=== PATIENT | female | born 1935 | race Caucasian/White ===

== ENCOUNTER 2017-08-06 15:55 | Emergency (ER) | payer MEDICARE, BC ==
[2017-08-06 16:31] VITALS: BP 167/78; PULSE 96; RESP 18; TEMP 98.3
--- NOTE | 2017-08-06 17:59 | ED ---
General Adult HPI - General Chief complaint: Extremity Problem,Nontraumatic Stated complaint: left leg pain Time Seen by Provider: 08/06/17 17:13 Source: patient, RN notes reviewed, old records reviewed Mode of arrival: wheelchair Limitations: no limitations - History of Present Illness Initial comments: 81-year-old female presents emergency Department with chief complaint of left lower extremity pain. Patient states that today she felt a pop in her knee and complains of pain within the posterior stress of her leg. She does have a history of varicose veins. She states that she has had no history of blood clots. Patient relates that she reports no significant swelling to the leg. Denies any peripheral paresthesias. She states that the pain is worse with range of motion and flexion. - Related Data Previous Rx's Medication Instructions Recorded Ibuprofen 600 mg PO TID #20 tablet 08/06/17 Allergies Allergy/AdvReac Type Severity Reaction Status Date / Time codeine Allergy Nausea Verified 08/06/17 16:31 hydrocodone [From Vicodin] Allergy Nausea Verified 08/06/17 16:31 Review of Systems ROS Statement: Those systems with pertinent positive or pertinent negative responses have been documented in the HPI. ROS Other: All systems not noted in ROS Statement are negative. Past Medical History Past Medical History: No Reported History History of Any Multi-Drug Resistant Organisms: None Reported Past Surgical History: Hysterectomy, Joint Replacement Additional Past Surgical History / Comment(s): right and left hip replacement, bunionectomy Past Psychological History: No Psychological Hx Reported Smoking Status: Never smoker Past Alcohol Use History: None Reported Past Drug Use History: None Reported General Exam - General Exam Comments Initial Comments: 81-year-old female. Alert and oriented. No distress. Limitations: no limitations Head exam: Present: atraumatic, normocephalic, normal inspection Eye exam: Present: normal appearance, PERRL, EOMI. Absent: scleral icterus, conjunctival injection, periorbital swelling ENT exam: Present: normal exam, mucous membranes moist Neck exam: Present: normal inspection. Absent: tenderness, meningismus, lymphadenopathy Respiratory exam: Present: normal lung sounds bilaterally. Absent: respiratory distress, wheezes, rales, rhonchi, stridor Cardiovascular Exam: Present: regular rate, normal rhythm, normal heart sounds. Absent: systolic murmur, diastolic murmur, rubs, gallop, clicks GI/Abdominal exam: Present: soft, normal bowel sounds. Absent: distended, tenderness, guarding, rebound, rigid Extremities exam: Present: normal inspection, full ROM, normal capillary refill. Absent: tenderness, pedal edema, joint swelling, calf tenderness Left Upper Leg exam: Present: normal inspection, full ROM Knee exam: Present: normal inspection. Absent: full ROM (Patient reports pain with flexion greater than 90.) Lower Leg exam: Present: full ROM (Evidence of varicose veins over the left lower extremity. She reports these have been chronic.). Absent: normal inspection Ankle exam: Present: normal inspection, full ROM Foot/Toe exam: Present: normal inspection, full ROM Neurovascular tendon exam: Present: no vascular compromise Gait: observed and limited by pain Course Vital Signs 08/06/17 16:27 Temperature 98.3 F Pulse Rate 96 Respiratory 18 Rate Blood Pressure 167/78 O2 Sat by Pulse 98 Oximetry Procedures - Orthopedic Splinting/Casting Injury #1 Side: left Lower Extremity Injury Location: knee Lower Extremity Immobilizer: knee immobilizer Medical Decision Making - Medical Decision Making Patient is an 81-year-old female chief complaint of left knee pain for the past 2 days. She reports that today she felt a popping sensation within her knee. She is also concern for possibility of a blood clot. She has had varicose veins. Temperature ultrasound was performed and negative for DVT. X-ray showed a normal knee and. Patient does have some pain with range of motion of her knee. Due to question the possibility of ligamentous or meniscal injury. I informed Patient of these results. Discussed following up with Dr. wojciech Mccarty the orthopedics physician. We'll put the Patient on anti-inflammatory medicine and keep the knee up and elevated. Discharge her with any immobilizer. All questions answered and return parameters were discussed. - Radiology Data Radiology results: report reviewed Negative left knee exam. Ultrasound is negative for DVT. Disposition Clinical Impression: Left knee sprain Disposition: HOME SELF-CARE Condition: Good Instructions: Knee Sprain (ED) Additional Instructions: Patient has a follow-up with primary care provider. Take anti-inflammatory medicine as prescribed. Use Shukri wrap. Return to the emergency department if any alarming signs or symptoms occur. Follow-up with manipulative therapy specialist. Prescriptions: Ibuprofen 600 mg PO TID #20 tablet Is patient prescribed a controlled substance at d/c from ED?: No When asked, does pt state using other controlled substances?: No If prescribed controlled substance>3 days was MAPS reviewed?: No If opioid is for acute pain is fill amount 7 days or less?: No If Rx opioid, was Start Talking consent form obtained?: No Referrals: Esau Wiley MD [Primary Care Provider] - 1-2 days Gage Fontana DO [Doctor of Osteopathic Medicine] - 1-2 days Time of Disposition: 18:35
--- NOTE | 2017-08-06 18:14 | XR ---
EXAMINATION TYPE: XR knee complete LT DATE OF EXAM: 08/06/2017 COMPARISON: NONE HISTORY: Knee pain TECHNIQUE: 3 views FINDINGS: I see no fracture nor dislocation. Joint spaces are normal. There is spurring on the superi or patella. There is no sign of a joint effusion. IMPRESSION: Negative left knee exam.
--- NOTE | 2017-08-06 18:26 | US ---
EXAMINATION TYPE: US venous doppler duplex LE LT DATE OF EXAM: 08/06/2017 6:09 PM COMPARISON: NONE CLINICAL HISTORY: Pain. Left leg pain SIDE PERFORMED: left TECHNIQUE: The lower extremity deep venous system is examined utilizing real time linear array sonog ermelinda with graded compression, doppler sonography and color-flow sonography. VESSELS IMAGED: External Iliac Vein (EIV) Common Femoral Vein Deep Femoral Vein Greater Saphenous Vein * Femoral Vein Popliteal Vein Small Saphenous Vein * Proximal Calf Veins (* superficial vessels) Left Leg: No evidence of DVT as visualized. Patient unable to tolerate compression at lower femoral vein IMPRESSION: Negative exam. No evidence of deep venous thrombosis in the left leg.
== END 2017-08-06 19:10 | disposition home or self-care (01) ==
LOC: EC 15:55
DX: S83.92XA Sprain of unspecified site of left knee, initial encounter (principal); Z88.5 Allergy status to narcotic agent; M79.605 Pain in left leg
CPT/HCPCS: 99284

== ENCOUNTER → 2017-08-13 | Outpatient (CLI) | payer MEDICARE, BC ==
--- NOTE | 2017-08-13 10:21 | MR ---
EXAMINATION TYPE: MR knee LT wo con DATE OF EXAM: 08/13/2017 COMPARISON: Outside left knee x-ray from yesterday HISTORY: Left knee pain per order. Possible turning injury with pain since August 06 per patient. TECHNIQUE: Multiplanar, multisequence images of the knee is performed without IV contrast. FINDINGS: MEDIAL MENISCUS: Anterior horn is intact without tear. There is subtle globular increased signal post erior horn of medial meniscus appears to extend to inferior articular surface. LATERAL MENISCUS: Anterior and posterior horns are intact without tear. CRUCIATE LIGAMENTS: The anterior and posterior cruciate ligaments are intact and unremarkable. COLLATERAL LIGAMENTS: The medial collateral ligament and lateral collateral ligament complex are inta ct . Mild to moderate increased fluid signal surrounds the medial collateral ligament. EXTENSOR MECHANISM: Visualized quadriceps and patellar tendons are intact. Some mild spurring from leigh perior anterior patella is noted. EFFUSION: There is fairly moderate to large suprapatellar joint effusion. POPLITEAL CYST: No popliteal/giordano cyst. TRICOMPARTMENT SPACES: There is fairly moderate joint space loss patellofemoral and medial tibiofemor al compartments. There is relative sparing of lateral tibiofemoral compartment. CARTILAGE: There is chondromalacia patella with thinning of articular cartilage along posterior cartagena lar pole. There is fissuring and cartilaginous loss of articular cartilage medial tibiofemoral compar tment. BONE MARROW SIGNAL: Slight heterogeneity without suspicious edema. OTHER: Moderate to severe subcutaneous edema anterior inferior prepatellar subcutaneous tissue. IMPRESSION: 1. Mild to moderate MCL sprain injury. 2. Background moderate osteoarthritic changes patellofemoral and medial tibiofemoral compartments. 3. At least intrasubstance but probable full-thickness tear posterior horn of medial meniscus. 4. Moderate to large suprapatellar joint effusion.
== END | disposition home or self-care (01) ==
LOC: RADMRIMAIN 09:26
PROVIDERS: ATTEND Orthopaedic Surgery
DX: S83.412A Sprain of medial collateral ligament of left knee, initial encounter (principal); M17.12 Unilateral primary osteoarthritis, left knee

== ENCOUNTER 2017-10-02 07:12 | Day surgery (SDC) | payer MEDICARE, BC ==
--- NOTE | 2017-10-01 14:52 | HP ---
HISTORY AND PHYSICAL SURGERY: 10/02/2017 Jennifer Weir an 81-year-old patient seen with progressive left knee pain. Treatment options were discussed. She elected to proceed left knee arthroscopy. Consent was obtained. Medical clearance from Dr. Wiley. PAST MEDICAL HISTORY: Noncontributory. PAST SURGICAL HISTORY: Cholecystectomy, hysterectomy, hip surgery. DAILY MEDICATIONS: None reported. ALLERGIES: CODEINE, VICODIN, SULFA. SOCIAL HISTORY: Patient denies tobacco use. PHYSICAL EXAMINATION: Evaluation left knee: Range of motion is -2/3 to 115 degrees. Mild effusion. Medial and lateral joint line tenderness. Positive medial Jerome's. Ligaments stable. Hip rotation without pain. Distal neurovascular exam intact. RADIOGRAPHS: Left knee revealed mild osteoarthritis. MRI left knee revealed medial meniscal tear. IMPRESSION: Internal derangement, left knee with medial meniscal tear. PLAN: Left knee arthroscopy with partial meniscectomy and debridement. MMODL / IJN: [id number] /
[~2017-10-02 07:12] MED LIST: DEXAMETHASONE SOD PHOSPHATE 10 MG/ML 1 ML VIAL IV ONE; LACTATED RINGERS 1,000 ML IV SCH; LIDOCAINE 1% 20 ML VIAL (10MG/ML) FOR IV START INTRADERMA PRN; MIDAZOLAM 2 MG/2 ML VIAL IV PRN; ONDANSETRON 4 MG/2 ML VIAL IVP ONE; SCOPOLAMINE 1.5MG/72HR PATCH TRANSDERM ONE; ceFAZolin IN SWFI 2 GM/20 ML SYRINGE IVP ONE
[2017-10-02] MEDS ORDERED: BUPIVACAIN-EPI 0.5%-1:200,000 30 ML VIAL SQ ONE ×2 (08:36→08:56)
[2017-10-02] MEDS ORDERED: PROPOFOL 10 MG/ML 20 ML VIAL IV ONE (08:38)
[2017-10-02] MEDS ORDERED: fentaNYL (PF) 50 MCG/ML 2 ML AMP ONE (08:38)
[2017-10-02] MEDS ORDERED: MIDAZOLAM 2 MG/2 ML VIAL ONE (08:38)
[2017-10-02] MEDS ORDERED: LIDOCAINE 1% INJ 10MG/ML (20 ML MDV) ONE (08:38)
[2017-10-02 09:26] VITALS: TEMP 96.8
--- NOTE | 2017-10-02 09:34 | P.OP ---
Date of Procedure: 10/02/17 Preoperative Diagnosis: Internal derangement left knee Postoperative Diagnosis: 1. Tear medial and lateral meniscus left knee 2. Grade 4 chondromalacia medial femoral condyle left knee 3. 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 Reactive synovitis medial, lateral and suprapatellar compartments left knee Procedure(s) Performed: 1. Arthroscopic partial medial and lateral meniscectomy left knee 2. Arthroscopic microfracture medial femoral condyle left knee 3. Arthroscopic chondroplasty medial femoral condyle left knee 4. Arthroscopic chondroplasty patellofemoral joint left knee 5. Arthroscopic partial synovectomy medial, lateral and suprapatellar compartments left knee Anesthesia: TARUNA, local Surgeon: Gage Fontana Estimated Blood Loss (ml): 10 Pathology: none sent Condition: stable Disposition: PACU Indications for Procedure: 81-year-old patient was seen with progressive left knee pain. After having treatment options discussed, she elected to proceed with arthroscopy. Operative Findings: see description of procedure Description of Procedure: Patient was taken to the operative suite. Patient underwent a general anesthetic by the department of anesthesia. Patient was given preoperative antibiotics. The left lower extremity was placed in a well-padded arthroscopic leg zayas. The left leg was prepped and draped in the normal sterile orthopedic fashion. A lateral parapatellar and suprapatellar incision was made. Trochars were inserted. Arthroscopy was initiated. Suprapatellar pouch revealed diffuse thick reactive synovitis. The patellofemoral joint appeared to articulate congruently. There was grade 3 chondromalacia the patella and grade 4 chondromalacia of the femoral sulcus both sides had osteochondral tears present. The scope was guided into the medial gutter. No loose bodies or plica were identified. The scope was then guided into the medial compartment. A medial parapatellar incision was made. Trocar inserted followed by probe. Was a radial tear posterior horn medial meniscus. There were grade 4 chondromalacia changes of the medial femoral condyle with osteochondral tears present. There was diffuse thick reactive synovitis anteriorly. I performed a partial medial meniscectomy getting down to stable meniscal tissue. I performed a chondroplasty of the medial femoral condyle down to stable tissue. I performed a partial synovectomy decompressing the thick reactive synovitis. I did note an area measuring approximately 1 cm of nearly exposed bone weightbearing surface medial femoral condyle. I performed a microfracture to that area penetrating the bone. There was good bleeding at the microfracture site noted once it was completed. The residual osteochondral surface was noted to be stable. There was good decompression of the reactive synovitis anteriorly. Scope and probe were then guided into the intercondylar notch. Cruciates were identified, probed and found to be stable. The scope and probe were then guided into lateral compartment. Was a small radial tear mid body lateral meniscus. Diffuse thick reactive synovitis along the anterior aspect of the lateral compartment was present. There were grade 1 chondral malacia changes lateral compartment with no osteochondral tears present. I performed a partial lateral meniscectomy down to stable tissue. I performed a partial synovectomy decompressing the thick reactive synovitis lateral compartment. The residual meniscus was found to be stable. The scope was in guided back into the suprapatellar compartment. The motorize shaver was introduced into the super patellar compartment. I performed a chondroplasty of the patella and femoral sulcus getting down to stable osteochondral tissue. I performed a partial synovectomy decompressing the thick reactive synovitis in the suprapatellar compartment. The residual osteochondral surface of the patella and femoral sulcus was stable with again grade 3 and 4 chondromalacia changes. Instruments were now removed from the joint. The joint was infiltrated with .25 % Marcaine. Steri-Strips were applied to the portal sites. Sterile dressings were applied. The patient was placed into a YVONEN hose. No tourniquet was utilized. The patient was awakened, transferred to a bed and taken to recovery stable satisfactory condition.
[2017-10-02] MEDS: HYDROmorphone 0.5 MG/0.5 ML SYRINGE IVP PRN ×2 (09:48→09:52)
[2017-10-02 11:39] VITALS: BP 166/80; RESP 16
[2017-10-02] MEDS ORDERED: LACTATED RINGERS 1,000 ML IV ONE (11:39)
[2017-10-02 12:02] VITALS: PULSE 94
== END 2017-10-02 12:42 | disposition home or self-care (01) ==
LOC: OR 07:12
PROVIDERS: ATTEND Orthopaedic Surgery
DX: M23.322 Other meniscus derangements, posterior horn of medial meniscus, left knee (principal); M23.362 Other meniscus derangements, other lateral meniscus, left knee; M94.262 Chondromalacia, left knee; M65.88 Other synovitis and tenosynovitis, other site; Z88.5 Allergy status to narcotic agent; Z88.2 Allergy status to sulfonamides; Z90.710 Acquired absence of both cervix and uterus; Z96.643 Presence of artificial hip joint, bilateral
CPT/HCPCS: 29880; 29879; J2250; J1100; J2405; J2001; J3010; J2704; J1170; J0690

== ENCOUNTER 2023-06-05 17:33 | Inpatient (IN) | payer MEDICARE, BC ==
--- NOTE | 2023-06-05 18:14 | ED ---
General Adult HPI - General Chief complaint: Shortness of Breath Stated complaint: Chest pain/SOB Time Seen by Provider: 06/05/23 17:59 Source: patient, RN notes reviewed, old records reviewed Mode of arrival: ambulatory Limitations: no limitations - History of Present Illness Initial comments: Patient is an 87-year-old female who presents emergency department after being sent in by Dr. Wiley for new onset A-fib with RVR and CHF. Patient endorses shortness of breath, orthopnea, lower extremity edema. Denies PND. States symptoms have been ongoing for few weeks. Shortness of breath started late February after episode of upper respiratory infection. Was found to be in A-fib with RVR today and was sent here for further evaluation. She has no significant past medical history is not on any medications. Denies any chest pain. Has no other acute complaints. Presents for further evaluation at this time. No significant cardiac history. - Related Data Home Medications Medication Instructions Recorded Confirmed Aspirin EC [Ecotrin Low Dose] 81 mg PO DAILY 06/05/23 06/05/23 Cetirizine HCl [Zyrtec] 10 mg PO DAILY 06/05/23 06/05/23 Dextromethorphan Polistirex 30 mg PO Q12H PRN 06/05/23 06/05/23 [Delsym] Ergocalciferol [Vitamin D2 (1250 1,250 mcg PO Q14D 06/05/23 06/05/23 Mcg = 35497 Iu)] Multivitamins, Thera [Multivitamin 1 tab PO DAILY 06/05/23 06/05/23 (formulary)] Turmeric(Unknown Dose) 1 tab PO DAILY 06/05/23 06/05/23 Allergies Allergy/AdvReac Type Severity Reaction Status Date / Time Sulfa (Sulfonamide Allergy Rash/Hives Verified 06/05/23 19:23 Antibiotics) codeine AdvReac Nausea Verified 06/05/23 19:23 hydrocodone [From Vicodin] AdvReac Nausea Verified 06/05/23 19:23 Review of Systems ROS Statement: Those systems with pertinent positive or pertinent negative responses have been documented in the HPI. Review of Systems: CONST: Denies fever EYES: Denies blurry vision ENT: Denies nasal congestion C/V: Denies Chest pain RESP: Endorses shortness of breath GI: Denies abdominal pain : Denies dysuria SKIN: Denies rash. MSK: Denies joint pain. NEURO: Denies headache ROS Other: All systems not noted in ROS Statement are negative. Past Medical History Past Medical History: No Reported History Additional Past Medical History / Comment(s): torn meniscus left knee,varicose veins History of Any Multi-Drug Resistant Organisms: None Reported Past Surgical History: Cholecystectomy, Hysterectomy, Joint Replacement Additional Past Surgical History / Comment(s): right and left hip replacement, bunionectomy Past Anesthesia/Blood Transfusion Reactions: No Reported Reaction Past Psychological History: No Psychological Hx Reported Smoking Status: Never smoker Past Alcohol Use History: None Reported Past Drug Use History: None Reported - Past Family History Mother Family Medical History: No Reported History Sister(s) Family Medical History: Cancer Additional Family Medical History / Comment(s): breast,liver,stomach,MS General Exam - General Exam Comments Initial Comments: General: Appears in no acute distress. HEAD: Normal with no signs of head trauma. EYES: PERRLA, EOMI, conjunctiva normal, no discharge. ENT: Hearing grossly intact, normal oropharynx. RESPIRATORY: Clear breath sounds bilaterally. No wheezes, rales, or rhonchi. C/V: Irregular rate and rhythm. S1 and S2 auscultated, significant pitting edema bilateral lower extremities. Symmetrical., peripheral pulses 2+ and intact throughout ABD: Abd is soft, nontender, nondistended EXT: Normal range of motion, no obvious deformity SKIN: No rashes or lesions observed on exposed skin. NEURO: Alert and oriented x 4. Limitations: no limitations Course Vital Signs 06/05/23 06/05/23 06/05/23 17:39 19:00 20:00 Temperature 97.8 F Pulse Rate 152 H 101 H 105 H Respiratory 18 16 18 Rate Blood Pressure 149/95 140/89 141/62 O2 Sat by Pulse 97 95 96 Oximetry 06/05/23 22:19 Temperature Pulse Rate 110 H Respiratory 18 Rate Blood Pressure 106/75 O2 Sat by Pulse 95 Oximetry Medical Decision Making - Medical Decision Making Was pt. sent in by a medical professional or institution (, PA, MANAGER COMBINATION, urgent care, hospital, or penitentiary...) When possible be specific @ -Sent from Dr. Wiley Did you speak to anyone other than the patient for history (EMS, parent, family, police, friend...)? What history was obtained from this source @ -No Did you review nursing and triage notes (agree or disagree)? Why? @ -I reviewed and agree with nursing and triage notes Were old charts reviewed (outside hosp., previous admission, EMS record, old EKG, old radiological studies, urgent care reports/EKG's, penitentiary records)? Report findings @ -Old charts reviewed Differential Diagnosis (chest pain, altered mental status, abdominal pain women, abdominal pain men, vaginal bleeding, weakness, fever, dyspnea, syncope, headache, dizziness, GI bleed, back pain, seizure, CVA, palpatations, mental hea lth, musculoskeletal)? @ -Differential Dyspnea: Coronary syndrome, arrhythmia, tamponade, asthma, COPD, pulmonary embolism, pneumonia, pneumothorax, pulmonary effusion, anaphylaxis, diabetic ketoacidosis, flailed chest, pulmonary contusion, diaphragmatic rupture, anemia, neuromuscular, this is not meant to be an all-inclusive list. EKG interpreted by me (3pts min.). @ -As above X-rays interpreted by me (1pt min.). @ -Chest x-ray shows pulmonary vascular congestion with pleural effusions. CT interpreted by me (1pt min.). @ -None done U/S interpreted by me (1pt. min.). @ -None done What testing was considered but not performed or refused? (CT, X-rays, U/S, labs)? Why? @ -Considered CT chest to evaluate for PE however patient's D-dimer age- adjusted is within acceptable limits. What meds were considered but not given or refused? Why? @ -None Did you discuss the management of the patient with other professionals (professionals i.e. , PA, MANAGER COMBINATION, lab, RT, psych nurse, social sciences department chair, program management specialist, teacher, navy airspace officer, case planner)? Give summary @ -Discussed with Dr. Wiley who is in agreement the plan. Was smoking cessation discussed for >3mins.? @ -No Was critical care preformed (if so, how long)? @ -Yes, 37 minutes. Were there social determinants of health that impacted care today? How? (Homelessness, low income, unemployed, alcoholism, drug addiction, transportation, low edu. Level, literacy, decrease access to med. care, nursing home, rehab)? @ -No Was there de-escalation of care discussed even if they declined (Discuss DNR or withdrawal of care, Hospice)? DNR status @ -No What co-morbidities impacted this encounter? (DM, HTN, Smoking, COPD, CAD, Cancer, CVA, ARF, Chemo, Hep., AIDS, mental health diagnosis, sleep apnea, morbid obesity)? @ -None Was patient admitted / discharged? Hospital course, mention meds given and route, prescriptions, significant lab abnormalities, going to OR and other pertinent info. @ -Patient sent from PCPs office for admission for new onset A-fib and CHF. We will obtain cardiopulmonary workup. Patient is in A-fib with RVR on EKG with no signs of acute ischemia. Vital signs otherwise within acceptable limits. Patient was in agreement this plan. He has obvious clinical symptoms of CHF. Patient started on Cardizem drip and given a bolus for her A-fib with RVR. EKG shows A-fib with RVR. Chest x-ray shows pulmonary vascular congestion and pleural effusions. Laboratory studies remarkable for undetectable troponin. D- dimer 0.68 however age-adjusted this is within acceptable limits. BNP is 1200. Viral swabs negative. On reevaluation, patient's heart rate is improved near 100 bpm. Remains hemodynamically stable otherwise. Currently resting comfortably not requiring oxygen. We discussed her workup. She will be given IV Lasix and started on a heparin drip. Cardiology consulted and echo ordered. Patient was in agreement this plan. I spoke with Dr. Wiley who was in agreement this plan. Undiagnosed new problem with uncertain prognosis? @ -No Drug Therapy requiring intensive monitoring for toxicity (Heparin, Nitro, Insulin, Cardizem)? @ -Heparin, Cardizem Were any procedures done? @ -No Diagnosis/symptom? @ -New onset atrial fibrillation with RVR, CHF Acute, or Chronic, or Acute on Chronic? @ -Acute Uncomplicated (without systemic symptoms) or Complicated (systemic symptoms)? @ -Complicated Side effects of treatment? @ -No Exacerbation, Progression, or Severe Exacerbation? @ -No Poses a threat to life or bodily function? How? (Chest pain, [place], [place], pneumonia, PE, COPD, DKA, ARF, appy, cholecystitis, CVA, Diverticulitis, Homicidal, Suicidal, threat to staff... and all critical care pts) @ -Yes - Lab Data Result diagrams: 06/05/23 18:17 06/05/23 18:17 Lab Results 06/05/23 06/05/23 06/05/23 Range/Units 18:17 18:17 18:17 WBC 7.7 (3.8-10.6) k/uL RBC 3.67 L (3.80-5.40) m/uL Hgb 11.7 (11.4-16.0) gm/dL Hct 36.4 (34.0-46.0) % MCV 99.1 (80.0-100.0) fL MCH 31.9 (25.0-35.0) pg MCHC 32.2 (31.0-37.0) g/dL RDW 20.4 H (11.5-15.5) % Plt Count 190 (150-450) k/uL MPV 11.2 Neutrophils % 63 % Lymphocytes % 26 % Monocytes % 7 % Eosinophils % 1 % Basophils % 1 % Neutrophils # 4.8 (1.3-7.7) k/uL Lymphocytes # 2.0 (1.0-4.8) k/uL Monocytes # 0.6 (0-1.0) k/uL Eosinophils # 0.1 (0-0.7) k/uL Basophils # 0.1 (0-0.2) k/uL Hypochromasia Slight Anisocytosis Moderate Macrocytosis Moderate PT 13.3 H (10.0-12.5) sec INR 1.3 H (<1.2) APTT 19.5 L (22.0-30.0) sec D-Dimer 0.68 H (<0.60) mg/L FEU Sodium 140 (137-145) mmol/L Potassium 4.3 (3.5-5.1) mmol/L Chloride 108 H (98-107) mmol/L Carbon Dioxide 25 (22-30) mmol/L Anion Gap 7 mmol/L BUN 15 (7-17) mg/dL Creatinine 0.71 (0.52-1.04) mg/dL Est GFR (CKD-EPI)AfAm 89 (>60 ml/min/1.73 sqM) Est GFR (CKD-EPI)NonAf 77 (>60 ml/min/1.73 sqM) Glucose 107 H (74-99) mg/dL Calcium 9.0 (8.4-10.2) mg/dL Magnesium 2.0 (1.6-2.3) mg/dL Total Bilirubin 3.4 H (0.2-1.3) mg/dL AST 40 H (14-36) U/L ALT 41 H (4-34) U/L Alkaline Phosphatase 77 (38-126) U/L Troponin I (0.000-0.034) ng/mL NT-Pro-B Natriuret Pep 1280 pg/mL Total Protein 6.3 (6.3-8.2) g/dL Albumin 4.0 (3.5-5.0) g/dL Influenza Type A (PCR) (Not Detectd) Influenza Type B (PCR) (Not Detectd) RSV (PCR) (Not Detectd) SARS-CoV-2 (PCR) (Not Detectd) 06/05/23 06/05/23 Range/Units 18:17 18:17 WBC (3.8-10.6) k/uL RBC (3.80-5.40) m/uL Hgb (11.4-16.0) gm/dL Hct (34.0-46.0) % MCV (80.0-100.0) fL MCH (25.0-35.0) pg MCHC (31.0-37.0) g/dL RDW (11.5-15.5) % Plt Count (150-450) k/uL MPV Neutrophils % % Lymphocytes % % Monocytes % % Eosinophils % % Basophils % % Neutrophils # (1.3-7.7) k/uL Lymphocytes # (1.0-4.8) k/uL Monocytes # (0-1.0) k/uL Eosinophils # (0-0.7) k/uL Basophils # (0-0.2) k/uL Hypochromasia Anisocytosis Macrocytosis PT (10.0-12.5) sec INR (<1.2) APTT (22.0-30.0) sec D-Dimer (<0.60) mg/L FEU Sodium (137-145) mmol/L Potassium (3.5-5.1) mmol/L Chloride (98-107) mmol/L Carbon Dioxide (22-30) mmol/L Anion Gap mmol/L BUN (7-17) mg/dL Creatinine (0.52-1.04) mg/dL Est GFR (CKD-EPI)AfAm (>60 ml/min/1.73 sqM) Est GFR (CKD-EPI)NonAf (>60 ml/min/1.73 sqM) Glucose (74-99) mg/dL Calcium (8.4-10.2) mg/dL Magnesium (1.6-2.3) mg/dL Total Bilirubin (0.2-1.3) mg/dL AST (14-36) U/L ALT (4-34) U/L Alkaline Phosphatase (38-126) U/L Troponin I <0.012 (0.000-0.034) ng/mL NT-Pro-B Natriuret Pep pg/mL Total Protein (6.3-8.2) g/dL Albumin (3.5-5.0) g/dL Influenza Type A (PCR) Not Detected (Not Detectd) Influenza Type B (PCR) Not Detected (Not Detectd) RSV (PCR) Not Detected (Not Detectd) SARS-CoV-2 (PCR) Not Detected (Not Detectd) - EKG Data -: EKG Interpreted by Me EKG Comments: 12-lead Electrocardiogram Interpretation Note EKG was reviewed and interpreted by myself. 12-lead ECG performed at 1746 is interpreted by me as revealing atrial fibrillation with RVR at a rate of 141 beats per minute. [place] is normal. QRS duration is 84 ms, QTc is 371 ms. There were no ST or T wave abnormalities to suggest myocardial ischemia or injury. R wave progression across the precordium was satisfactory. By my interpretation this EKG is non-diagnostic for acute ischemia. Critical Care Time Critical Care Time: Yes Total Critical Care Time: 37 Disposition Clinical Impression: New onset a-fib, CHF (congestive heart failure) Disposition: ADMITTED IP TO THIS HOSP Condition: Stable Time of Disposition: 20:00
[2023-06-05] MEDS: DILTIAZEM DRIP BOLUS FROM BAG 1 MG SOLN IV ONE (18:29)
[2023-06-05] MEDS: DILTIAZEM 125 MG in SODIUM CHLORIDE 0.9% 100 ML IV SCH (18:29)
[2023-06-05] MEDS: ASPIRIN 81 MG PO STA (18:29)
[2023-06-05 18:55] LABS: ALT 41 U/L (4-34); AST 40 U/L (14-36); African American GFR (CKD) 89 (>60 ml/min/1.73 sqM); Alkaline Phosphatase 77 U/L (38-126); Anion Gap 7 mmol/L; Blood Urea Nitrogen 15 mg/dL (7-17); Carbon Dioxide 25 mmol/L (22-30); Chloride 108 mmol/L (98-107); Glucose 107 mg/dL (74-99); INR 1.3 (<1.2); Non-African American GFR(CKD) 77 (>60 ml/min/1.73 sqM); Potassium 4.3 mmol/L (3.5-5.1); Prothrombin Time 13.3 sec (10.0-12.5); Sodium 140 mmol/L (137-145); Total Bilirubin 3.4 mg/dL (0.2-1.3); Total Protein 6.3 g/dL (6.3-8.2)
[2023-06-05 18:56] LABS: Anisocytosis Moderate; Basophils # (A) 0.1 k/uL (0-0.2); Basophils % (A) 1 %; Eosinophils # (A) 0.1 k/uL (0-0.7); Eosinophils % (A) 1 %; HCT 36.4 % (34.0-46.0); HGB 11.7 gm/dL (11.4-16.0); Hypochromasia Slight; Lymphocytes % (A) 26 %; MCH 31.9 pg (25.0-35.0); MCHC 32.2 g/dL (31.0-37.0); MCV 99.1 fL (80.0-100.0); Macrocytosis Moderate; Mean Platelet Volume 11.2; Monocytes # (A) 0.6 k/uL (0-1.0); Monocytes % (A) 7 %; Neutrophils # (A) 4.8 k/uL (1.3-7.7); Neutrophils % (A) 63 %; Platelet Count 190 k/uL (150-450); RBC 3.67 m/uL (3.80-5.40); RDW 20.4 % (11.5-15.5); WBC 7.7 k/uL (3.8-10.6)
[2023-06-05 18:57] LABS: Partial Thromboplastin Time 19.5 sec (22.0-30.0)
[2023-06-05] MEDS ORDERED: HEPARIN SODIUM 1,000 UN/ML (10ML VL) IV PRN (19:00)
[2023-06-05 19:03] LABS: NT-Pro-B-Type Natriuretic Pept 1280 pg/mL
--- NOTE | 2023-06-05 19:42 | XR ---
EXAMINATION TYPE: XR chest 2V DATE OF EXAM: 06/05/2023 6:27 PM CLINICAL INDICATION:Female, 87 years old with history of difficulty breathing; [facility] COMPARISON: None TECHNIQUE: XR chest 2V. Frontal and lateral views of the chest.. FINDINGS: Heart is enlarged. Mild pulmonary vascular congestion. Mild left basilar pleural/parenchymal opacity. Diffuse interstitial coarsening likely chronic changes with mild superimposed edema not excluded. Rig ht costophrenic angle is sharp. Moderate degenerative changes of the spine and shoulders. No acute bony pathology evident. EKG leads overlie the chest. No indwelling lines are seen. IMPRESSION: Cardiomegaly with mild congestive changes. Left basilar pleural/parenchymal opacity, likely small ple ural effusion with adjacent edema and atelectasis, correlate clinically to exclude superimposed infec tion.
[2023-06-05] MEDS ORDERED: NALOXONE 0.4 MG/ML 1 ML VIAL IV PRN (19:59)
[2023-06-05] MEDS: HEPARIN SOD,PORK IN 0.45% NACL 25,000 UNIT in 0.45% NACL 1 250ML.BAG IV SCH (20:08)
[2023-06-05] MEDS: FUROSEMIDE 10 MG/ML 4 ML VIAL IV STA (20:08)
[2023-06-05] MEDS: HEPARIN SODIUM 1,000 UN/ML (10ML VL) IV ONE (20:13)
--- NOTE | 2023-06-05 21:00 | P.HPIM ---
History of Present Illness H&P Date: 06/05/23 HISTORY OF PRESENT ILLNESS: 87-year-old one of my office patient for over 10 years with history of osteoporosis, osteoarthritis, hyperlipidemia, elevated blood pressure who has been living independently for long time with no major complaint able to take care of her own affairs driving, cooking, baking, cleaning. About 2 weeks ago developed to have slight worsening shortness of breath with minimal exertion become quite debilitated. Respiratory diet over a month ago developed to have very bad sinusitis and since then did not improve. She was in the office on June 05, 2023 for the above complaint but examination she gained over 7 pounds and retain more fluid peripherally also developed to have very rapid pulse very irregular EKG showed A-fib with RVR with pulse at 130 bpm. With examination show slightly with fluid overload specially in the bases worse on the right side than the left side with possible slight pleural effusion. Patient was not running any fever or chills and according to her over 10 days ago was on trial for more viral bronchitis with no improvement. Chest x-ray was requested last week showed slight bit of fluid overload at the time. Patient was seen and evaluated in office EKG showed A-fib with RVR with recurrent symptoms specially with dyspnea and shortness of breath decided to send patient to the emergency department where was seen and evaluated Laboratory value shows normal hemoglobin elevated D-dimer was slightly bit abnormal PT/INR with abnormal liver function test with bilirubin of 3.4 glucose 107 normal kidney function, normal troponin and BNP of 1280 normal influenza A and influenza B with RSV and COVID. EKG in the emergency department again shows A- fib with RVR with pulse running at 140 beats per minutes more a flutter and tachycardia at this time. Patient was started on Cardizem drip and heparin drip with abnormal liver function test patient requested to go for an ultrasound also the D-dimer being elevated will have CTA to exclude possibility of pulmonary embolism and patient be hospitalized to be seen by cardiology echocardiogram was ordered the patient might require low dose of diuretics to keep the fluid overload down. REVIEW OF SYSTEMS: CONSTITUTIONAL: Elderly does not look in any respiratory distress. EYES: No icterus sclerae, no conjunctivitis. EARS, NOSE, MOUTH, THROAT, and FACE: No sore throat, lymphadenopathy, carotid bruits or deformity. RESPIRATORY: Positive shortness of breath cough wheezes. CARDIOVASCULAR: Positive PND orthopnea palpitation no angina. GASTROINTESTINAL: No Abd pain, Nausea or vomiting, no Diarrhea or constipation, No GI Bleed, no distention or masses. GENITOURINARY: Negative for Hematuria or UTI, no kidney stones. INTEGUMENT/BREAST: Negative for any muscular injury with mild osteoarthritis.. HEMATOLOGIC/LYMPHATIC: Negative for bleed or purpura. MUSCULOSKELTAL: Generalized muscle and joint pain. NEURLOGICAL: No LOC, Sz or syncope, blurred vision dizziness or abnormality.. BEHAVIORAL/PSYCH: Negative. ENDOCRINE: Negative. PHYSICAL EXAMINATION: General Appearance: Alert, cooperative, no distress, appears stated age. Neck HEENT: Supple, no lymphadenopathy, no thyroid enlargement, no carotid bruits. Lungs: Decreased breath sound bilaterally with fine rhonchi positive mild crackles in the bases spasmodics breath or wheezes. Chest Wall: Decreased expansion with deep inspiration especially in the right base, no tenderness and no deformity was found on exam, no costochondral pain or discomfort. There is a slight jaundice color on the surface part of the chest wall area. Heart: Irregular rate and rhythm, S1, S2 positive S3, positive jugular vein distention, positive systolic murmur with tachycardia of 140 bpm. Back: Symmetric, no curvature, ROM normal, no CVA tenderness. Abdomen: Soft, non-tender, bowel sounds active all four quadrants, no masses, significant hepatomegaly. Extremities: Extremities normal, atraumatic, no cyanosis or edema. Pulses: 2+ and symmetric. Skin: Jaundice with normal texture otherwise. Neurologic: Alert oriented x3 cranial nerves II through XII intact, no motor deficit, no abnormal balance or gait. ASSESSMENT AND PLAN: _Severe dyspnea and shortness of breath: Most likely diastolic congestive heart failure with possible systolic component I will depend on the finding of cardiac testing patient might have the A-fib started the shortness of breath or A-fib could be a sign of something proceed with arrhythmia including not limited to myocardial infarction our inflammation happened after infection. Will continue oxygen, updraft, continue to control the pulse rate further cardiac testing will be done. _A-fib with RVR: Newly onset, patient was started on Cardizem drip and heparin drip she will start beta-tiffany by tomorrow along with Eliquis but might require further testing, echocardiogram will be done if shows any decrease in ejection fraction patient might benefit from going for heart cath at the time. _Elevated D-dimer: CTA will be done to exclude possibility of PE. _Significant fluid overload which most likely diastolic congestive heart failure from mild cardiomyopathy related to A-fib specially with the symptoms had happened last 2 weeks this can be more acute than chronic in origin and treating the underlying disease might help but start using low-grade diuretics will help as well. _Jaundice with elevated liver function test not explain etiology, patient be going for an ultrasound of the liver also hepatitis panel will be done prior to exclude the possibility of clinical jaundice versus infectious process. With elevated PT/INR along with the elevated bilirubin and liver function test this could be more subacute hepatitis of certain type can be infectious or chemical. _Elevated blood pressure: Patient be on beta-tiffany eventually. _Chronic osteoporosis: Has been on calcium and vitamin D only no medication at this point. _Hyperlipidemia: With cholesterol was between 190 and 210 will initiate at least smaller dose of statin or can be higher intensity statin based on the finding in the next 24 hours. _Pleural effusion: Most likely from fluid overload related to heart failure from the A-fib. _GI prophylaxis: Patient be on Pepcid 20 mg daily. _DVT prophylaxis: Patient is on anticoagulation at this point. CODE STATUS: Full code. Admit patient to the inpatient service for more than 2 night stay. Past Medical History Past Medical History: No Reported History Additional Past Medical History / Comment(s): torn meniscus left knee,varicose veins History of Any Multi-Drug Resistant Organisms: None Reported Past Surgical History: Cholecystectomy, Hysterectomy, Joint Replacement Additional Past Surgical History / Comment(s): right and left hip replacement, bunionectomy Past Anesthesia/Blood Transfusion Reactions: No Reported Reaction Past Psychological History: No Psychological Hx Reported Smoking Status: Never smoker Past Alcohol Use History: None Reported Past Drug Use History: None Reported - Past Family History Mother Family Medical History: No Reported History Sister(s) Family Medical History: Cancer Additional Family Medical History / Comment(s): breast,liver,stomach,MS Medications and Allergies Home Medications Medication Instructions Recorded Confirmed Type Aspirin EC [Ecotrin Low Dose] 81 mg PO DAILY 06/05/23 06/05/23 History Cetirizine HCl [Zyrtec] 10 mg PO DAILY 06/05/23 06/05/23 History Dextromethorphan Polistirex 30 mg PO Q12H PRN 06/05/23 06/05/23 History [Delsym] Ergocalciferol [Vitamin D2 (1250 1,250 mcg PO Q14D 06/05/23 06/05/23 History Mcg = 81574 Iu)] Multivitamins, Thera [Multivitamin 1 tab PO DAILY 06/05/23 06/05/23 History (formulary)] Turmeric(Unknown Dose) 1 tab PO DAILY 06/05/23 06/05/23 History Allergies Allergy/AdvReac Type Severity Reaction Status Date / Time Sulfa (Sulfonamide Allergy Rash/Hives Verified 06/05/23 19:23 Antibiotics) codeine AdvReac Nausea Verified 06/05/23 19:23 hydrocodone [From Vicodin] AdvReac Nausea Verified 06/05/23 19:23 Physical Exam Vitals: Vital Signs Temp Pulse Resp BP Pulse Ox 06/05/23 20:00 105 H 18 141/62 96 06/05/23 19:00 101 H 16 140/89 95 06/05/23 17:39 97.8 F 152 H 18 149/95 97 Intake and Output 06/05/23 06/05/23 06/05/23 06:59 14:59 22:59 Other: Weight 77.564 kg Results CBC & Chem 7: 06/05/23 18:17 06/05/23 18:17 Labs: Abnormal Lab Results - Last 24 Hours (Table) 06/05/23 06/05/23 06/05/23 Range/Units 18:17 18:17 18:17 RBC 3.67 L (3.80-5.40) m/uL RDW 20.4 H (11.5-15.5) % PT 13.3 H (10.0-12.5) sec INR 1.3 H (<1.2) APTT 19.5 L (22.0-30.0) sec D-Dimer 0.68 H (<0.60) mg/L FEU Chloride 108 H (98-107) mmol/L Glucose 107 H (74-99) mg/dL Total Bilirubin 3.4 H (0.2-1.3) mg/dL AST 40 H (14-36) U/L ALT 41 H (4-34) U/L
[2023-06-05 22:09] LABS: Appearance,Urine Clear (Clear); Bilirubin,Urine Negative (Negative); Blood,Urine Negative (Negative); Color,Urine Colorless; Glucose,Urine (UA) Negative (Negative); Ketones,Urine Negative (Negative); Leukocyte Esterase,Urine Negative (Negative); Nitrite,Urine Negative (Negative); Protein,Urine Negative (Negative); Specific Gravity,Urine 1.005 (1.001-1.035); Urobilinogen,Urine <2.0 mg/dL (<2.0)
--- NOTE | 2023-06-06 00:01 | CT ---
EXAMINATION TYPE: CT chest angio for PE CT DLP: 473.7 mGycm, Automated exposure control for dose reduction was used. DATE OF EXAM: 06/05/2023 9:31 PM COMPARISON: Earlier same day chest x-ray CLINICAL INDICATION:Female, 87 years old with history of elevated DDimer and SOB; TAMMY/ AFIB/ COUGH TECHNIQUE/CONTRAST: CTA scan of the thorax is performed with IV Contrast, patient injected with 100 mL of Isovue 370, MIP images are created and reviewed these are created on a separate workstation.. FINDINGS: There is adequate contrast bolus and timing. PULMONARY ARTERIES: Evaluation of the peripheral smaller arteries are limited by the lung opacities. There is no evidence for a filling defect within the pulmonary vasculature to suggest acute pulmonary embolism. Pulmonary trunk is upper normal in size. Trunk measures 2.8 CM. AORTA: Mild atherosclerotic calcifications of the aorta and branches. Ascending aorta is fusiform di lated up to 3.7 CM, descending is 2.3 CM. Aorta shows no dissection flap. HEART: Heart is moderately enlarged. Some mitral valve and to a lesser degree aortic valve calcificat ions. No significant coronary arterial calcifications are seen. Trace pericardial effusion. LOWER NECK: Indistinct structures and artifacts. Hypodense nodule in the left thyroid lobe cannot be excluded. MEDIASTINUM: No enlarged nodes by CT size criteria. SOFT TISSUES/AXILLA: Unremarkable soft tissues. No axillary adenopathy. LUNGS/ PLEURA: Evaluation somewhat limited by motion. There are small to moderate-sized bilateral ple ural effusions, with adjacent opacities likely atelectasis. In the aerated lungs no acute infiltrate is seen. There are some scattered vague groundglass opacities throughout the lungs, probably on the b asis of edema. Mild stellate density near the right lung apex, presumably scarring. No evidence of pn eumothorax. AIRWAY: Central airways are patent. MUSCULOSKELETAL: Generalized osteopenia. Moderate degenerative changes throughout the spine with mild apex right curvature. Moderate degenerative changes of the shoulders. No clearly acute osseous abnor mality. UPPER ABDOMEN: Mild reflux of contrast to the level of the hepatic IVC and hepatic veins, can be seen with right heart insufficiency. Incidentally, the common hepatic artery arises separately from the r est of the celiac trunk. SMA is patent. Visualized renal artery origins are patent. No aneurysm seen. No mass of the visualized adrenals. The adrenals are mildly thickened which can be seen with hyperpl hayden. IMPRESSION: 1. No evidence of pulmonary embolism. 2. Fusiform ectasia of the ascending aorta, up to 3.7 cm. No evidence of dissection. 3. Cardiomegaly with findings suggesting moderate CHF, including pulmonary edema, small to moderate bilateral pleural effusions and reflux of contrast of the liver.
[2023-06-06 03:22] LABS: Hepatitis A Antibody IgM Nonreactive (Nonreactive); Hepatitis B Core IgM Nonreactive (Nonreactive); Hepatitis B Surface Antigen Nonreactive (Nonreactive); Hepatitis C IgG Antibody Nonreactive (Nonreactive)
--- NOTE | 2023-06-06 07:45 | US ---
EXAMINATION TYPE: US abdomen complete DATE OF EXAM: 06/06/2023 COMPARISON: NONE CLINICAL INDICATION: Female, 87 years old with history of abnormal LFT; Hx Cholecystectomy, afib, and constipation TECHNIQUE: Multiple sonographic images of the abdomen are obtained. FINDINGS: EXAM MEASUREMENTS: Liver Length: 12.3 cm Gallbladder Wall: Surgically absent cm CBD: 0.4 cm Spleen: 10.9 cm Right Kidney: 9.8 x 4.6 x 4.1 cm Left Kidney: 10.1 x 4.9 x 5.1 cm [employer] JOURNEYMAN NOTES: Bilateral pleural effusions noted Pancreas: Tail obscured by overlying bowel gas Liver: wnl Gallbladder: Surgically absent Evidence for sonographic Langford's sign: No CBD: wnl Spleen: wnl Right Kidney: wnl Left Kidney: wnl Upper IVC: wnl Abd Aorta: wnl The liver is homogenous. The intrahepatic portion of the IVC and proximal abdominal aorta are within normal limits. Common bile duct is unremarkable. The visualized portions of the pancreas are homo genous. The spleen is unremarkable. Kidneys are symmetric and free of hydronephrosis. No renal les ions are seen. IMPRESSION: No significant abnormality seen
[2023-06-06 08:01] LABS: Anisocytosis Moderate; Basophils # (A) 0.1 k/uL (0-0.2); Basophils % (A) 1 %; Eosinophils # (A) 0.2 k/uL (0-0.7); Eosinophils % (A) 3 %; HCT 37.2 % (34.0-46.0); HGB 11.6 gm/dL (11.4-16.0); Hypochromasia Moderate; Lymphocytes # (A) 1.8 k/uL (1.0-4.8); Lymphocytes % (A) 25 %; MCH 31.5 pg (25.0-35.0); MCHC 31.1 g/dL (31.0-37.0); MCV 101.1 fL (80.0-100.0); Macrocytosis Moderate; Mean Platelet Volume 11.1; Monocytes # (A) 0.4 k/uL (0-1.0); Monocytes % (A) 6 %; Neutrophils # (A) 4.5 k/uL (1.3-7.7); Neutrophils % (A) 63 %; Platelet Count 186 k/uL (150-450); RBC 3.67 m/uL (3.80-5.40); RDW 20.5 % (11.5-15.5); WBC 7.2 k/uL (3.8-10.6)
[2023-06-06 08:04] LABS: INR 1.4 (<1.2); Prothrombin Time 14.2 sec (10.0-12.5)
[2023-06-06] MEDS: FUROSEMIDE 10 MG/ML 4 ML VIAL IV SCH (08:10)
[2023-06-06] MEDS: MULTIVITAMINS, THERA 1 EACH TAB PO SCH (08:10)
[2023-06-06] MEDS: FAMOTIDINE 20 MG TAB PO SCH (08:10)
[2023-06-06] MEDS: ASPIRIN 81 MG PO SCH (08:10)
[2023-06-06] MEDS: LORATADINE 10 MG TAB PO SCH (08:10)
[2023-06-06 08:44] LABS: ALT 42 U/L (4-34); AST 40 U/L (14-36); African American GFR (CKD) >90 (>60 ml/min/1.73 sqM); Albumin 3.9 g/dL (3.5-5.0); Alkaline Phosphatase 73 U/L (38-126); Anion Gap 8 mmol/L; Blood Urea Nitrogen 16 mg/dL (7-17); Calcium 8.8 mg/dL (8.4-10.2); Carbon Dioxide 25 mmol/L (22-30); Chloride 105 mmol/L (98-107); Glucose 91 mg/dL (74-99); Lipase 128 U/L (23-300); Non-African American GFR(CKD) 78 (>60 ml/min/1.73 sqM); Potassium 3.7 mmol/L (3.5-5.1); Sodium 138 mmol/L (137-145); Total Bilirubin 3.9 mg/dL (0.2-1.3); Total Protein 6.4 g/dL (6.3-8.2)
[2023-06-06] MEDS ORDERED: TURMERIC PO SCH (09:00)
[2023-06-06] MEDS: APIXABAN 5 MG TAB PO SCH (09:32)
[2023-06-06] MEDS: METOPROLOL TARTRATE 50 MG TAB PO SCH (09:33)
--- NOTE | 2023-06-06 10:03 | CA ---
Transthoracic Echo Report Name: Rossy Weir Age: 87 Gender: F : 1935 Exam Date: 06/06/2023 08:16 Exam Location: [facility] Ht (in): 64 Wt (lb): 171 Ordering Physician: Jeremiah Barboza MD Attending/Referring Phys: Head Bone Grinder Janine Robert RCS Procedure CPT: Indications: chf Cardiac Hx: Technical Quality: Fair Contrast 1: Total Dose (mL): Contrast 2: Total Dose (mL): MEASUREMENTS (Male / Female) Normal Values 2D ECHO LV Diastolic Diameter PLAX 3.9 cm 4.2 - 5.9 / 3.9 - 5.3 cm LV Systolic Diameter PLAX 2.7 cm IVS Diastolic Thickness 0.9 cm 0.6 - 1.0 / 0.6 - 0.9 cm LVPW Diastolic Thickness 1.0 cm 0.6 - 1.0 / 0.6 - 0.9 cm LV Relative Wall Thickness 0.5 RV Internal Dim ED PLAX 3.0 cm LVOT Diameter 2.0 cm LV Diastolic Volume MOD BP 80.7 cm??? 67 - 155 / 56 - 104 cm??? LV Systolic Volume MOD BP 40.9 cm??? 22 - 58 / 19 - 49 cm??? LV Ejection Fraction MOD BP 49.3 % >= 55 % LV Cardiac Index MOD BP 2056.2 cm???/min???m??? LV Diastolic Volume MOD 4C 85.4 cm??? LV Systolic Volume MOD 4C 42.3 cm??? LV Ejection Fraction MOD 4C 50.5 % LV Cardiac Index MOD 4C 2226.9 cm???/min???m??? LV Diastolic Length 4C 8.3 cm LV Systolic Length 4C 7.2 cm LV Diastolic Volume MOD 2C 75.8 cm??? LV Systolic Volume MOD 2C 37.6 cm??? LV Ejection Fraction MOD 2C 50.3 % LV Cardiac Index MOD 2C 1971.9 cm???/min???m??? LV Diastolic Length 2C 8.4 cm LV Systolic Length 2C 7.7 cm LA Volume 70.7 cm??? 18 - 58 / 22 - 52 cm??? LA Volume Index 37.3 cm???/m??? 16 - 28 cm???/m??? Ascending Aorta Diameter 3.6 cm DOPPLER AV Peak Velocity 166.8 cm/s AV Peak Gradient 11.1 mmHg AV Mean Velocity 118.9 cm/s AV Mean Gradient 6.4 mmHg AV Velocity Time Integral 28.7 cm LVOT Peak Velocity 126.0 cm/s LVOT Peak Gradient 6.4 mmHg LVOT Velocity Time Integral 22.2 cm LVOT Stroke Volume 70.1 cm??? LVOT Stroke Volume Index 38.3 ml/m??? LVOT Cardiac Index 3623.1 cm???/min???m??? AV Area Cont Eq vti 2.4 cm??? AV Area Cont Eq pk 2.4 cm??? TR Peak Velocity 301.5 cm/s TR Peak Gradient 36.4 mmHg Right Ventricular Systolic Press 40.8 mmHg PV Peak Velocity 88.4 cm/s PV Peak Gradient 3.1 mmHg FINDINGS Left Ventricle Left ventricular ejection fraction is estimated at 50 % with beat to beat variability. Mildly increased posterior wall thickness. Mildly decreased left ventricular ejection fraction. No obvious regional wall motion abnormalities. Right Ventricle Normal right ventricular size with mildly reduced function. Mildly elevated right ventricular systolic pressure. Right Atrium Moderate right atrial dilatation by visual. Left Atrium Moderately increased left atrial volume. Mildly increased left atrial area. Mitral Valve Mitral valve thickened. No evidence for mitral valve prolapse. No mitral stenosis. Moderate mitral regurgitation. Aortic Valve Aortic valve not well visualized. No aortic stenosis. Mild aortic regurgitation. Tricuspid Valve Structurally normal tricuspid valve. No tricuspid stenosis. Moderate tricuspid regurgitation. Pulmonic Valve Pulmonic valve not well visualized. No pulmonic stenosis. No pulmonic regurgitation. Pericardium No pericardial effusion. Left pleural effusion. Aorta Normal size aortic root and proximal ascending aorta. CONCLUSIONS Physical technically somewhat difficult study. LV size is normal ejection fraction is at the 50-55% range. There is some irregularity and rhythm. No wall motion abnormalities. Both atria are enlarged. There is aortic valve sclerosis and mitral annular calcification. There is eccentric moderate mitral regurgitation. Mild aortic regurgitation moderate tricuspid regurgitation. Mild pulmonary hypertension. No pericardial effusion Previewed by: Dr. Trini Reddy MD (Electronically Signed) Final Date: 06 June 2023 10:02
--- NOTE | 2023-06-06 10:38 | CDI ---
Documentation Clarification Form Date: 06/06/2023 10:19:30 AM From: Brigette Dominique RN CCDS Phone: [phone] Admit Date: 06/05/2023 07:59:00 PM Patient Name: Rossy Weir Visit Number: [id number] Discharge Date: ATTENTION: The Clinical Documentation Specialists (CDI) and [facility] Coding Staff appreciate your assistance in clarifying documentation. Please respond to the clarification below the line at the bottom and electronically sign. The CDI & [facility] Coding staff will review the response and follow-up if needed. Please note: Queries are made part of the Legal Health Record. If you have any questions, please contact the author of this message via ITS. Dr. Esau Wiley Your patient has the documented diagnosis of unspecified diastolic CHF 06/04, H&P. Additional information regarding the type, acuity of CHF is requested. History/Risk Factors: 87-year-old Female presents to the ED with shortness of breath that developed about two weeks ago and a weight gain of seven pounds and retaining fluid peripherally. Medical history: Chronic osteoporosis and HLD. H&P, 06/04 Clinical Indicators: VS/Pulse OX: B/P 149/95; HR 152; Temp 97.8F Oral; RR 18; SpO2 97% ra BMI 29.4kg BNP, 06/04: 1280 EKG, 06/04: Afib with RVR puls 130bpm Echocardiogram Results 06/05: LV EF 50-55% Both atria are enlarged. There is aortic valve sclerosis and mitral annular calcification. There is eccentric moderate mitral regurgitation. Mild aortic regurgitation moderate tricuspid regurgitation. Mild pulmonary hypertension. Chest X Ray, 06/04: Cardiomegaly with mild congestive changes. Left basilar pleural / parenchymal opacity, likely small pleural effusion with adjacent edema and atelectasis, correlate clinically. Treatment: 06/04 Lasix 40mg IV x 1; 06/05 Lasix 40mg IV Q12H, 06/05 Lopressor 100mg po BID, In your professional opinion, can you please clarify the acuity of CHF if known? [XX ] Acute Diastolic Heart Failure (preserved EF) [ ] Other, please specify [ ] Unable to determine (Template Last Revised: March 2020) MTDD
--- NOTE | 2023-06-06 11:04 | P.CRDCN ---
History of Present Illness Consult date: 06/06/23 Consult reason: atrial fibrillation (With RVR), congestive heart failure History of present illness: History of present illness: This is an 87-year-old female with past medical history of hyperlipidemia, hypertension. We have been asked to see the patient for CHF and new onset of A- fib with RVR. Patient was at Dr. Piña's office found to have weight gain of 7 pounds, edema and atrial fibrillation on EKG. patient complains of cough and shortness of breath starting in February when she had a cold. The symptoms seem to have progressed over the past month. She denies any chest pain. She has dyspnea on exertion as well as at rest. She has a little lightheadedness and dizziness. Patient has been started on heparin drip, Cardizem drip following a Cardizem bolus of 10 mg, IV Lasix x 1 and ordered for Lasix 40 mg IV every 12. Cardizem drip is currently at 5 mg/h. Patient is seen today in the emergency center waiting for bed on the cardiac stepdown unit. Echocardiogram has been done and report is pending. EKG atrial fibrillation at 141 bpm Chest x-ray: Cardiomegaly with mild congestive changes. Left basilar pleural parenchymal opacity likely small pleural effusion with adjacent edema and atelectasis. CTA of the chest shows no evidence of pulmonary embolism. Fusiform ectasia of the ascending aorta up to 3.7 cm. No evidence of dissection. Cardiomegaly with findings suggestive moderate CHF including pulmonary edema, small to moderate bilateral pleural effusions, and reflux of contrast of the liver. WBC 7.7, hemoglobin 11.7. INR 1.3. D-dimer 0.68. Sodium 140, potassium 4.2, BUN 15 creatinine 0.71. Troponin negative x 3. proBNP 1280. Magnesium 2.0. Glucose 107. Total bilirubin 3.4, AST 40, ALT 41. Influenza A, influenza B, RSV, COVID-19 not detected. Acute hepatitis panel was negative. Urinalysis negative. Home cardiac medications: Aspirin 81 mg daily. Review Of Systems: At the time of my exam: CONSTITUTIONAL: Denies fever or chills. HEENT: Denies blurred vision, vision changes, or eye pain. Denies hemoptysis CARDIOVASCULAR: Denies chest pain. Denies orthopnea. Denies PND. Denies palpitations RESPIRATORY: + shortness of breath. + silverman. GASTROINTESTINAL: Denies abdominal pain. Denies nausea or vomiting. HEMATOLOGIC: Denies bleeding disorders. GENITOURINARY: Denies any blood in urine. SKIN: Denies pruitis. Denies rash. Physical examination: Gen: This is an 87-year-old female in no acute distress VS: reviewed, blood pressure 118/66, heart rate 76, pulse ox 94% on room air. HEENT: Head is atraumatic, normocephalic. Pupils equal, round. Sclerae is anicteric. NECK: Supple. No JVD. LUNGS: Clear to auscultation. No wheezes or rhonchi. No intercostal retractions. HEART: Irregular rate and rhythm. Systolic murmur. ABDOMEN: Soft No tenderness. EXTREMITIES: No pedal edema. No calf tenderness. NEUROLOGICAL: Patient is awake, alert and oriented x3. Assessment: Acute diastolic heart failure New onset paroxysmal atrial fibrillation with RVR--new diagnosis but patient may have been in A-fib for the past month Elevated liver function test Hyperlipidemia Hypertension Plan: Discontinue aspirin, discontinue heparin drip in 5 hours after Eliquis Start patient on Eliquis 5 mg twice daily Start patient on Lopressor 100 mg twice daily and discontinue Cardizem drip in 5 hours Continue IV Lasix 40 mg every 12 Monitor GRICELDA, daily weights, electrolytes and renal function Lipid panel, TSH Obtain 2-D echocardiogram and Doppler study to assess cardiac structure and function Further recommendations to follow based upon clinical course Thank you kindly for this consultation. Nurse practitioner note has been reviewed, I agree with documented findings and plan of care. Patient was seen and examined. Past Medical History Past Medical History: No Reported History Additional Past Medical History / Comment(s): torn meniscus left knee,varicose veins History of Any Multi-Drug Resistant Organisms: None Reported Past Surgical History: Cholecystectomy, Hysterectomy, Joint Replacement Additional Past Surgical History / Comment(s): right and left hip replacement, bunionectomy Past Anesthesia/Blood Transfusion Reactions: No Reported Reaction Past Psychological History: No Psychological Hx Reported Smoking Status: Never smoker Past Alcohol Use History: None Reported Past Drug Use History: None Reported - Past Family History Mother Family Medical History: No Reported History Sister(s) Family Medical History: Cancer Additional Family Medical History / Comment(s): breast,liver,stomach,MS Medications and Allergies Home Medications Medication Instructions Recorded Confirmed Type Aspirin EC [Ecotrin Low Dose] 81 mg PO DAILY 06/05/23 06/05/23 History Cetirizine HCl [Zyrtec] 10 mg PO DAILY 06/05/23 06/05/23 History Dextromethorphan Polistirex 30 mg PO Q12H PRN 06/05/23 06/05/23 History [Delsym] Ergocalciferol [Vitamin D2 (1250 1,250 mcg PO Q14D 06/05/23 06/05/23 History Mcg = [id number] Iu)] Multivitamins, Thera [Multivitamin 1 tab PO DAILY 06/05/23 06/05/23 History (formulary)] Turmeric(Unknown Dose) 1 tab PO DAILY 06/05/23 06/05/23 History Allergies Allergy/AdvReac Type Severity Reaction Status Date / Time Sulfa (Sulfonamide Allergy Rash/Hives Verified 06/05/23 19:23 Antibiotics) codeine AdvReac Nausea Verified 06/05/23 19:23 hydrocodone [From Vicodin] AdvReac Nausea Verified 06/05/23 19:23 Physical Exam Vitals: Vital Signs Temp Pulse Resp BP Pulse Ox 06/06/23 06:41 76 18 118/66 94 L 06/06/23 04:27 98 18 126/81 97 06/06/23 02:33 74 18 120/90 93 L 06/05/23 22:19 110 H 18 106/75 95 06/05/23 20:00 105 H 18 141/62 96 06/05/23 19:00 101 H 16 140/89 95 06/05/23 17:39 97.8 F 152 H 18 149/95 97 Intake and Output 06/05/23 06/06/23 06/06/23 22:59 06:59 14:59 Other: Weight 77.564 kg Results 06/06/23 07:45 06/06/23 07:45 Cardiac Enzymes 06/05/23 06/05/23 06/05/23 Range/Units 18:17 18:17 21:54 AST 40 H (14-36) U/L Troponin I <0.012 0.015 (0.000-0.034) ng/mL 06/06/23 Range/Units 01:21 AST (14-36) U/L Troponin I 0.014 (0.000-0.034) ng/mL Coagulation 06/05/23 06/06/23 Range/Units 18:17 01:16 PT 13.3 H (10.0-12.5) sec APTT 19.5 L 47.3 H (22.0-30.0) sec CBC 06/05/23 Range/Units 18:17 WBC 7.7 (3.8-10.6) k/uL RBC 3.67 L (3.80-5.40) m/uL Hgb 11.7 (11.4-16.0) gm/dL Hct 36.4 (34.0-46.0) % Plt Count 190 (150-450) k/uL Comprehensive Metabolic Panel 06/05/23 Range/Units 18:17 Sodium 140 (137-145) mmol/L Potassium 4.3 (3.5-5.1) mmol/L Chloride 108 H (98-107) mmol/L Carbon Dioxide 25 (22-30) mmol/L BUN 15 (7-17) mg/dL Creatinine 0.71 (0.52-1.04) mg/dL Glucose 107 H (74-99) mg/dL Calcium 9.0 (8.4-10.2) mg/dL AST 40 H (14-36) U/L ALT 41 H (4-34) U/L Alkaline Phosphatase 77 (38-126) U/L Total Protein 6.3 (6.3-8.2) g/dL Albumin 4.0 (3.5-5.0) g/dL Current Medications Generic Name Dose Route Start Last Admin Trade Name Freq PRN Reason Stop Dose Admin Aspirin 81 mg 06/06/23 09:00 Aspirin 81 Mg PO DAILY VIDHYA Ergocalciferol 1,250 mcg 06/12/23 09:00 Ergocalciferol 1,250 Mcg (50,000 Iu) Capsule PO Q14D VIDHYA Famotidine 20 mg 06/06/23 09:00 Famotidine 20 Mg Tab PO DAILY VIDHYA Furosemide 40 mg 06/06/23 09:00 Furosemide 10 Mg/Ml 4 Ml Vial IV Q12HR VIDHYA Heparin Sodium (Porcine) 0 unit 06/05/23 19:00 Heparin Sodium 1,000 Un/Ml (10ml Vl) IV PER PROTOCOL PRN Low PTT Protocol Diltiazem HCl 125 mg/ Sodium 125 mls @ 5 mls/hr 06/05/23 18:15 06/05/23 18:29 Chloride IV 5 mg/hr .Q24H VIDHYA 5 mls/hr Administration 5 MG/HR Heparin Sodium/Sodium Chloride 250 mls @ 9.308 mls/hr 06/05/23 19:00 06/05/23 20:08 25,000 unit/ Sodium Chloride IV 12 units/kg/hr .Q24H VIDHYA 9.308 mls/hr Administration Protocol 12 UNITS/KG/HR Loratadine 10 mg 06/06/23 09:00 Loratadine 10 Mg Tab PO DAILY [facility] Multivitamins 1 each 06/06/23 09:00 Multivitamins, Thera 1 Each Tab PO DAILY VIDHYA Naloxone HCl 0.2 mg 06/05/23 19:59 Naloxone 0.4 Mg/Ml 1 Ml Vial IV Q2M PRN Opioid Reversal Intake and Output 06/05/23 06/06/23 06/06/23 22:59 06:59 14:59 Other: Weight 77.564 kg 06/05/23 18:17 06/05/23 18:17
[2023-06-06 17:36] VITALS: RESP 16
[2023-06-06] MEDS ORDERED: guaiFENesin SYRUP 100MG/5ML 200 MG/10 ML CUP PO PRN (18:19)
--- NOTE | 2023-06-07 08:17 | P.PN ---
Subjective Progress Note Date: 06/06/23 HISTORY OF PRESENT ILLNESS: 87-year-old one of my office patient for over 10 years with history of osteoporosis, osteoarthritis, hyperlipidemia, elevated blood pressure who has been living independently for long time with no major complaint able to take care of her own affairs driving, cooking, baking, cleaning. About 2 weeks ago developed to have slight worsening shortness of breath with minimal exertion become quite debilitated. Respiratory diet over a month ago developed to have very bad sinusitis and since then did not improve. She was in the office on June 05, 2023 for the above complaint but examination she gained over 7 pounds and retain more fluid peripherally also developed to have very rapid pulse very irregular EKG showed A-fib with RVR with pulse at 130 bpm. With examination show slightly with fluid overload specially in the bases worse on the right side than the left side with possible slight pleural effusion. Patient was not running any fever or chills and according to her over 10 days ago was on trial for more viral bronchitis with no improvement. Chest x-ray was requested last week showed slight bit of fluid overload at the time. Patient was seen and evaluated in office EKG showed A-fib with RVR with recurrent symptoms specially with dyspnea and shortness of breath decided to send patient to the emergency department where was seen and evaluated Laboratory value shows normal hemoglobin elevated D-dimer was slightly bit abnormal PT/INR with abnormal liver function test with bilirubin of 3.4 glucose 107 normal kidney function, normal troponin and BNP of 1280 normal influenza A and influenza B with RSV and COVID. EKG in the emergency department again shows A- fib with RVR with pulse running at 140 beats per minutes more a flutter and tachycardia at this time. Patient was started on Cardizem drip and heparin drip with abnormal liver function test patient requested to go for an ultrasound also the D-dimer being elevated will have CTA to exclude possibility of pulmonary embolism and patient be hospitalized to be seen by cardiology echocardiogram was ordered the patient might require low dose of diuretics to keep the fluid overload down. 03/07/2023: Her pulse rate had responded significantly to Cardizem drip initially and her pulse is running in the 70s and 80s still irregular look like she is having A-fib/a flutter causing new onset. Patient be started on Eliquis 5 mg twice a day and titrate Lopressor up to 100 mg twice a day discontinue Cardizem drip she is remain on furosemide 40 mg IV every 12 hours try to reduce her fluid overload which patient clinically feeling much better on the current medication medical management. Review her echocardiogram shows well-preserved ejection fraction at this point I think patient will require further workup cardiac cornejo at least to have stress test. REVIEW OF SYSTEMS: CONSTITUTIONAL: Elderly does not look in any respiratory distress. EYES: No icterus sclerae, no conjunctivitis. EARS, NOSE, MOUTH, THROAT, and FACE: No sore throat, lymphadenopathy, carotid bruits or deformity. RESPIRATORY: Positive shortness of breath cough wheezes. CARDIOVASCULAR: Positive PND orthopnea palpitation no angina. GASTROINTESTINAL: No Abd pain, Nausea or vomiting, no Diarrhea or constipation, No GI Bleed, no distention or masses. GENITOURINARY: Negative for Hematuria or UTI, no kidney stones. INTEGUMENT/BREAST: Negative for any muscular injury with mild osteoarthritis.. HEMATOLOGIC/LYMPHATIC: Negative for bleed or purpura. MUSCULOSKELTAL: Generalized muscle and joint pain. NEURLOGICAL: No LOC, Sz or syncope, blurred vision dizziness or abnormality.. BEHAVIORAL/PSYCH: Negative. ENDOCRINE: Negative. PHYSICAL EXAMINATION: General Appearance: Alert, cooperative, no distress, appears stated age. Neck HEENT: Supple, no lymphadenopathy, no thyroid enlargement, no carotid bruits. Lungs: Decreased breath sound bilaterally with fine rhonchi positive mild crackles in the bases spasmodics breath or wheezes. Chest Wall: Decreased expansion with deep inspiration especially in the right ba se, no tenderness and no deformity was found on exam, no costochondral pain or discomfort. There is a slight jaundice color on the surface part of the chest wall area. Heart: Irregular rate and rhythm, S1, S2 positive S3, positive jugular vein distention, positive systolic murmur with tachycardia of 140 bpm. Back: Symmetric, no curvature, ROM normal, no CVA tenderness. Abdomen: Soft, non-tender, bowel sounds active all four quadrants, no masses, significant hepatomegaly. Extremities: Extremities normal, atraumatic, no cyanosis or edema. Pulses: 2+ and symmetric. Skin: Jaundice with normal texture otherwise. Neurologic: Alert oriented x3 cranial nerves II through XII intact, no motor deficit, no abnormal balance or gait. ASSESSMENT AND PLAN: _Severe dyspnea and shortness of breath: Combination of new onset of A-fib, diastolic heart failure, fluid overload. Treat all of the above and hopefully that will improve his symptoms. _A-fib with RVR: Newly onset, switch Cardizem drip to metoprolol 100 mg twice a day, also switch heparin drip to Eliquis 5 mg twice a day. _Elevated D-dimer: CTA will be done to exclude possibility of PE. _Significant fluid overload which most likely diastolic congestive heart failure from mild cardiomyopathy related to A-fib still on IV furosemide for the next 24 hours. _Jaundice with elevated liver function test not explain etiology, patient be going for an ultrasound of the liver also hepatitis panel will be done prior to exclude the possibility of clinical jaundice versus infectious process. With elevated PT/INR along with the elevated bilirubin and liver function test this could be more subacute hepatitis of certain type can be infectious or chemical. Liver ultrasound is negative so far and hepatitis panel is negative. _Elevated blood pressure: She is on metoprolol 100 mg twice a day. _Chronic osteoporosis: Has been on calcium and vitamin D only no medication at this point. _Hyperlipidemia: With cholesterol was between 190 and 210 will initiate at least smaller dose of statin or can be higher intensity statin based on the finding in the next 24 hours. _Pleural effusion: Most likely from fluid overload related to heart failure and new onset of A-fib with RVR, hopefully with the diuretics and the management for fluid overload should take care of the pleural effusion as well. Prognosis: Fair. Management, patient still seeing cardiology might require stress test and further cardiac testing in the meanwhile switch her to oral medication patient will be in the hospital in the next 48 hours. Objective - Vital Signs Vital signs: Vital Signs Temp 97.8 F 06/05/23 17:39 Pulse 76 06/06/23 06:41 Resp 18 06/06/23 06:41 BP 118/66 06/06/23 06:41 Pulse Ox 94 L 06/06/23 06:41 FiO2 Intake & Output 06/05/23 06/05/23 06/06/23 06:59 18:59 06:59 Weight 77.564 kg - Labs CBC & Chem 7: 06/06/23 07:45 06/06/23 07:45 Labs: Abnormal Lab Results - Last 24 Hours (Table) 06/05/23 06/05/23 06/05/23 Range/Units 18:17 18:17 18:17 RBC 3.67 L (3.80-5.40) m/uL RDW 20.4 H (11.5-15.5) % PT 13.3 H (10.0-12.5) sec INR 1.3 H (<1.2) APTT 19.5 L (22.0-30.0) sec D-Dimer 0.68 H (<0.60) mg/L FEU Chloride 108 H (98-107) mmol/L Glucose 107 H (74-99) mg/dL Total Bilirubin 3.4 H (0.2-1.3) mg/dL AST 40 H (14-36) U/L ALT 41 H (4-34) U/L 06/06/23 Range/Units 01:16 RBC (3.80-5.40) m/uL RDW (11.5-15.5) % PT (10.0-12.5) sec INR (<1.2) APTT 47.3 H (22.0-30.0) sec D-Dimer (<0.60) mg/L FEU Chloride (98-107) mmol/L Glucose (74-99) mg/dL Total Bilirubin (0.2-1.3) mg/dL AST (14-36) U/L ALT (4-34) U/L
--- NOTE | 2023-06-07 09:35 | P.PN ---
Subjective Clean bed. She remains in atrial fibrillation with resting heart rates of between 100-110 beats a minute. She is currently on metoprolol 100 mg twice daily. Diltiazem has been discontinued She is on anticoagulation she is also on IV Lasix which I will discontinue today On examination she looks comfortable but her heart rates are definitely at rest 100-110 beats a minute Lungs are clear No JVD Her 2D echo shows preserved LV systolic function Impression Persistent atrial fibrillation with RVR, symptomatic Plan Increase metoprolol to 150 mg twice daily Stop IV Lasix Stop IV diltiazem Continue anticoagulation Observe for another 24 hours adequate rate control Objective - Vital Signs Vital signs: Vital Signs Temp 98.1 F 06/06/23 20:00 Pulse 98 06/07/23 05:22 Resp 16 06/07/23 05:22 BP 121/81 06/07/23 05:22 Pulse Ox 94 L 06/07/23 05:22 FiO2 Intake & Output 06/06/23 06/07/23 06/07/23 18:59 06:59 18:59 Intake Total 236 110 Output Total 1999 Ugaycxq -3464 110 Weight 73.3 kg Intake: Oral 236 110 Output: Urine 1999 Other: Voiding Method Toilet # Voids 1 1 - Labs CBC & Chem 7: 06/06/23 07:45 06/06/23 07:45
[2023-06-07 09:50] LABS: Chol/HDL Ratio 1.49 Ratio; LDL Cholesterol,Calculated 18.8 mg/dL (0.0-131.0); VLDL Calculation 11.82 mg/dL (5.00-40.00)
[2023-06-07] MEDS: METOPROLOL TARTRATE 50 MG TAB PO STA (10:08)
--- NOTE | 2023-06-07 11:08 | P.PN ---
Subjective Progress Note Date: 06/07/23 HISTORY OF PRESENT ILLNESS: 87-year-old one of my office patient for over 10 years with history of osteoporosis, osteoarthritis, hyperlipidemia, elevated blood pressure who has been living independently for long time with no major complaint able to take care of her own affairs driving, cooking, baking, cleaning. About 2 weeks ago developed to have slight worsening shortness of breath with minimal exertion become quite debilitated. Respiratory diet over a month ago developed to have very bad sinusitis and since then did not improve. She was in the office on June 05, 2023 for the above complaint but examination she gained over 7 pounds and retain more fluid peripherally also developed to have very rapid pulse very irregular EKG showed A-fib with RVR with pulse at 130 bpm. With examination show slightly with fluid overload specially in the bases worse on the right side than the left side with possible slight pleural effusion. Patient was not running any fever or chills and according to her over 10 days ago was on trial for more viral bronchitis with no improvement. Chest x-ray was requested last week showed slight bit of fluid overload at the time. Patient was seen and evaluated in office EKG showed A-fib with RVR with recurrent symptoms specially with dyspnea and shortness of breath decided to send patient to the emergency department where was seen and evaluated Laboratory value shows normal hemoglobin elevated D-dimer was slightly bit abnormal PT/INR with abnormal liver function test with bilirubin of 3.4 glucose 107 normal kidney function, normal troponin and BNP of 1280 normal influenza A and influenza B with RSV and COVID. EKG in the emergency department again shows A- fib with RVR with pulse running at 140 beats per minutes more a flutter and tachycardia at this time. Patient was started on Cardizem drip and heparin drip with abnormal liver function test patient requested to go for an ultrasound also the D-dimer being elevated will have CTA to exclude possibility of pulmonary embolism and patient be hospitalized to be seen by cardiology echocardiogram was ordered the patient might require low dose of diuretics to keep the fluid overload down. 06/06/2023: Her pulse rate had responded significantly to Cardizem drip initially and her pulse is running in the 70s and 80s still irregular look like she is having A-fib/a flutter causing new onset. Patient be started on Eliquis 5 mg twice a day and titrate Lopressor up to 100 mg twice a day discontinue Cardizem drip she is remain on furosemide 40 mg IV every 12 hours try to reduce her fluid overload which patient clinically feeling much better on the current medication medical management. Review her echocardiogram shows well-preserved ejection fraction at this point I think patient will require further workup cardiac cornejo at least to have stress test. June 07, 2023: The patient is doing much better today, seen cardiology and planning to switch her to oral furosemide from IV, her Lopressor will be increased to 150 mg twice a day patient be observed for 24 hours to make sure is not can have significant bradycardia with the medication run another lab tomorrow and if she is ready should be discharged home tomorrow. REVIEW OF SYSTEMS: CONSTITUTIONAL: Elderly does not look in any respiratory distress. EYES: No icterus sclerae, no conjunctivitis. EARS, NOSE, MOUTH, THROAT, and FACE: No sore throat, lymphadenopathy, carotid bruits or deformity. RESPIRATORY: Positive shortness of breath cough wheezes. CARDIOVASCULAR: Positive PND orthopnea palpitation no angina. GASTROINTESTINAL: No Abd pain, Nausea or vomiting, no Diarrhea or constipation, No GI Bleed, no distention or masses. GENITOURINARY: Negative for Hematuria or UTI, no kidney stones. INTEGUMENT/BREAST: Negative for any muscular injury with mild osteoarthritis.. HEMATOLOGIC/LYMPHATIC: Negative for bleed or purpura. MUSCULOSKELTAL: Generalized muscle and joint pain. NEURLOGICAL: No LOC, Sz or syncope, blurred vision dizziness or abnormality.. BEHAVIORAL/PSYCH: Negative. ENDOCRINE: Negative. PHYSICAL EXAMINATION: General Appearance: Alert, cooperative, no distress, appears stated age. Neck HEENT: Supple, no lymphadenopathy, no thyroid enlargement, no carotid bruits. Lungs: Decreased breath sound bilaterally with fine rhonchi positive mild crackles in the bases spasmodics breath or wheezes. Chest Wall: Decreased expansion with deep inspiration especially in the right base, no tenderness and no deformity was found on exam, no costochondral pain or discomfort. There is a slight jaundice color on the surface part of the chest wall area. Heart: Irregular rate and rhythm, S1, S2 positive S3, positive jugular vein distention, positive systolic murmur with tachycardia of 140 bpm. Back: Symmetric, no curvature, ROM normal, no CVA tenderness. Abdomen: Soft, non-tender, bowel sounds active all four quadrants, no masses, significant hepatomegaly. Extremities: Extremities normal, atraumatic, no cyanosis or edema. Pulses: 2+ and symmetric. Skin: Jaundice with normal texture otherwise. Neurologic: Alert oriented x3 cranial nerves II through XII intact, no motor deficit, no abnormal balance or gait. ASSESSMENT AND PLAN: _Severe dyspnea and shortness of breath: Combination of new onset of A-fib, diastolic heart failure, fluid overload. Treat all of the above and hopefully that will improve his symptoms. _A-fib with RVR: Newly onset, switch Cardizem drip to metoprolol 100 mg twice a day metoprolol was titrated up to 150 mg twice a day., also switch heparin drip to Eliquis 5 mg twice a day. _Elevated D-dimer: CTA will be done to exclude possibility of PE. _Significant fluid overload which most likely diastolic congestive heart failure from mild cardiomyopathy related to A-fib still on IV furosemide for the next 24 hours. _Jaundice with elevated liver function test not explain etiology, no major finding with testing this is probably related to hepatic stasis from her heart function and the A-fib and hopefully by clearing the complication from her A-fib and cardiomyopathy symptom will improve. _Elevated blood pressure: Increase metoprolol to 150 mg twice a day try to keep her pulse below 90. _Chronic osteoporosis: Has been on calcium and vitamin D only no medication at this point. _Hyperlipidemia: With cholesterol was between 190 and 210 will initiate at least smaller dose of statin or can be higher intensity statin based on the finding in the next 24 hours. _Pleural effusion: Most likely from fluid overload related to heart failure and new onset of A-fib with RVR, hopefully with the diuretics and the management for fluid overload should take care of the pleural effusion as well. Prognosis: Fair. Management, patient medication were adjusted DC IV furosemide switch to oral titrate metoprolol up to 150 mg twice a day prepare hopefully for home tomorrow. Objective - Vital Signs Vital signs: Vital Signs Temp 98.1 F 06/06/23 20:00 Pulse 98 06/07/23 05:22 Resp 16 06/07/23 05:22 BP 121/81 06/07/23 05:22 Pulse Ox 94 L 06/07/23 05:22 FiO2 Intake & Output 06/06/23 06/07/23 06/07/23 18:59 06:59 18:59 Intake Total 236 110 Output Total 1999 Balance -1764 110 Weight 73.3 kg Intake: Oral 236 110 Output: Urine 1999 Other: Voiding Method Toilet # Voids 1 1 - Labs CBC & Chem 7: 06/06/23 07:45 06/06/23 07:45 Labs: Abnormal Lab Results - Last 24 Hours (Table) 06/06/23 Range/Units 07:45 Total Bilirubin 3.9 H (0.2-1.3) mg/dL AST 40 H (14-36) U/L ALT 42 H (4-34) U/L
[2023-06-07] MEDS: METOPROLOL TARTRATE 50 MG TAB PO SCH (20:39)
--- NOTE | 2023-06-08 11:04 | P.PN ---
Subjective Progress Note Date: 06/08/23 The patient is an 87-year-old female who was sent to the emergency room by her primary care provider for new onset A-fib with RVR. Initially was started on Cardizem, but was then transition to oral beta-blockers. Echocardiogram has revealed EF of 50 to 55% with biatrial enlargement and moderate mitral re gurgitation heart rates have improved overnight. She states she is feeling much better since increasing the dose of her medications. No longer has a cough. She is able to get up and ambulate around her room. No chest pain or pressure. GENERAL: Well-appearing, well-nourished and in no acute distress. NECK: Supple without JVD or thyromegaly. LUNGS: Breath sounds clear to auscultation bilaterally. Respiration equal and unlabored. No wheezes, rales or rhonchi. HEART: Irregular rate and rhythm without murmurs, rubs or gallops. S1 and S2 heard. EXTREMITIES: Normal range of motion, no edema. No clubbing or cyanosis. Peripheral pulses intact and strong. TELEMETRY: Atrial fibrillation with heart rates in the 80s IMPRESSION: New onset of atrial fibrillation with RVR Acute diastolic heart failure Elevated liver function Hyperlipidemia Hypertension Mitral regurgitation PLAN: Continue current medication regimen Recommend the patient ambulate around the unit to assess for dyspnea and hetal vations in heart rate If patient remains stable, she may be discharged later today Outpatient follow-up with Dr. Marcelino in 2 weeks I am dictating on behalf of Dr Pedro Marcelino's history/physical and assessment/plan. Objective - Vital Signs Vital signs: Vital Signs Temp 98.0 F 06/07/23 19:37 Pulse 87 06/08/23 05:40 Resp 16 06/08/23 05:40 BP 119/78 06/08/23 05:40 Pulse Ox 93 L 06/08/23 05:40 FiO2 Intake & Output 06/07/23 06/08/23 06/08/23 18:59 06:59 18:59 Intake Total 570 540 236 Balance 570 540 236 Weight 73.5 kg Intake: Oral 570 540 236 Other: Voiding Method Toilet Toilet - Labs CBC & Chem 7: 06/06/23 07:45 06/06/23 07:45 Labs: Abnormal Lab Results - Last 24 Hours (Table) 06/06/23 Range/Units 07:45 HDL Cholesterol 62.40 H (40.00-60.00) mg/dL
--- NOTE | 2023-06-08 11:50 | P.DS ---
Providers Date of admission: 06/05/23 19:59 Attending physician: Esau Wiley Consults: 06/05/23 19:59 Consult Physician Routine Consulting Provider: [facility] Consult Reason/Comments: chf, new onset afib with rvr Do you want consulting provider notified?: Yes Primary care physician: Esau Wiley [facility] Course: HISTORY OF PRESENT ILLNESS: 87-year-old one of my office patient for over 10 years with history of osteoporosis, osteoarthritis, hyperlipidemia, elevated blood pressure who has been living independently for long time with no major complaint able to take care of her own affairs driving, cooking, baking, cleaning. About 2 weeks ago developed to have slight worsening shortness of breath with minimal exertion become quite debilitated. Respiratory diet over a month ago developed to have very bad sinusitis and since then did not improve. She was in the office on June 05, 2023 for the above complaint but examination she gained over 7 pounds and retain more fluid peripherally also developed to have very rapid pulse very irregular EKG showed A-fib with RVR with pulse at 130 bpm. With examination show slightly with fluid overload specially in the bases worse on the right side than the left side with possible slight pleural effusion. Patient was not running any fever or chills and according to her over 10 days ago was on trial for more viral bronchitis with no improvement. Chest x-ray was requested last week showed slight bit of fluid overload at the time. Patient was seen and evaluated in office EKG showed A-fib with RVR with recurrent symptoms specially with dyspnea and shortness of breath decided to send patient to the emergency department where was seen and evaluated Laboratory value shows normal hemoglobin elevated D-dimer was slightly bit abnormal PT/INR with abnormal liver function test with bilirubin of 3.4 glucose 107 normal kidney function, normal troponin and BNP of 1280 normal influenza A and influenza B with RSV and COVID. EKG in the emergency department again shows A- fib with RVR with pulse running at 140 beats per minutes more a flutter and tachycardia at this time. Patient was started on Cardizem drip and heparin drip with abnormal liver function test patient requested to go for an ultrasound also the D-dimer being elevated will have CTA to exclude possibility of pulmonary embolism and patient be hospitalized to be seen by cardiology echocardiogram was ordered the patient might require low dose of diuretics to keep the fluid overload down. 06/06/2023: Her pulse rate had responded significantly to Cardizem drip initially and her pulse is running in the 70s and 80s still irregular look like she is having A-fib/a flutter causing new onset. Patient be started on Eliquis 5 mg twice a day and titrate Lopressor up to 100 mg twice a day discontinue Cardizem drip she is remain on furosemide 40 mg IV every 12 hours try to reduce her fluid overload which patient clinically feeling much better on the current medication medical management. Review her echocardiogram shows well-preserved ejection fraction at this point I think patient will require further workup cardiac cornejo at least to have stress test. June 07, 2023: The patient is doing much better today, seen cardiology and planning to switch her to oral furosemide from IV, her Lopressor will be increased to 150 mg twice a day patient be observed for 24 hours to make sure is not can have significant bradycardia with the medication run another lab tomorrow and if she is ready should be discharged home tomorrow. June 08, 2023: Patient has done very well last 24 hours, was slightly bit tachycardic her Lopressor was increased up to 150 mg twice a day and has been running in the 60s and 70s since she is on anticoagulation tolerate medication very well with no complication or side effect so far. Patient had lost total of 10 pounds with her shortness of breath has improved significantly and hopefully if okay with cardiology will be able to send patient home today. REVIEW OF SYSTEMS: CONSTITUTIONAL: Elderly does not look in any respiratory distress. EYES: No icterus sclerae, no conjunctivitis. EARS, NOSE, MOUTH, THROAT, and FACE: No sore throat, lymphadenopathy, carotid bruits or deformity. RESPIRATORY: Positive shortness of breath cough wheezes. CARDIOVASCULAR: Positive PND orthopnea palpitation no angina. GASTROINTESTINAL: No Abd pain, Nausea or vomiting, no Diarrhea or constipation, No GI Bleed, no distention or masses. GENITOURINARY: Negative for Hematuria or UTI, no kidney stones. INTEGUMENT/BREAST: Negative for any muscular injury with mild osteoarthritis.. HEMATOLOGIC/LYMPHATIC: Negative for bleed or purpura. MUSCULOSKELTAL: Generalized muscle and joint pain. NEURLOGICAL: No LOC, Sz or syncope, blurred vision dizziness or abnormality.. BEHAVIORAL/PSYCH: Negative. ENDOCRINE: Negative. PHYSICAL EXAMINATION: General Appearance: Alert, cooperative, no distress, appears stated age. Neck HEENT: Supple, no lymphadenopathy, no thyroid enlargement, no carotid bruits. Lungs: Decreased breath sound bilaterally with fine rhonchi positive mild crackles in the bases spasmodics breath or wheezes. Chest Wall: Decreased expansion with deep inspiration especially in the right base, no tenderness and no deformity was found on exam, no costochondral pain or discomfort. There is a slight jaundice color on the surface part of the chest wall area. Heart: Irregular rate and rhythm, S1, S2 positive S3, positive jugular vein distention, positive systolic murmur with tachycardia of 140 bpm. Back: Symmetric, no curvature, ROM normal, no CVA tenderness. Abdomen: Soft, non-tender, bowel sounds active all four quadrants, no masses, significant hepatomegaly. Extremities: Extremities normal, atraumatic, no cyanosis or edema. Pulses: 2+ and symmetric. Skin: Jaundice with normal texture otherwise. Neurologic: Alert oriented x3 cranial nerves II through XII intact, no motor deficit, no abnormal balance or gait. ASSESSMENT AND PLAN: _New onset of A-fib with RVR: Newly onset, switch Cardizem drip to metoprolol 100 mg twice a day metoprolol was titrated up to 150 mg twice a day., also switch heparin drip to Eliquis 5 mg twice a day. Patient is doing very well will be discharged home today on current medication. _Severe dyspnea and shortness of breath: Combination of new onset of A-fib, diastolic heart failure, fluid overload. Treat all of the above and hopefully that will improve his symptoms. _Elevated D-dimer: CTA will be done to exclude possibility of PE. _Significant fluid overload which most likely diastolic congestive heart failure from mild cardiomyopathy related to A-fib still on IV furosemide for the next 24 hours. _Jaundice with elevated liver function test not explain etiology, no major finding with testing this is probably related to hepatic stasis from her heart function and the A-fib and hopefully by clearing the complication from her A-fib and cardiomyopathy symptom will improve. _Elevated blood pressure: Increase metoprolol to 150 mg twice a day try to keep her pulse below 90. _Chronic osteoporosis: Has been on calcium and vitamin D only no medication at this point. _Hyperlipidemia: Repeat lipid panel shows total cholesterol of 93 with LDL of 18 and VLDL of 11.8. Patient does not require any medication at this point. _Pleural effusion: Most likely from fluid overload related to heart failure and new onset of A-fib with RVR, hopefully with the diuretics and the management for fluid overload should take care of the pleural effusion as well. Prognosis: Fair. Management, patient medication were adjusted DC IV furosemide switch to oral titrate metoprolol up to 150 mg twice a day prepare hopefully for home on 06/08/2023. Discharge planning: Patient is doing very well moving around with pulse rate remained in the 60s and 70s he is feeling much better at this point. Continue current management patient be discharged home today to follow-up in the office on Friday we will check her CMP and CBC again being on anticoagulation should watch for any GI bleed patient still cannot be on anticoagulation. Hospital course: Hospital course was uneventful patient was hospitalized for an A-fib with RVR she was having significant fluid overload and shortness of breath secondary to diastolic congestive heart failure. Started on Cardizem drip switched to metoprolol eventually metoprolol was titrated up to 150 mg twice a day, patient also started on anticoagulation initially was on heparin drip and then switched to Eliquis 5 mg twice a day which seem to tolerate it very well eventually for her age she can probably do 2.5 mg of Eliquis twice a day. Will watch for any GI bleed. Medication also her echocardiogram showed well- preserved ejection fraction at 50 percentile with mild mitral regurgitation and mild aortic regurgitation does not require any intervention. Patient seen lard tub washer who agree with the current plan and management continue current plan for now patient has been doing pretty well had lost with diuretics initially over 10 pounds total and her shortness of breath disappeared completely she had slight fluid overload with mild pleural effusion on the right side on admission clinically this disappeared. Patient was educated on her condition will notify with her prognosis and medication and expectation for medication as well. Medication reconciliation and new prescription was sent to [facility] pharmacy before she left the hospital patient will be discharged today on 06/08/2023 to follow-up in the office in 48 hours. Time spent in discharging patient was 33 minutes. Patient Condition at Discharge: Stable Plan - Discharge Summary Discharge Rx Participant: No New Discharge Prescriptions: New Apixaban [Eliquis] 5 mg PO BID #60 tab guaiFENesin SYRUP 100MG/5ML [Robitussin] 200 mg PO Q6HR PRN ml PRN Reason: Cough Metoprolol Tartrate [Lopressor] 150 mg PO BID #180 tab Famotidine [Pepcid] 20 mg PO DAILY #30 tab Continue Multivitamins, Thera [Multivitamin (formulary)] 1 tab PO DAILY Cetirizine HCl [Zyrtec] 10 mg PO DAILY Ergocalciferol [Vitamin D2 (1250 Mcg = 33939 Iu)] 1,250 mcg PO Q14D Turmeric(Unknown Dose) 1 tab PO DAILY Dextromethorphan Polistirex [Delsym] 30 mg PO Q12H PRN PRN Reason: Cough Aspirin EC [Ecotrin Low Dose] 81 mg PO DAILY Discharge Medication List Aspirin EC [Ecotrin Low Dose] 81 mg PO DAILY 06/05/23 [History] Cetirizine HCl [Zyrtec] 10 mg PO DAILY 06/05/23 [History] Dextromethorphan Polistirex [Delsym] 30 mg PO Q12H PRN 06/05/23 [History] Ergocalciferol [Vitamin D2 (1250 Mcg = 44800 Iu)] 1,250 mcg PO Q14D 06/05/23 [History] Multivitamins, Thera [Multivitamin (formulary)] 1 tab PO DAILY 06/05/23 [History] Turmeric(Unknown Dose) 1 tab PO DAILY 06/05/23 [History] Apixaban [Eliquis] 5 mg PO BID #60 tab 06/08/23 [Rx] Famotidine [Pepcid] 20 mg PO DAILY #30 tab 06/08/23 [Rx] Metoprolol Tartrate [Lopressor] 150 mg PO BID #180 tab 06/08/23 [Rx] guaiFENesin SYRUP 100MG/5ML [Robitussin] 200 mg PO Q6HR PRN ml 06/08/23 [Rx] Follow up Appointment(s)/Referral(s): Pedro Marcelino MD [STAFF PHYSICIAN] - 2 Weeks Esau Wiley MD [Primary Care Provider] - 1-2 days Patient Instructions/Handouts: Heart Failure (DC), A-fib (Atrial Fibrillation) (DC) Discharge Disposition: HOME SELF-CARE
[2023-06-08 12:44] VITALS: BP 100/64; TEMP 97.4
[2023-06-08 14:42] VITALS: PULSE 99
[2023-06-12] MEDS ORDERED: ERGOCALCIFEROL 1,250 MCG (50,000 IU) CAPSULE PO SCH (09:00)
== END 2023-06-08 13:25 | disposition home or self-care (01) | DRG 291 ==
LOC: EC 17:33 → 3SCARD 19:59
PROVIDERS: ADMIT Internal Medicine Geriatric Medicine; ATTEND Internal Medicine Geriatric Medicine
DX: I11.0 Hypertensive heart disease with heart failure (principal); I50.31 Acute diastolic (congestive) heart failure; I48.19 Other persistent atrial fibrillation; I48.92 Unspecified atrial flutter; R17 Unspecified jaundice; I08.3 Combined rheumatic disorders of mitral, aortic and tricuspid valves; I27.20 Pulmonary hypertension, unspecified; I42.9 Cardiomyopathy, unspecified; E78.5 Hyperlipidemia, unspecified; M81.0 Age-related osteoporosis without current pathological fracture; R00.0 Tachycardia, unspecified; I77.810 Thoracic aortic ectasia; R79.1 Abnormal coagulation profile; Z79.01 Long term (current) use of anticoagulants; Z79.82 Long term (current) use of aspirin; Z79.899 Other long term (current) drug therapy; Z90.710 Acquired absence of both cervix and uterus; Z96.642 Presence of left artificial hip joint; Z90.49 Acquired absence of other specified parts of digestive tract
CPT/HCPCS: 36415; 71046; 71275; 76700; 80053; 80061; 80074; 81003; 83690; 83735; 83880; 84443; 84484; 85025; 85379; 85610; 85730; 87636; 93005; 93306; 96365; 96366; 96368; 96375; 96376; 99291

== ENCOUNTER 2023-06-26 22:33 | Emergency (ER) | payer MEDICARE, BC ==
[2023-06-26 23:02] VITALS: RESP 20
--- NOTE | 2023-06-26 23:41 | ED ---
SOB HPI - General Chief Complaint: Shortness of Breath Stated Complaint: Shortness of Breath Time Seen by Provider: 06/26/23 22:41 Source: patient, EMS Mode of arrival: EMS Limitations: no limitations - History of Present Illness Initial Comments: This patient is an 87-year-old woman who presents with complaint that she is having shortness of breath. The patient relates that this has been going on since April. She states that she since that time has been diagnosed with atrial fibrillation and started on medications. She states that she had been evaluated last week for shortness of breath. She states that her Lasix was increased to twice daily but she is back at her single daily dose now. She states that the shortness of breath is mainly with exertion. She finds if she gets up and walks that she rapidly tires. She does occasionally have cough with whitish sputum. Patient denies chest pain. No fever or chills. Very little dyspnea at rest. There is occasional orthopnea. She has not noted change in urination or bowel movements. She does have a little bit of bilateral edema left greater than right. MD Complaint: shortness of breath, cough Onset/Timin -: month(s) Severity scale (1-10): 0 Consistency: constant Improves With: rest Worsens With: lying flat, exertion Known History Of: other (Atrial fibrillation) Associated Symptoms: denies other symptoms - Related Data Home Oxygen Therapy: No Home Medications Medication Instructions Recorded Confirmed Flecainide Acetate [Tambocor] 100 mg PO Q12H 07/03/23 07/03/23 Previous Rx's Medication Instructions Recorded Apixaban [Eliquis] 5 mg PO BID #60 tab 06/08/23 Famotidine [Pepcid] 20 mg PO DAILY #30 tab 06/08/23 Furosemide [Lasix] 40 mg PO DAILY #30 tab 07/07/23 Lactulose [Cephulac] 10 gm PO BID #250 ml 07/07/23 Metoprolol Tartrate [Lopressor] 50 mg PO Q12H #60 tab 07/07/23 Allergies Allergy/AdvReac Type Severity Reaction Status Date / Time Sulfa (Sulfonamide Allergy Rash/Hives Verified 07/03/23 11:06 Antibiotics) codeine AdvReac Nausea Verified 07/03/23 11:06 hydrocodone [From Vicodin] AdvReac Nausea Verified 07/03/23 11:06 Review of Systems ROS Statement: Those systems with pertinent positive or pertinent negative responses have been documented in the HPI. ROS Other: All systems not noted in ROS Statement are negative. Constitutional: Denies: fever, chills Respiratory: Reports: cough, dyspnea Cardiovascular: Reports: orthopnea, edema. Denies: chest pain, palpitations, syncope Gastrointestinal: Denies: abdominal pain, nausea, vomiting Genitourinary: Denies: dysuria, hematuria Musculoskeletal: Denies: back pain Skin: Denies: rash Neurological: Denies: headache, weakness Past Medical History Past Medical History: No Reported History Additional Past Medical History / Comment(s): torn meniscus left knee,varicose veins History of Any Multi-Drug Resistant Organisms: None Reported Past Surgical History: Cholecystectomy, Hysterectomy, Joint Replacement Additional Past Surgical History / Comment(s): right and left hip replacement, bunionectomy Past Anesthesia/Blood Transfusion Reactions: No Reported Reaction Past Psychological History: No Psychological Hx Reported Smoking Status: Never smoker Past Alcohol Use History: None Reported Past Drug Use History: None Reported - Past Family History Mother Family Medical History: No Reported History Sister(s) Family Medical History: Cancer Additional Family Medical History / Comment(s): breast,liver,stomach,MS General Exam Limitations: no limitations General appearance: alert, in no apparent distress Head exam: Present: atraumatic, normocephalic Eye exam: Present: normal appearance. Absent: scleral icterus, conjunctival injection Neck exam: Present: normal inspection Respiratory exam: Present: rales (Lateral bases). Absent: respiratory distress, wheezes, rhonchi, stridor, accessory muscle use Cardiovascular Exam: Present: regular rate, normal rhythm, normal heart sounds. Absent: systolic murmur, diastolic murmur, rubs, gallop GI/Abdominal exam: Present: soft. Absent: distended, tenderness, guarding, rebound, rigid, mass Extremities exam: Present: normal inspection, normal capillary refill, pedal edema. Absent: calf tenderness Back exam: Present: normal inspection. Absent: CVA tenderness (R), CVA tenderness (L) Neurological exam: Present: alert Skin exam: Present: warm, dry, intact, normal color. Absent: rash Course Vital Signs 06/26/23 06/26/23 06/27/23 22:36 22:40 00:40 Temperature 96.9 F L Pulse Rate 97 99 Respiratory 20 20 20 Rate Blood Pressure 115/85 121/85 O2 Sat by Pulse 100 99 Oximetry 06/27/23 01:53 Temperature 97.2 F L Pulse Rate 81 Respiratory 20 Rate Blood Pressure 119/91 O2 Sat by Pulse 98 Oximetry Medical Decision Making - Medical Decision Making The patient had chest x-ray that I interpreted as consistent with mild congestive heart failure. No acute infiltrate or pneumothorax. Was pt. sent in by a medical professional or institution (, PA, OCCUPATIONAL THERAPIST ASSISTANTS, urgent care, hospital, or skilled nursing...) When possible be specific @ -[No] Did you speak to anyone other than the patient for history (EMS, parent, family, police, friend...)? What history was obtained from this source @ -[No] Did you review nursing and triage notes (agree or disagree)? Why? @ -[I reviewed and agree with nursing and triage notes] Were old charts reviewed (outside hosp., previous admission, EMS record, old EKG, old radiological studies, urgent care reports/EKG's, skilled nursing records)? Report findings @ -[No old charts were reviewed] Differential Diagnosis (chest pain, altered mental status, abdominal pain women, abdominal pain men, vaginal bleeding, weakness, fever, dyspnea, syncope, headac he, dizziness, GI bleed, back pain, seizure, CVA, palpatations, mental health, musculoskeletal)? @ -[Differential Dyspnea: Coronary syndrome, arrhythmia, tamponade, asthma, COPD, pulmonary embolism, pneumonia, pneumothorax, pulmonary effusion, anaphylaxis, diabetic ketoacidosis, flailed chest, pulmonary contusion, diaphragmatic rupture, anemia, neuromuscular, this is not meant to be an all-inclusive list. EKG interpreted by me (3pts min.). @ -[I interpreted as above] X-rays interpreted by me (1pt min.). @ -[I interpreted as above CT interpreted by me (1pt min.). @ -[None done] U/S interpreted by me (1pt. min.). @ -[None done] What testing was considered but not performed or refused? (CT, X-rays, U/S, labs)? Why? @ -[None] What meds were considered but not given or refused? Why? @ -[None] Did you discuss the management of the patient with other professionals (professionals i.e. , PA, OCCUPATIONAL THERAPIST ASSIST[employer], lab, RT, psych nurse, social service assistant, burnisher and bumper, teacher, technology officer, corrections caseworker)? Give summary @ -[No] Was smoking cessation discussed for >3mins.? @ -[No] Was critical care preformed (if so, how long)? @ -[No] Were there social determinants of health that impacted care today? How? (Homelessness, low income, unemployed, alcoholism, drug addiction, transportation, low edu. Level, literacy, decrease access to med. care, retirement, rehab)? @ -[No] Was there de-escalation of care discussed even if they declined (Discuss DNR or withdrawal of care, Hospice)? DNR status @ -[No] What co-morbidities impacted this encounter? (DM, HTN, Smoking, COPD, CAD, Cancer, CVA, ARF, Chemo, Hep., AIDS, mental health diagnosis, sleep apnea, morbid obesity)? @ -[History of atrial fibrillation. Congestive heart failure Was patient admitted / discharged? Hospital course, mention meds given and r oute, prescriptions, significant lab abnormalities, going to OR and other pertinent info. @ -[Patient is an 87-year-old woman with dyspnea on the exam and workup consistent with exacerbation of congestive heart failure. I did offer admission but at this point the patient prefers to try outpatient therapy. We discussed appropriate further care and follow-up as well as return parameters. Undiagnosed new problem with uncertain prognosis? @ -[No] Drug Therapy requiring intensive monitoring for toxicity (Heparin, Nitro, Insulin, Cardizem)? @ -[No] Were any procedures done? @ -[No] Diagnosis/symptom? @ -[Acute exacerbation of congestive heart failure Acute, or Chronic, or Acute on Chronic? @ -[Acute on chronic Uncomplicated (without systemic symptoms) or Complicated (systemic symptoms)? @ -[default] Side effects of treatment? @ -[No] Exacerbation, Progression, or Severe Exacerbation? @ -[Exacerbation Poses a threat to life or bodily function? How? (Chest pain, [place], [place], pneumonia, PE, COPD, DKA, ARF, appy, cholecystitis, CVA, Diverticulitis, Homicidal, Suicidal, threat to staff... and all critical care pts) @ -[Yes there is risk of worsening congestive heart failure progressing to respiratory failure - Lab Data Result diagrams: 06/26/23 23:45 06/26/23 23:45 Lab Results 06/26/23 06/26/23 06/26/23 Range/Units 23:31 23:45 23:45 WBC 12.4 H (3.8-10.6) k/uL RBC 4.38 (3.80-5.40) m/uL Hgb 13.8 (11.4-16.0) gm/dL Hct 44.1 (34.0-46.0) % MCV 100.8 H (80.0-100.0) fL MCH 31.6 (25.0-35.0) pg MCHC 31.3 (31.0-37.0) g/dL RDW 20.8 H (11.5-15.5) % Plt Count 156 (150-450) k/uL MPV 13.1 Neutrophils % 78 % Lymphocytes % 14 % Monocytes % 5 % Eosinophils % 1 % Basophils % 1 % Neutrophils # 9.7 H (1.3-7.7) k/uL Lymphocytes # 1.7 (1.0-4.8) k/uL Monocytes # 0.7 (0-1.0) k/uL Eosinophils # 0.1 (0-0.7) k/uL Basophils # 0.1 (0-0.2) k/uL Hypochromasia Slight Anisocytosis Moderate Macrocytosis Moderate PT 14.3 H (10.0-12.5) sec INR 1.4 H (<1.2) APTT 24.7 (22.0-30.0) sec D-Dimer 0.57 (<0.60) mg/L FEU Sodium (137-145) mmol/L Potassium (3.5-5.1) mmol/L Chloride (98-107) mmol/L Carbon Dioxide (22-30) mmol/L Anion Gap mmol/L BUN (7-17) mg/dL Creatinine (0.52-1.04) mg/dL Est GFR (CKD-EPI)AfAm (>60 ml/min/1.73 sqM) Est GFR (CKD-EPI)NonAf (>60 ml/min/1.73 sqM) Glucose (74-99) mg/dL Plasma Lactic Acid Gualberto (0.7-2.0) mmol/L Calcium (8.4-10.2) mg/dL Total Bilirubin (0.2-1.3) mg/dL AST (14-36) U/L ALT (4-34) U/L Alkaline Phosphatase (38-126) U/L Troponin I (0.000-0.034) ng/mL NT-Pro-B Natriuret Pep pg/mL Total Protein (6.3-8.2) g/dL Albumin (3.5-5.0) g/dL Influenza Type A (PCR) Not Detected (Not Detectd) Influenza Type B (PCR) Not Detected (Not Detectd) RSV (PCR) Not Detected (Not Detectd) SARS-CoV-2 (PCR) Not Detected (Not Detectd) 06/26/23 06/26/23 06/26/23 Range/Units 23:45 23:45 23:45 WBC (3.8-10.6) k/uL RBC (3.80-5.40) m/uL Hgb (11.4-16.0) gm/dL Hct (34.0-46.0) % MCV (80.0-100.0) fL MCH (25.0-35.0) pg MCHC (31.0-37.0) g/dL RDW (11.5-15.5) % Plt Count (150-450) k/uL MPV Neutrophils % % Lymphocytes % % Monocytes % % Eosinophils % % Basophils % % Neutrophils # (1.3-7.7) k/uL Lymphocytes # (1.0-4.8) k/uL Monocytes # (0-1.0) k/uL Eosinophils # (0-0.7) k/uL Basophils # (0-0.2) k/uL Hypochromasia Anisocytosis Macrocytosis PT (10.0-12.5) sec INR (<1.2) APTT (22.0-30.0) sec D-Dimer (<0.60) mg/L FEU Sodium 136 L (137-145) mmol/L Potassium 5.1 (3.5-5.1) mmol/L Chloride 100 (98-107) mmol/L Carbon Dioxide 24 (22-30) mmol/L Anion Gap 12 mmol/L BUN 29 H (7-17) mg/dL Creatinine 0.88 (0.52-1.04) mg/dL Est GFR (CKD-EPI)AfAm 69 (>60 ml/min/1.73 sqM) Est GFR (CKD-EPI)NonAf 60 (>60 ml/min/1.73 sqM) Glucose 123 H (74-99) mg/dL Plasma Lactic Acid Gualberto 1.9 (0.7-2.0) mmol/L Calcium 9.3 (8.4-10.2) mg/dL Total Bilirubin 4.3 H (0.2-1.3) mg/dL AST 120 H (14-36) U/L ALT 99 H (4-34) U/L Alkaline Phosphatase 95 (38-126) U/L Troponin I <0.012 (0.000-0.034) ng/mL NT-Pro-B Natriuret Pep 2490 pg/mL Total Protein 7.5 (6.3-8.2) g/dL Albumin 4.9 (3.5-5.0) g/dL Influenza Type A (PCR) (Not Detectd) Influenza Type B (PCR) (Not Detectd) RSV (PCR) (Not Detectd) SARS-CoV-2 (PCR) (Not Detectd) Disposition Clinical Impression: CHF (congestive heart failure) Disposition: HOME SELF-CARE Condition: Good Instructions (If sedation given, give patient instructions): Heart Failure (DC) Is patient prescribed a controlled substance at d/c from ED?: No Referrals: Esau Wiley MD [Primary Care Provider] - 1-2 days
[2023-06-27 00:17] LABS: Anisocytosis Moderate; Basophils # (A) 0.1 k/uL (0-0.2); Basophils % (A) 1 %; Eosinophils # (A) 0.1 k/uL (0-0.7); Eosinophils % (A) 1 %; HCT 44.1 % (34.0-46.0); HGB 13.8 gm/dL (11.4-16.0); Hypochromasia Slight; Lymphocytes # (A) 1.7 k/uL (1.0-4.8); Lymphocytes % (A) 14 %; MCH 31.6 pg (25.0-35.0); MCHC 31.3 g/dL (31.0-37.0); MCV 100.8 fL (80.0-100.0); Macrocytosis Moderate; Mean Platelet Volume 13.1; Monocytes # (A) 0.7 k/uL (0-1.0); Monocytes % (A) 5 %; Neutrophils # (A) 9.7 k/uL (1.3-7.7); Neutrophils % (A) 78 %; Platelet Count 156 k/uL (150-450); RBC 4.38 m/uL (3.80-5.40); RDW 20.8 % (11.5-15.5); WBC 12.4 k/uL (3.8-10.6)
--- NOTE | 2023-06-27 00:18 | XR ---
EXAM: XR Chest, 2 Views CLINICAL HISTORY: ITS.REASON XR Reason: difficulty breathing TECHNIQUE: Frontal and lateral views of the chest. COMPARISON: 06/05/2023 FINDINGS: Lungs: Basilar airspace opacities/atelectasis. Pleural space: Small pleural effusion on the left. Heart: Unremarkable. No cardiomegaly. Bones/joints: Unremarkable. No fracture or malalignment. IMPRESSION: 1. Basilar airspace opacities/atelectasis. 2. Small pleural effusion on the left.
[2023-06-27 00:21] LABS: INR 1.4 (<1.2); Partial Thromboplastin Time 24.7 sec (22.0-30.0); Prothrombin Time 14.3 sec (10.0-12.5)
[2023-06-27 00:33] LABS: ALT 99 U/L (4-34); African American GFR (CKD) 69 (>60 ml/min/1.73 sqM); Anion Gap 12 mmol/L; Blood Urea Nitrogen 29 mg/dL (7-17); Calcium 9.3 mg/dL (8.4-10.2); Carbon Dioxide 24 mmol/L (22-30); Chloride 100 mmol/L (98-107); Glucose 123 mg/dL (74-99); Non-African American GFR(CKD) 60 (>60 ml/min/1.73 sqM); Sodium 136 mmol/L (137-145); Total Bilirubin 4.3 mg/dL (0.2-1.3)
[2023-06-27 00:37] LABS: AST 120 U/L (14-36); Albumin 4.9 g/dL (3.5-5.0); Alkaline Phosphatase 95 U/L (38-126); Potassium 5.1 mmol/L (3.5-5.1); Total Protein 7.5 g/dL (6.3-8.2)
[2023-06-27 00:40] LABS: NT-Pro-B-Type Natriuretic Pept 2490 pg/mL
[2023-06-27] MEDS: FUROSEMIDE 10 MG/ML 4 ML VIAL IV STA (01:53)
[2023-06-27 03:21] VITALS: BP 119/91; PULSE 81; TEMP 97.2
== END 2023-06-27 03:10 | disposition home or self-care (01) ==
LOC: EC 22:33
DX: R06.02 Shortness of breath (principal); I50.9 Heart failure, unspecified; I48.91 Unspecified atrial fibrillation; Z88.5 Allergy status to narcotic agent; Z88.2 Allergy status to sulfonamides
CPT/HCPCS: 96374 ×2; 99285 ×2; 36415; 93005; 85379; 83880; 80053; 83605; 84484; 85025; 85610; 85730; 87636; 71046; J1940

== ENCOUNTER 2023-07-03 09:57 | Inpatient (IN) | payer MEDICARE, BC ==
--- NOTE | 2023-07-03 10:58 | ED ---
General Adult HPI - General Chief complaint: Weakness Stated complaint: weakness Time Seen by Provider: 07/03/23 09:59 Source: patient, EMS Mode of arrival: EMS - History of Present Illness Initial comments: Dictation was produced using [employer] dictation software. please excuse any g rammatical, word or spelling errors. Chief Complaint: 87-year-old female with past medical history of A-fib presents to the emergency department for fall worsening weakness History of Present Illness: Patient is 87-year-old female who presents to the emergency department with family. She has her granddaughter along with [id number] at the bedside. HPI provided by family at the bedside. States that over the last month she has been having significantly worsening weakness to the point where she is falling unable to care for self. Family is not able to care for the patient. She lives at home. Allegedly she had fallen multiple times. Patient has no pain complaints. Patient does take anticoagulation medications. The ROS documented in this emergency department record has been reviewed and confirmed by me. Those systems with pertinent positive or negative responses have been documented in the HPI. All other systems are other negative and/or noncontributory. - Related Data Home Medications Medication Instructions Recorded Confirmed Flecainide Acetate [Tambocor] 100 mg PO Q12H 07/03/23 07/03/23 Furosemide [Lasix] 20 mg PO DAILY@1400 07/03/23 07/03/23 Furosemide [Lasix] 40 mg PO DAILY 07/03/23 07/03/23 Metoprolol Tartrate [Lopressor] 100 mg PO Q12H 07/03/23 07/03/23 Potassium Chloride [Klor-Con M10] 10 meq PO DAILY 07/03/23 07/03/23 Previous Rx's Medication Instructions Recorded Apixaban [Eliquis] 5 mg PO BID #60 tab 06/08/23 Famotidine [Pepcid] 20 mg PO DAILY #30 tab 06/08/23 Allergies Allergy/AdvReac Type Severity Reaction Status Date / Time Sulfa (Sulfonamide Allergy Rash/Hives Verified 07/03/23 11:06 Antibiotics) codeine AdvReac Nausea Verified 07/03/23 11:06 hydrocodone [From Vicodin] AdvReac Nausea Verified 07/03/23 11:06 Review of Systems ROS Statement: Those systems with pertinent positive or pertinent negative responses have been documented in the HPI. ROS Other: All systems not noted in ROS Statement are negative. Past Medical History Past Medical History: Atrial Fibrillation Additional Past Medical History / Comment(s): torn meniscus left knee,varicose veins History of Any Multi-Drug Resistant Organisms: None Reported Past Surgical History: Cholecystectomy, Hysterectomy, Joint Replacement Additional Past Surgical History / Comment(s): right and left hip replacement, bunionectomy Past Anesthesia/Blood Transfusion Reactions: No Reported Reaction Past Psychological History: No Psychological Hx Reported Smoking Status: Never smoker Past Alcohol Use History: None Reported Past Drug Use History: None Reported - Past Family History Mother Family Medical History: No Reported History Sister(s) Family Medical History: Cancer Additional Family Medical History / Comment(s): breast,liver,stomach,MS General Exam - General Exam Comments Initial Comments: PHYSICAL EXAM: General Impression: Alert and oriented x3, not in acute distress HEENT: Normocephalic atraumatic, extra-ocular movements intact, pupils equal and reactive to light bilaterally, mucous membranes moist. Cardiovascular: Heart regular rate and rhythm Chest: Able to complete full sentences, no retractions, no tachypnea Abdomen: abdomen soft, non-tender, non-distended, no organomegaly Musculoskeletal: Pulses present and equal in all extremities, no peripheral edema Motor: no focal deficits noted Neurological: CN II-XII grossly intact, no focal motor or sensory deficits noted Skin: Intact with no visualized rashes Psych: Normal affect and mood Course Vital Signs 07/03/23 07/03/23 07/03/23 09:58 11:51 14:43 Temperature 97.6 F Pulse Rate 70 69 73 Respiratory 18 18 18 Rate Blood Pressure 120/79 111/71 115/75 O2 Sat by Pulse 97 94 L 99 Oximetry EKG Findings - EKG Comments: EKG Findings:: My EKG interpretation: Ventricular rate 71, A-fib, QRS 133, QTc 470. No AL prolongation, no QTC prolongation, no ST or T-wave changes noted. EKG compared to June 26, 2023 showing no changes. Overall, this EKG is unremarkable Medical Decision Making - Medical Decision Making Was pt. sent in by a medical professional or institution (, PA, ENGRAVER [employer]ATWARE, urgent care, hospital, or correction...) When possible be specific @ -No Did you speak to anyone other than the patient for history (EMS, parent, family, police, friend...)? What history was obtained from this source @ -See above Did you review nursing and triage notes (agree or disagree)? Why? @ -I reviewed and agree with nursing and triage notes Were old charts reviewed (outside hosp., previous admission, EMS record, old EKG, old radiological studies, urgent care reports/EKG's, correction records)? Report findings @ -No old charts were reviewed Differential Diagnosis (chest pain, altered mental status, abdominal pain women, abdominal pain men, vaginal bleeding, musculoskeletal, weakness, fever, dyspnea, syncope, headache, dizziness, GI bleed, back pain, seizure, CVA, palpatations, mental health)? @ -Differential Weakness: Hypoglycemia, shock, sepsis, hyponatremia, anemia, infection, AL, ETOH, adverse medicine reaction, overdose, stroke, this is not meant to be an all-inclusive list. EKG interpreted by me (3pts min.). @ -See above X-rays interpreted by me (1pt min.). @ -Chest x-ray shows heart failure CT interpreted by me (1pt min.). @ -None done U/S interpreted by me (1pt. min.). @ -None done What testing was considered but not performed or refused? (CT, X-rays, U/S, labs)? Why? @ -None What meds were considered but not given or refused? Why? @ -None Did you discuss the management of the patient with other professionals (professionals i.e. , PA, ENGRAVER [employer], lab, RT, psych nurse, social service coordinator, blue line trimmer, teacher, liaison officer, showcase trimmer)? Give summary @ -Case discussed with hospitalist for admission. Was smoking cessation discussed for >3mins.? @ -No Was critical care preformed (if so, how long)? @ -No Were there social determinants of health that impacted care today? How? (Homelessness, low income, unemployed, alcoholism, drug addiction, transportation, low edu. Level, literacy, decrease access to med. care, intermediate, rehab)? @ -No Was there de-escalation of care discussed even if they declined (Discuss DNR or withdrawal of care, Hospice)? DNR status @ -No What co-morbidities impacted this encounter? (DM, HTN, Smoking, COPD, CAD, Cancer, CVA, ARF, Chemo, Hep., AIDS, mental health diagnosis, sleep apnea, morbid obesity)? @ -None Was patient admitted / discharged? Hospital course, mention meds given and route, prescriptions, significant lab abnormalities, going to OR and other pertinent info. @ -87-year-old female presents emergency department for generalized weakness. Apparently family is having difficulty caring for this patient at home. Patient has no specific complaints. Vital signs upon arrival are within acceptable limits. Laboratory evaluation shows leukocytosis 17.1. Sodium 119. Potassium 5.8, bicarb of 18, elevated renal markers, lactic acidosis 3.0. Elevated liver enzymes. BNP of 6800. Troponin 1.023. Urinalysis negative. Viral testing negative. Chest x-ray shows findings consistent with heart failure. Patient will be admitted with consultation to cardiology, nephrology. Undiagnosed new problem with uncertain prognosis? @ -No Drug Therapy requiring intensive monitoring for toxicity (Heparin, Nitro, Insulin, Cardizem)? @ -No Were any procedures done? @ -No Diagnosis/symptom? Acute, or Chronic, or Acute on Chronic? Uncomplicated (without systemic symptoms) or Complicated (systemic symptoms)? @ -Hyponatremia Side effects of treatment? @ -No Exacerbation, Progression, or Severe Exacerbation? @ -No Poses a threat to life or bodily function? How? (Chest pain, USA, AL, pneumonia, PE, COPD, DKA, ARF, appy, cholecystitis, CVA, Diverticulitis, Homicidal, Suicidal, threat to staff... and all critical care pts) @ -yes - Lab Data Result diagrams: 07/03/23 10:39 07/03/23 10:39 Lab Results 07/03/23 07/03/23 07/03/23 Range/Units 10:16 10:39 10:39 WBC 17.1 H (3.8-10.6) k/uL RBC 4.27 (3.80-5.40) m/uL Hgb 13.7 (11.4-16.0) gm/dL Hct 42.3 (34.0-46.0) % MCV 98.9 (80.0-100.0) fL MCH 32.1 (25.0-35.0) pg MCHC 32.4 (31.0-37.0) g/dL RDW 21.6 H (11.5-15.5) % Plt Count 171 (150-450) k/uL MPV 13.9 Neutrophils % (Manual) 84 % Lymphocytes % (Manual) 10 % Monocytes % (Manual) 7 % Neutrophils # (Manual) 14.36 H (1.3-7.7) k/uL Lymphocytes # (Manual) 1.71 (1.0-4.8) k/uL Monocytes # (Manual) 1.20 H (0-1.0) k/uL Nucleated RBCs 6 H (0-0) /100 WBC Manual Slide Review Performed Large Platelets Present Polychromasia Present Anisocytosis Moderate Macrocytosis Moderate [place] Bodies Present Sodium 119 L* (137-145) mmol/L Potassium 5.8 H (3.5-5.1) mmol/L Chloride 86 L (98-107) mmol/L Carbon Dioxide 18 L (22-30) mmol/L Anion Gap 15 mmol/L BUN 52 H (7-17) mg/dL Creatinine 1.66 H (0.52-1.04) mg/dL Est GFR (CKD-EPI)AfAm 32 (>60 ml/min/1.73 sqM) Est GFR (CKD-EPI)NonAf 28 (>60 ml/min/1.73 sqM) Glucose 123 H (74-99) mg/dL Lactic Ac Sepsis Rflx Plasma Lactic Acid Gualberto (0.7-2.0) mmol/L Calcium 8.8 (8.4-10.2) mg/dL Magnesium 2.0 (1.6-2.3) mg/dL Total Bilirubin 6.0 H (0.2-1.3) mg/dL Conjugated Bilirubin 1.0 H (0.0-0.3) mg/dL Unconjugated Bilirubin 4.2 H (0.0-1.1) mg/dL Delta Bilirubin 0.8 H (0.0-0.2) mg/dL AST 1133 H (14-36) U/L ALT 868 H (4-34) U/L Alkaline Phosphatase 244 H (38-126) U/L Ammonia (<30) umol/L Troponin I (0.000-0.034) ng/mL NT-Pro-B Natriuret Pep 6800 pg/mL Total Protein 7.0 (6.3-8.2) g/dL Albumin 4.4 (3.5-5.0) g/dL Urine Color Urine Appearance (Clear) Urine pH (5.0-8.0) Ur Specific [place] (1.001-1.035) Urine Protein (Negative) Urine Glucose (UA) (Negative) Urine Ketones (Negative) Urine Blood (Negative) Urine Nitrite (Negative) Urine Bilirubin (Negative) Urine Urobilinogen (<2.0) mg/dL Ur Leukocyte Esterase (Negative) Urine RBC (0-5) /hpf Urine WBC (0-5) /hpf Ur Squamous Epith Cells (0-4) /hpf Urine Bacteria (None) /hpf Hyaline Casts (0-2) /lpf Urine Mucus (None) /hpf Influenza Type A (PCR) (Not Detectd) Influenza Type B (PCR) (Not Detectd) RSV (PCR) (Not Detectd) SARS-CoV-2 (PCR) (Not Detectd) 07/03/23 07/03/23 07/03/23 Range/Units 10:39 10:39 11:21 WBC (3.8-10.6) k/uL RBC (3.80-5.40) m/uL Hgb (11.4-16.0) gm/dL Hct (34.0-46.0) % MCV (80.0-100.0) fL MCH (25.0-35.0) pg MCHC (31.0-37.0) g/dL RDW (11.5-15.5) % Plt Count (150-450) k/uL MPV Neutrophils % (Manual) % Lymphocytes % (Manual) % Monocytes % (Manual) % Neutrophils # (Manual) (1.3-7.7) k/uL Lymphocytes # (Manual) (1.0-4.8) k/uL Monocytes # (Manual) (0-1.0) k/uL Nucleated RBCs (0-0) /100 WBC Manual Slide Review Large Platelets Polychromasia Anisocytosis Macrocytosis [place] Bodies Sodium (137-145) mmol/L Potassium (3.5-5.1) mmol/L Chloride (98-107) mmol/L Carbon Dioxide (22-30) mmol/L Anion Gap mmol/L BUN (7-17) mg/dL Creatinine (0.52-1.04) mg/dL Est GFR (CKD-EPI)AfAm (>60 ml/min/1.73 sqM) Est GFR (CKD-EPI)NonAf (>60 ml/min/1.73 sqM) Glucose (74-99) mg/dL Lactic Ac Sepsis Rflx Plasma Lactic Acid G[place]berto 3.0 H* (0.7-2.0) mmol/L Calcium (8.4-10.2) mg/dL Magnesium (1.6-2.3) mg/dL Total Bilirubin (0.2-1.3) mg/dL Conjugated Bilirubin (0.0-0.3) mg/dL Unconjugated Bilirubin (0.0-1.1) mg/dL Delta Bilirubin (0.0-0.2) mg/dL AST (14-36) U/L ALT (4-34) U/L Alkaline Phosphatase (38-126) U/L Ammonia (<30) umol/L Troponin I 0.023 (0.000-0.034) ng/mL NT-Pro-B Natriuret Pep pg/mL Total Protein (6.3-8.2) g/dL Albumin (3.5-5.0) g/dL Urine Color Urine Appearance (Clear) Urine pH (5.0-8.0) Ur Specific [place] (1.001-1.035) Urine Protein (Negative) Urine Glucose (UA) (Negative) Urine Ketones (Negative) Urine Blood (Negative) Urine Nitrite (Negative) Urine Bilirubin (Negative) Urine Urobilinogen (<2.0) mg/dL Ur Leukocyte Esterase (Negative) Urine RBC (0-5) /hpf Urine WBC (0-5) /hpf Ur Squamous Epith Cells (0-4) /hpf Urine Bacteria (None) /hpf Hyaline Casts (0-2) /lpf Urine Mucus (None) /hpf Influenza Type A (PCR) Not Detected (Not Detectd) Influenza Type B (PCR) Not Detected (Not Detectd) RSV (PCR) Not Detected (Not Detectd) SARS-CoV-2 (PCR) Not Detected (Not Detectd) 07/03/23 07/03/23 07/03/23 Range/Units 11:34 11:47 11:47 WBC (3.8-10.6) k/uL RBC (3.80-5.40) m/uL Hgb (11.4-16.0) gm/dL Hct (34.0-46.0) % MCV (80.0-100.0) fL MCH (25.0-35.0) pg MCHC (31.0-37.0) g/dL RDW (11.5-15.5) % Plt Count (150-450) k/uL MPV Neutrophils % (Manual) % Lymphocytes % (Manual) % Monocytes % (Manual) % Neutrophils # (Manual) (1.3-7.7) k/uL Lymphocytes # (Manual) (1.0-4.8) k/uL Monocytes # (Manual) (0-1.0) k/uL Nucleated RBCs (0-0) /100 WBC Manual Slide Review Large Platelets Polychromasia Anisocytosis Macrocytosis [place] Bodies Sodium (137-145) mmol/L Potassium (3.5-5.1) mmol/L Chloride (98-107) mmol/L Carbon Dioxide (22-30) mmol/L Anion Gap mmol/L BUN (7-17) mg/dL Creatinine (0.52-1.04) mg/dL Est GFR (CKD-EPI)AfAm (>60 ml/min/1.73 sqM) Est GFR (CKD-EPI)NonAf (>60 ml/min/1.73 sqM) Glucose (74-99) mg/dL Lactic Ac Sepsis Rflx Y Plasma Lactic Acid [place] (0.7-2.0) mmol/L Calcium (8.4-10.2) mg/dL Magnesium (1.6-2.3) mg/dL Total Bilirubin (0.2-1.3) mg/dL Conjugated Bilirubin (0.0-0.3) mg/dL Unconjugated Bilirubin (0.0-1.1) mg/dL Delta Bilirubin (0.0-0.2) mg/dL AST (14-36) U/L ALT (4-34) U/L Alkaline Phosphatase (38-126) U/L Ammonia <9 (<30) umol/L Troponin I (0.000-0.034) ng/mL NT-Pro-B Natriuret Pep pg/mL Total Protein (6.3-8.2) g/dL Albumin (3.5-5.0) g/dL Urine Color Yellow Urine Appearance Cloudy H (Clear) Urine pH 5.5 (5.0-8.0) Ur Specific [place] 1.016 (1.001-1.035) Urine Protein 2+ H (Negative) Urine Glucose (UA) Negative (Negative) Urine Ketones Negative (Negative) Urine Blood Negative (Negative) Urine Nitrite Negative (Negative) Urine Bilirubin Negative (Negative) Urine Urobilinogen 3.0 (<2.0) mg/dL Ur Leukocyte Esterase Negative (Negative) Urine RBC 3 (0-5) /hpf Urine WBC 5 (0-5) /hpf Ur Squamous Epith Cells 1 (0-4) /hpf Urine Bacteria Rare H (None) /hpf Hyaline Casts 17 H (0-2) /lpf Urine Mucus Rare H (None) /hpf Influenza Type A (PCR) (Not Detectd) Influenza Type B (PCR) (Not Detectd) RSV (PCR) (Not Detectd) SARS-CoV-2 (PCR) (Not Detectd) Disposition Clinical Impression: Hyponatremia Disposition: ADMITTED IP TO THIS HOSP Condition: Fair Decision Time: 13:57
--- NOTE | 2023-07-03 11:02 | XR ---
EXAMINATION TYPE: XR chest 2V DATE OF EXAM: 07/03/2023 10:58 AM CLINICAL INDICATION:Female, 87 years old with history of weakness; COMPARISON: Chest radiographs from 06/26/2023. TECHNIQUE: XR chest 2V Frontal and lateral views of the chest. FINDINGS: Lungs/Pleura: No evidence of focal consolidation or pneumothorax. Blunting of the costophrenic angles is present. Pulmonary vascularity: Pulmonary vascular congestion. Heart/mediastinum: Cardiomediastinal silhouette is enlarged and stable. Musculoskeletal: No acute osseous pathology. IMPRESSION: Cardiomegaly, pulmonary vascular congestion and bilateral pleural effusions. Correlate with BNP for c ongestive heart failure.
[2023-07-03 11:08] LABS: Anisocytosis Moderate; HCT 42.3 % (34.0-46.0); HGB 13.7 gm/dL (11.4-16.0); MCH 32.1 pg (25.0-35.0); MCHC 32.4 g/dL (31.0-37.0); MCV 98.9 fL (80.0-100.0); Macrocytosis Moderate; Mean Platelet Volume 13.9; Platelet Count 171 k/uL (150-450); RBC 4.27 m/uL (3.80-5.40); RDW 21.6 % (11.5-15.5)
[2023-07-03 11:18] LABS: African American GFR (CKD) 32 (>60 ml/min/1.73 sqM); Albumin 4.4 g/dL (3.5-5.0); Alkaline Phosphatase 244 U/L (38-126); Anion Gap 15 mmol/L; Blood Urea Nitrogen 52 mg/dL (7-17); Calcium 8.8 mg/dL (8.4-10.2); Carbon Dioxide 18 mmol/L (22-30); Chloride 86 mmol/L (98-107); Glucose 123 mg/dL (74-99); Non-African American GFR(CKD) 28 (>60 ml/min/1.73 sqM); Potassium 5.8 mmol/L (3.5-5.1)
[2023-07-03 11:32] LABS: ALT 868 U/L (4-34); AST 1133 U/L (14-36); Sodium 119 mmol/L (137-145)
[2023-07-03] MEDS: ONDANSETRON 4 MG/2 ML VIAL IVP STA (11:51)
[2023-07-03 12:16] LABS: Neutrophils % (M) 84 %; Nucleated Red Blood Cells 6 /100 WBC (0-0); Total Cells Counted 200
[2023-07-03 12:17] LABS: Lymphocytes # (M) 1.71 k/uL (1.0-4.8); Neutrophils # (M) 14.36 k/uL (1.3-7.7); WBC 17.1 k/uL (3.8-10.6)
[2023-07-03 12:19] LABS: Appearance,Urine Cloudy (Clear); Bacteria,Urine Rare /hpf; Bilirubin,Urine Negative (Negative); Blood,Urine Negative (Negative); Color,Urine Yellow; Glucose,Urine (UA) Negative (Negative); Hyaline Casts,Urine 17 /lpf (0-2); Ketones,Urine Negative (Negative); Leukocyte Esterase,Urine Negative (Negative); Mucus,Urine Rare /hpf; Nitrite,Urine Negative (Negative); PH, Urine 5.5 (5.0-8.0); Protein,Urine 2+ (Negative); RBC,Urine 3 /hpf (0-5); Specific Gravity,Urine 1.016 (1.001-1.035); Squamous Epithelial Cell,Urine 1 /hpf (0-4); WBC,Urine 5 /hpf (0-5)
[2023-07-03 12:21] LABS: Large Platelets Present; Polychromasia Present
[2023-07-03 12:24] LABS: Howell-Jolly Bodies Present
[2023-07-03] MEDS: SODIUM CHLORIDE 0.9% 500 ML 500 ML IV STA (12:42)
[2023-07-03 12:55] LABS: Bilirubin, Delta 0.8 mg/dL (0.0-0.2); Bilirubin,Unconjugated 4.2 mg/dL (0.0-1.1)
[2023-07-03] MEDS ORDERED: NALOXONE 0.4 MG/ML 1 ML VIAL IV PRN (13:54)
[2023-07-03] MEDS: SODIUM CHLORIDE 0.9% 1,000 ML IV SCH (14:39)
--- NOTE | 2023-07-03 15:45 | P.CNPUL ---
History of Present Illness Consult date: 07/03/23 Requesting physician: Kayden Orellana Reason for consult: other (Possible ICU admission) Chief complaint: Generalized weakness History of present illness: This is an 87-year-old female patient with a known history of osteoporosis, osteoarthritis, hyperlipidemia, hypertension and was recently hospitalized last month for new onset A-fib with RVR and congestive heart failure. She had been on Lasix for the past couple of weeks at 40 in the morning and 20 in the evening. She is anticoagulated with Eliquis. She presented back to the emergency room earlier today with progressive weakness and falling and unable to care for herself. Chest x-ray reveals cardiomegaly with pulmonary vascular co ngestion and bilateral pleural effusions. White count 17.1. Hemoglobin 13.7. Platelets 171. Sodium 119. Potassium 5.8. BUN 52. Creatinine 1.66. Glucose 123. AST 1133. ALT 868 viral screen negative. She is seen in consultation in the emergency department. She was being considered for possible ICU admission. She is currently sitting up on the stretcher. Awake and alert in no acute dist ress. She is somewhat slow to respond. Her family is at the bedside. She is maintaining good O2 saturations in the upper 90s on room air. She is afebrile. Hemodynamically stable. She received 500 cc of normal saline fluid bolus. She has normal saline at 50 MLS per hour. EKG reveals atrial fibrillation with a controlled ventricular response. Review of Systems REVIEW OF SYSTEMS: CONSTITUTIONAL: Positive for generalized weakness, falls. Denies any recent significant weight loss or weight gain. EYES: Denies change in vision. EARS, NOSE, MOUTH, THROAT: Denies headaches, denies sore throat. CARDIOVASCULAR: Denies chest pain, palpitations or syncopal episodes. RESPIRATORY: Denies shortness of breath, cough, congestion or hemoptysis. GASTROINTESTINAL: Denies change in appetite, denies abdominal pain GENITOURINARY: Denies hematuria, denies infections. MUSKULOSKELETAL: Denies pain, denies swelling. INTEGUMENTARY: Denies rash, denies eczema. NEUROLOGICAL: Denies recent memory loss, no recent seizure activity. PSYCHIATRIC: Denies anxiety, denies depression. HEMATOLOGIC/LYMPHATIC: Denies anemia, denies enlarged lymph nodes. Past Medical History Past Medical History: Atrial Fibrillation Additional Past Medical History / Comment(s): torn meniscus left knee,varicose veins History of Any Multi-Drug Resistant Organisms: None Reported Past Surgical History: Cholecystectomy, Hysterectomy, Joint Replacement Additional Past Surgical History / Comment(s): right and left hip replacement, bunionectomy Past Anesthesia/Blood Transfusion Reactions: No Reported Reaction Past Psychological History: No Psychological Hx Reported Smoking Status: Never smoker Past Alcohol Use History: None Reported Past Drug Use History: None Reported - Past Family History Mother Family Medical History: No Reported History Sister(s) Family Medical History: Cancer Additional Family Medical History / Comment(s): breast,liver,stomach,MS Medications and Allergies Home Medications Medication Instructions Recorded Confirmed Type Apixaban [Eliquis] 5 mg PO BID #60 tab 06/08/23 07/03/23 Rx Famotidine [Pepcid] 20 mg PO DAILY #30 tab 06/08/23 07/03/23 Rx Flecainide Acetate [Tambocor] 100 mg PO Q12H 07/03/23 07/03/23 History Furosemide [Lasix] 20 mg PO DAILY@1400 07/03/23 07/03/23 History Furosemide [Lasix] 40 mg PO DAILY 07/03/23 07/03/23 History Metoprolol Tartrate [Lopressor] 100 mg PO Q12H 07/03/23 07/03/23 History Potassium Chloride [Klor-Con M10] 10 meq PO DAILY 07/03/23 07/03/23 History Allergies Allergy/AdvReac Type Severity Reaction Status Date / Time Sulfa (Sulfonamide Allergy Rash/Hives Verified 07/03/23 11:06 Antibiotics) codeine AdvReac Nausea Verified 07/03/23 11:06 hydrocodone [From Vicodin] AdvReac Nausea Verified 07/03/23 11:06 Physical Exam Vitals: Vital Signs Temp Pulse Resp BP Pulse Ox 07/03/23 14:43 73 18 115/75 99 07/03/23 11:51 69 18 111/71 94 L 07/03/23 09:58 97.6 F 70 18 120/79 97 Intake and Output 07/03/23 07/03/23 07/03/23 06:59 14:59 22:59 Other: Weight 80.4 kg GENERAL EXAM: Alert, weak, 87-year-old female, on room air, comfortable in no apparent distress. HEAD: Normocephalic. EYES: Normal reaction of pupils, equal size. NOSE: Clear with pink turbinates. THROAT: No erythema or exudates. NECK: No masses, no JVD. CHEST: No chest wall deformity. LUNGS: Equal air entry with crackles in the posterior base. CVS: S1 and S2 normal with no audible murmur, irregular rhythm. ABDOMEN: No hepatosplenomegaly, normal bowel sounds, no guarding or rigidity. SPINE: No scoliosis or deformity SKIN: No rashes CENTRAL NERVOUS SYSTEM: No focal deficits, tone is normal in all 4 extremities. EXTREMITIES: There is 1+ peripheral edema. No clubbing, no cyanosis. Peripheral pulses are intact. Results - Laboratory Findings CBC and BMP: 07/03/23 10:39 07/03/23 10:39 Abnormal lab findings: Abnormal Labs 07/03/23 07/03/23 07/03/23 10:39 10:39 10:39 WBC 17.1 H RDW 21.6 H Neutrophils # (Manual) 14.36 H Monocytes # (Manual) 1.20 H Nucleated RBCs 6 H Sodium 119 L* Potassium 5.8 H Chloride 86 L Carbon Dioxide 18 L BUN 52 H Creatinine 1.66 H Glucose 123 H Plasma Lactic Acid Gualberto 3.0 H* Total Bilirubin 6.0 H Conjugated Bilirubin 1.0 H Unconjugated Bilirubin 4.2 H Delta Bilirubin 0.8 H AST 1133 H ALT 868 H Alkaline Phosphatase 244 H Urine Appearance Urine Protein Urine Bacteria Hyaline Casts Urine Mucus 07/03/23 07/03/23 11:47 14:23 WBC RDW Neutrophils # (Manual) Monocytes # (Manual) Nucleated RBCs Sodium Potassium Chloride Carbon Dioxide BUN Creatinine Glucose Plasma Lactic Acid G[place]berto 3.6 H* Total Bilirubin Conjugated Bilirubin Unconjugated Bilirubin Delta Bilirubin AST ALT Alkaline Phosphatase Urine Appearance Cloudy H Urine Protein 2+ H Urine Bacteria Rare H Hyaline Casts 17 H Urine Mucus Rare H - Diagnostic Findings Chest x-ray: image reviewed Assessment and Plan Assessment: Generalized weakness with falls secondary to hyponatremia and dehydration Acute kidney injury secondary to dehydration and poor oral intake, recently on diuretics Hyperkalemia secondary to above Hyponatremia secondary to above Transaminitis Leukocytosis Recent admission for atrial fibrillation with rapid ventricular response cu rrently in a controlled rate, anticoagulated with Eliquis History of diastolic congestive heart failure History of osteoarthritis Plan: The patient was seen and evaluated Chest x-ray, labs and medications reviewed Currently stable and on room air Decrease normal saline to KVO Nephrology consult No plans for ICU unless 3% saline is needed DNR CODE STATUS We will continue to follow and make further recommendations based on her clinical status I have personally seen and examined the patient, performed the documentation and the assessment and plan as written. Number of minutes spent on the visit: 20.
--- NOTE | 2023-07-03 16:41 | US ---
EXAMINATION TYPE: US abdomen limited DATE OF EXAM: 07/03/2023 COMPARISON: 06/06/2023 CLINICAL INDICATION: Female, 87 years old with history of elevated liver enzymes; elevated liver enzy mes. TECHNIQUE: Multiple sonographic images of the right upper quadrant are obtained. FINDINGS: EXAM MEASUREMENTS: Liver Length: 15.3 cm Gallbladder Wall: Surgically absent CBD: .5 cm Right Kidney: 8.7 x 4.4 x 5.2 cm SERVICE COORDINATOR NOTES: Pancreas: Obscured by bowel gas Liver: Increased attenuation Gallbladder: Surgically absent Evidence for sonographic Langford's sign: no CBD: wnl Right Kidney: No hydronephrosis or masses seen IMPRESSION: 1. No evidence for acute process. 2. Hepatic steatosis.
[2023-07-03 17:02] LABS: African American GFR (CKD) 33 (>60 ml/min/1.73 sqM); Anion Gap 13 mmol/L; Blood Urea Nitrogen 52 mg/dL (7-17); Calcium 8.6 mg/dL (8.4-10.2); Carbon Dioxide 15 mmol/L (22-30); Chloride 92 mmol/L (98-107); Glucose 86 mg/dL (74-99); Non-African American GFR(CKD) 29 (>60 ml/min/1.73 sqM); Sodium 120 mmol/L (137-145)
[2023-07-03] MEDS: SODIUM ZIRCONIUM CYCLOSILICATE 10 GM PACKET PO ONE (18:46)
[2023-07-03] MEDS: FUROSEMIDE 10 MG/ML 4 ML VIAL IV STA (19:44)
[2023-07-03] MEDS: DEXTROSE 50% SYRINGE 50 ML IVP STA ×2 (19:46→19:50)
[2023-07-03] MEDS: INSULIN REGULAR 100 UNIT/ML VIAL (IV) IV ONE (19:54)
[2023-07-03] MEDS: CALCIUM GLUCONATE IN NACL 1 GM in SALINE 1 100ML.BAG IVPB ONE (19:59)
[2023-07-03 20:55] LABS: Glucose,Whole Blood 101 mg/dL (70-110)
[2023-07-03 21:03] LABS: African American GFR (CKD) 30 (>60 ml/min/1.73 sqM); Anion Gap 10 mmol/L; Blood Urea Nitrogen 54 mg/dL (7-17); Calcium 8.5 mg/dL (8.4-10.2); Carbon Dioxide 21 mmol/L (22-30); Chloride 89 mmol/L (98-107); Glucose 130 mg/dL (74-99); Non-African American GFR(CKD) 26 (>60 ml/min/1.73 sqM); Potassium 5.2 mmol/L (3.5-5.1); Sodium 120 mmol/L (137-145)
[2023-07-03] MEDS: APIXABAN 2.5 MG TABLET PO SCH (21:10)
[2023-07-03] MEDS: FLECAINIDE 50 MG TAB PO SCH (21:10)
[2023-07-03] MEDS: METOPROLOL TARTRATE 50 MG TAB PO SCH (21:10)
[2023-07-04 01:01] LABS: African American GFR (CKD) 36 (>60 ml/min/1.73 sqM); Albumin 3.2 g/dL (3.5-5.0); Alkaline Phosphatase 199 U/L (38-126); Anion Gap 9 mmol/L; Blood Urea Nitrogen 54 mg/dL (7-17); Calcium 8.4 mg/dL (8.4-10.2); Carbon Dioxide 20 mmol/L (22-30); Chloride 93 mmol/L (98-107); Glucose 72 mg/dL (74-99); Non-African American GFR(CKD) 31 (>60 ml/min/1.73 sqM); Potassium 4.7 mmol/L (3.5-5.1); Sodium 122 mmol/L (137-145); Total Bilirubin 5.3 mg/dL (0.2-1.3); Total Protein 5.4 g/dL (6.3-8.2)
[2023-07-04 01:57] LABS: AST 1168 U/L (14-36)
[2023-07-04 01:58] LABS: ALT 939 U/L (4-34)
--- NOTE | 2023-07-04 06:11 | P.HPIM ---
History of Present Illness H&P Date: 07/03/23 HISTORY OF PRESENT ILLNESS: 87-year-old office patient with active medical history of A-fib, hypertension, hyperlipidemia, osteoporosis who was diagnosed with new onset of A-fib with RVR caused significant diastolic congestive heart failure with fluid overload was hospitalized in June 04 for 3 days for A-fib with RVR was quite symptomatic. She mated to the emergency department after her discharge 1 time she seen cardiology and scheduled elective cardioversion on 07/04/2023. Patient currently to have significant sign and symptom of mild worsening shortness of breath dyspnea fluid overload with significant PND orthopnea palpitation ended up seeing in our office and seen cardiology and the plan again to keep that date for cardioversion for tomorrow. She ended up in the emergency department today 07/03/2023 because of severe Symptom consistent with generalized weakness fatigue tiredness lightheadedness with slight altered mental status her finding in the emergency department with EKG showing A-fib with pulse control in the 70s and 80s. Chest x-ray showed cardiomegaly with pulmonary vascular congestion and bilateral pleural effusion correlate with congestive heart failure. Surprisingly laboratory value shows acute kidney injury with creatinine at 1.59 BUN 52 potassium was 6.1 and original sodium was 119 patient was diagnosed with severe hyponatremia and hyperkalemia with leukocytosis and transaminitis with AST 1153 ALT 868 alk phos 244 with normal ammonia level conjugated bilirubin 1.0 with unconjugated bilirubin at 4.2. BNP was 6800 troponin was normal lactic acid was 2.8. Patient be admitted to the hospital for the severity of her hyponatremia at this point with significant abnormality with her lab value and also to be seen cardiology her cardioversion probably will be delayed at this point, there is an evidence space for acute kidney injury from her diuretics and probably transaminitis from the severity of her heart failure and as a pump failure with hypoperfusion. REVIEW OF SYSTEMS: CONSTITUTIONAL: Elderly does not look in any respiratory distress. EYES: No icterus sclerae, no conjunctivitis. EARS, NOSE, MOUTH, THROAT, and FACE: No sore throat, lymphadenopathy, carotid bruits or deformity. RESPIRATORY: Positive shortness of breath cough wheezes. CARDIOVASCULAR: Positive PND orthopnea palpitation no angina. GASTROINTESTINAL: No Abd pain, Nausea or vomiting, no Diarrhea or constipation, No GI Bleed, no distention or masses. GENITOURINARY: Negative for Hematuria or UTI, no kidney stones. INTEGUMENT/BREAST: Negative for any muscular injury with mild osteoarthritis.. HEMATOLOGIC/LYMPHATIC: Negative for bleed or purpura. MUSCULOSKELTAL: Generalized muscle and joint pain. NEURLOGICAL: No LOC, Sz or syncope, blurred vision dizziness or abnormality.. BEHAVIORAL/PSYCH: Negative. ENDOCRINE: Negative. PHYSICAL EXAMINATION: General Appearance: Alert, cooperative, no distress, appears stated age. Neck HEENT: Supple, no lymphadenopathy, no thyroid enlargement, no carotid bruits. Lungs: Decreased breath sound bilaterally with fine rhonchi positive mild c rackles in the bases spasmodics breath or wheezes. Chest Wall: Decreased expansion with deep inspiration especially in the right base, no tenderness and no deformity was found on exam, no costochondral pain or discomfort. There is a slight jaundice color on the surface part of the chest wall area. Heart: Irregular rate and rhythm, S1, S2 positive S3, positive jugular vein distention, positive systolic murmur with tachycardia of 140 bpm. Back: Symmetric, no curvature, ROM normal, no CVA tenderness. Abdomen: Soft, non-tender, bowel sounds active all four quadrants, no masses, significant hepatomegaly. Extremities: Extremities normal, atraumatic, no cyanosis or edema. Pulses: 2+ and symmetric. Skin: Jaundice with normal texture otherwise. Neurologic: Alert oriented x3 cranial nerves II through XII intact, no motor deficit, no abnormal balance or gait. ASSESSMENT AND PLAN: _Severe hyponatremia: Most likely the effect of the diuretics and SIADH: She will be seen nephrology continue to watch her fluid intake and urine output for now carefully repeat sodium in the next 24 hours fluid restriction will be done and also slow down on her diuretics. _Acute kidney injury with most likely acute tubular necrosis with the severity of her diuretics and current management with hypoperfusion, ultrasound will be done nephrology consultation patient will do gentle hydration and recheck her kidney function next 24 hours. _Hyperkalemia: With the severity of her acute kidney injury patient will have smaller dose of Lokelma 5 mg one-time. _Acute transaminitis: Not a clear etiology she is on the same last time hepatitis panel was done and negative ultrasound will be done this time continue to watch liver enzyme will consult gastroenterology. _Acute diastolic congestive heart failure: With BNP is quite elevated consistent with symptoms most likely from A-fib with RVR with valvular heart disease, patient seen cardiology was supposed to go for cardioversion. _New onset of A-fib with rapid ventricular response had responded quite bit lately to the current antiarrhythmic she is on including flecainide and metoprolol still on anticoagulation. _Significant fluid overload with congestive heart failure with mild A-fib cardiomyopathy, continue again with diuretics to watch kidney function carefully. _Leukocytosis: Not a clear etiology there is no sign of infection at this point this might be reactive more than infection but with the elevated lactic acid to watch closely for any other infection including Urinary tract infection her urine at this point still clear and upper respiratory culture including COVID influenza and RSV are negative. _Hypertension: Has been on metoprolol resume medication. Will benefit from a smaller dose of ARB. _Anticoagulation: Has been on Eliquis and patient seems to tolerate it very well. _Mild altered mental status: Most likely from the severity of her hyponatremia treat underlying disease hopefully mentation will go back to normal. _Hyperlipidemia: Was supposed to be on smaller dose of atorvastatin. _GI prophylaxis: Patient be on Pepcid 20 mg daily. _DVT prophylaxis: Patient is on anticoagulation at this point. CODE STATUS: DO NOT RESUSCITATE. Admit patient to the inpatient service for more than 2 night stay. Past Medical History Past Medical History: Atrial Fibrillation Additional Past Medical History / Comment(s): torn meniscus left knee,varicose veins History of Any Multi-Drug Resistant Organisms: None Reported Past Surgical History: Cholecystectomy, Hysterectomy, Joint Replacement Additional Past Surgical History / Comment(s): right and left hip replacement, bunionectomy Past Anesthesia/Blood Transfusion Reactions: No Reported Reaction Past Psychological History: No Psychological Hx Reported Smoking Status: Never smoker Past Alcohol Use History: None Reported Past Drug Use History: None Reported - Past Family History Mother Family Medical History: No Reported History Sister(s) Family Medical History: Cancer Additional Family Medical History / Comment(s): breast,liver,stomach,MS Medications and Allergies Home Medications Medication Instructions Recorded Confirmed Type Apixaban [Eliquis] 5 mg PO BID #60 tab 06/08/23 07/03/23 Rx Famotidine [Pepcid] 20 mg PO DAILY #30 tab 06/08/23 07/03/23 Rx Flecainide Acetate [Tambocor] 100 mg PO Q12H 07/03/23 07/03/23 History Furosemide [Lasix] 20 mg PO DAILY@1400 07/03/23 07/03/23 History Furosemide [Lasix] 40 mg PO DAILY 07/03/23 07/03/23 History Metoprolol Tartrate [Lopressor] 100 mg PO Q12H 07/03/23 07/03/23 History Potassium Chloride [Klor-Con M10] 10 meq PO DAILY 07/03/23 07/03/23 History Allergies Allergy/AdvReac Type Severity Reaction Status Date / Time Sulfa (Sulfonamide Allergy Rash/Hives Verified 07/03/23 11:06 Antibiotics) codeine AdvReac Nausea Verified 07/03/23 11:06 hydrocodone [From Vicodin] AdvReac Nausea Verified 07/03/23 11:06 Physical Exam Vitals: Vital Signs Temp Pulse Resp BP Pulse Ox 07/03/23 17:00 78 18 116/70 97 07/03/23 14:43 73 18 115/75 99 07/03/23 11:51 69 18 111/71 94 L 07/03/23 09:58 97.6 F 70 18 120/79 97 Intake and Output 07/03/23 07/03/23 07/03/23 06:59 14:59 22:59 Other: Weight 80.4 kg Results CBC & Chem 7: 07/03/23 10:39 07/03/23 17:28 Labs: Abnormal Lab Results - Last 24 Hours (Table) 07/03/23 07/03/23 07/03/23 Range/Units 10:39 10:39 10:39 WBC 17.1 H (3.8-10.6) k/uL RDW 21.6 H (11.5-15.5) % Neutrophils # (Manual) 14.36 H (1.3-7.7) k/uL Monocytes # (Manual) 1.20 H (0-1.0) k/uL Nucleated RBCs 6 H (0-0) /100 WBC Sodium 119 L* (137-145) mmol/L Potassium 5.8 H (3.5-5.1) mmol/L Chloride 86 L (98-107) mmol/L Carbon Dioxide 18 L (22-30) mmol/L BUN 52 H (7-17) mg/dL Creatinine 1.66 H (0.52-1.04) mg/dL Glucose 123 H (74-99) mg/dL Plasma Lactic Acid Gualberto 3.0 H* (0.7-2.0) mmol/L Total Bilirubin 6.0 H (0.2-1.3) mg/dL Conjugated Bilirubin 1.0 H (0.0-0.3) mg/dL Unconjugated Bilirubin 4.2 H (0.0-1.1) mg/dL Delta Bilirubin 0.8 H (0.0-0.2) mg/dL AST 1133 H (14-36) U/L ALT 868 H (4-34) U/L Alkaline Phosphatase 244 H (38-126) U/L Urine Appearance (Clear) Urine Protein (Negative) Urine Bacteria (None) /hpf Hyaline Casts (0-2) /lpf Urine Mucus (None) /hpf 07/03/23 07/03/23 07/03/23 Range/Units 11:47 14:23 16:34 WBC (3.8-10.6) k/uL RDW (11.5-15.5) % Neutrophils # (Manual) (1.3-7.7) k/uL Monocytes # (Manual) (0-1.0) k/uL Nucleated RBCs (0-0) /100 WBC Sodium 120 L (137-145) mmol/L Potassium 7.0 H* (3.5-5.1) mmol/L Chloride 92 L (98-107) mmol/L Carbon Dioxide 15 L (22-30) mmol/L BUN 52 H (7-17) mg/dL Creatinine 1.59 H (0.52-1.04) mg/dL Glucose (74-99) mg/dL Plasma Lactic Acid Gualberto 3.6 H* (0.7-2.0) mmol/L Total Bilirubin (0.2-1.3) mg/dL Conjugated Bilirubin (0.0-0.3) mg/dL Unconjugated Bilirubin (0.0-1.1) mg/dL Delta Bilirubin (0.0-0.2) mg/dL AST (14-36) U/L ALT (4-34) U/L Alkaline Phosphatase (38-126) U/L Urine Appearance Cloudy H (Clear) Urine Protein 2+ H (Negative) Urine Bacteria Rare H (None) /hpf Hyaline Casts 17 H (0-2) /lpf Urine Mucus Rare H (None) /hpf 07/03/23 07/03/23 Range/Units 17:28 17:39 WBC (3.8-10.6) k/uL RDW (11.5-15.5) % Neutrophils # (Manual) (1.3-7.7) k/uL Monocytes # (Manual) (0-1.0) k/uL Nucleated RBCs (0-0) /100 WBC Sodium (137-145) mmol/L Potassium 6.1 H* (3.5-5.1) mmol/L Chloride (98-107) mmol/L Carbon Dioxide (22-30) mmol/L BUN (7-17) mg/dL Creatinine (0.52-1.04) mg/dL Glucose (74-99) mg/dL Plasma Lactic Acid Gualberto 2.8 H* (0.7-2.0) mmol/L Total Bilirubin (0.2-1.3) mg/dL Conjugated Bilirubin (0.0-0.3) mg/dL Unconjugated Bilirubin (0.0-1.1) mg/dL Delta Bilirubin (0.0-0.2) mg/dL AST (14-36) U/L ALT (4-34) U/L Alkaline Phosphatase (38-126) U/L Urine Appearance (Clear) Urine Protein (Negative) Urine Bacteria (None) /hpf Hyaline Casts (0-2) /lpf Urine Mucus (None) /hpf
[2023-07-04] MEDS: FAMOTIDINE 20 MG TAB PO SCH (08:52)
[2023-07-04] MEDS ORDERED: FUROSEMIDE 40 MG TAB PO SCH (09:00)
[2023-07-04 10:33] LABS: Anisocytosis Moderate; HGB 12.7 gm/dL (11.4-16.0); Hypochromasia Slight; MCH 32.4 pg (25.0-35.0); MCHC 31.7 g/dL (31.0-37.0); MCV 102.1 fL (80.0-100.0); Macrocytosis Marked; Mean Platelet Volume 12.1; RBC 3.91 m/uL (3.80-5.40); RDW 21.6 % (11.5-15.5); WBC 15.1 k/uL (3.8-10.6)
[2023-07-04 10:56] LABS: African American GFR (CKD) 40 (>60 ml/min/1.73 sqM); Albumin 3.3 g/dL (3.5-5.0); Alkaline Phosphatase 198 U/L (38-126); Anion Gap 5 mmol/L; Blood Urea Nitrogen 51 mg/dL (7-17); Calcium 8.6 mg/dL (8.4-10.2); Carbon Dioxide 26 mmol/L (22-30); Chloride 94 mmol/L (98-107); Glucose 112 mg/dL (74-99); Non-African American GFR(CKD) 35 (>60 ml/min/1.73 sqM); Potassium 4.5 mmol/L (3.5-5.1); Sodium 125 mmol/L (137-145); Total Bilirubin 5.5 mg/dL (0.2-1.3); Total Protein 5.7 g/dL (6.3-8.2)
[2023-07-04 11:06] LABS: ALT 892 U/L (4-34); AST 824 U/L (14-36)
--- NOTE | 2023-07-04 11:11 | P.NPCON ---
History of Present Illness - Reason for Consult acute renal failure, hyponatremia - History of Present Illness Reason for consultation: Acute kidney injury and hyponatremia History of present illness: Patient is 87-year-old female seen in renal consultation for acute kidney injury and hyponatremia. Patient's baseline creatinine is near 1 and was elevated at 1.66 this admission. It is 1.5 this morning. Sodium was also low at 119 and is 122 this morning. Patient currently has a Hdez catheter and is nonoliguric. Patient initially received a fluid bolus and then received IV Lasix last night. Patient has history of diastolic CHF and moderate mitral and tricuspid regurgitation from echocardiogram done in May 2023. Chest x-ray adjusted for vascular congestion. Patient came to the hospital due to generalized weakness. Patient states she also sustained a fall as her legs gave out. She denies losing consciousness or hitting her head. Patient denies history of kidney disease. No vomiting or diarrhea. She was nauseous but now better. Oral intake has been poor in the last few days. Denies excessive fluid intake. Patient states that urine output has also been less than usual prior to admission. I do not see any NSAIDs on her home medication list. She was taking Lasix but no thiazide diuretics. Vital signs are stable. General: No acute distress. HEENT: Head exam is unremarkable. On nasal cannula. LUNGS: No audible rhonchi or wheezes. HEART: Rate and Rhythm are regular. ABDOMEN: Nontender. EXTREMITITES: Trace edema. Past Medical History Past Medical History: Atrial Fibrillation Additional Past Medical History / Comment(s): torn meniscus left knee,varicose veins History of Any Multi-Drug Resistant Organisms: None Reported Past Surgical History: Cholecystectomy, Hysterectomy, Joint Replacement Additional Past Surgical History / Comment(s): right and left hip replacement, bunionectomy Past Anesthesia/Blood Transfusion Reactions: No Reported Reaction Past Psychological History: No Psychological Hx Reported Smoking Status: Never smoker Past Alcohol Use History: None Reported Past Drug Use History: None Reported - Past Family History Mother Family Medical History: No Reported History Sister(s) Family Medical History: Cancer Additional Family Medical History / Comment(s): breast,liver,stomach,MS Medications and Allergies Home Medications Medication Instructions Recorded Confirmed Type Apixaban [Eliquis] 5 mg PO BID #60 tab 06/08/23 07/03/23 Rx Famotidine [Pepcid] 20 mg PO DAILY #30 tab 06/08/23 07/03/23 Rx Flecainide Acetate [Tambocor] 100 mg PO Q12H 07/03/23 07/03/23 History Furosemide [Lasix] 20 mg PO DAILY@1400 07/03/23 07/03/23 History Furosemide [Lasix] 40 mg PO DAILY 07/03/23 07/03/23 History Metoprolol Tartrate [Lopressor] 100 mg PO Q12H 07/03/23 07/03/23 History Potassium Chloride [Klor-Con M10] 10 meq PO DAILY 07/03/23 07/03/23 History Allergies Allergy/AdvReac Type Severity Reaction Status Date / Time Sulfa (Sulfonamide Allergy Rash/Hives Verified 07/03/23 11:06 Antibiotics) codeine AdvReac Nausea Verified 07/03/23 11:06 hydrocodone [From Vicodin] AdvReac Nausea Verified 07/03/23 11:06 Physical Exam Vitals: Vital Signs Temp Pulse Pulse Resp BP BP Pulse Ox 07/04/23 09:53 96 07/04/23 08:50 98 F 79 17 131/94 98 07/04/23 03:19 97.6 F 82 14 112/74 96 07/03/23 23:10 97.5 F L 79 14 112/71 97 07/03/23 21:00 84 18 131/78 98 07/03/23 19:43 80 18 113/79 98 07/03/23 18:49 77 18 96 07/03/23 17:00 78 18 116/70 97 07/03/23 14:43 73 18 115/75 99 07/03/23 11:51 69 18 111/71 94 L Intake and Output 07/03/23 07/04/23 07/04/23 22:59 06:59 14:59 Intake Total 240 236 Output Total 1000 750 Balance -760 -514 Intake: Oral 240 236 Output: Urine 1000 750 Other: Voiding Method Indwelling Catheter Indwelling Catheter Weight 80.4 kg Results - Lab Results Most recent lab results Calcium 8.4 mg/dL (8.4-10.2) 07/04/23 00:36 Magnesium 2.0 mg/dL (1.6-2.3) 07/03/23 16:34 07/03/23 10:39 07/04/23 00:36 Assessment and Plan Plan: Assessment: 1. Acute kidney injury secondary to ATN secondary to cardiorenal syndrome. Cr eatinine peaked at 1.73 this admission and is 1.5 today. Baseline creatinine near 1. 2. Acute on chronic diastolic CHF with moderate mitral and tricuspid regurgitation. 3. Fluid overload. 4. Hypervolemic hyponatremia. Urine sodium less than 20 and urine osmolality 425. 5. Hyperkalemia secondary to acute kidney injury, metabolic acidosis, as well as potassium supplementation. Improved with medical management. 6. Metabolic acidosis secondary to acute kidney injury. Plan: Add IV Lasix 40 mg once daily. Maintain Hdez catheter for now. Check renal ultrasound. Check TSH. Encourage oral intake, particularly protein. Maintain 1200 cc fluid restriction. Repeat sodium level this afternoon. Thank you for the consultation. I will continue to follow the patient with you during her hospital stay.
[2023-07-04] MEDS: FUROSEMIDE 10 MG/ML 4 ML VIAL IV SCH (11:57)
[2023-07-04 12:09] LABS: Platelet Count 131 k/uL (150-450)
--- NOTE | 2023-07-04 13:54 | P.CRDCN ---
History of Present Illness Consult date: 07/04/23 Consult reason: congestive heart failure History of present illness: History of present illness: This is an 87-year-old female patient of Dr. Marcelino with past medical history of atrial fibrillation, mitral regurgitation, hypertension, dyslipidemia. We have been asked to evaluate the patient for CHF. Patient states that she had a fall where she was trying to get out of a chair and fell backwards into the chair. There was no loss of consciousness. She states she has not been feeling well for a while. She had been sleeping in her chair all night. She denies having any chest pain or chest pressure. She states she has not been eating or drinking very much. She denies nausea and no abdominal pain. She did have some edema which is decreased. She has had a Hdez catheter placed. Shortness of breath is improved. Patient has been started on IV Lasix 40 mg daily by nephrology. Discussed that it seems atrial fibrillation seems to be exacerbating all of her other symptoms. Option of cardioversion was discussed with the patient and she is agreeable to move forward. EKG atrial fibrillation at a ventricular rate of 71 bpm Chest x-ray: Cardiomegaly, pulmonary vascular congestion and bilateral pleural effusion WBC 15, hemoglobin 12.7, platelet count 131. Sodium 135, potassium 4.5, chloride 94, CO2 26, BUN 51 creatinine 1.37. Liver function tests are elevated. Magnesium 2.0. TSH 0.771. Home cardiac medications: Eliquis 5 mg twice daily, flecainide 100 mg every 12 hours, Lasix 40 mg daily and 20 mg at 2 PM, Lopressor 100 mg every 12 hours, potassium chloride 10 mill equivalents daily Echocardiogram performed 06/05/2023 reveals EF of 50% - 55% moderate mitral regurgitation. Mild aortic regurgitation. Moderate tricuspid regurgitation. Mild pulmonary hypertension. Review Of Systems: At the time of my exam: CONSTITUTIONAL: Denies fever or chills. HEENT: Denies blurred vision, vision changes, or eye pain. Denies hemoptysis CARDIOVASCULAR: Denies chest pain. Denies orthopnea. Denies PND. Denies palpitations RESPIRATORY: Denies shortness of breath. Reports dyspnea on exertion GASTROINTESTINAL: Denies abdominal pain. Denies nausea or vomiting. HEMATOLOGIC: Denies bleeding disorders. GENITOURINARY: Denies any blood in urine. SKIN: Denies pruitis. Denies rash. Physical examination: Gen: This is an 87-year-old female in no acute distress appears to be unwell. VS: reviewed, blood pressure 131/94, heart rate 79, pulse ox 90% on 2 L nasal cannula. HEENT: Head is atraumatic, normocephalic. Pupils equal, round. Sclerae is anicteric. NECK: Supple. No JVD. LUNGS: Diminished breath sounds. No intercostal retractions. HEART: Irregular rate and rhythm. No murmur. ABDOMEN: Soft No tenderness. EXTREMITIES: Minimal pedal edema. No calf tenderness. NEUROLOGICAL: Patient is awake, alert and oriented x3. Assessment: Acute kidney injury Hyperkalemia Hyponatremia Metabolic acidosis Elevated liver function test Persistent atrial fibrillation Acute diastolic heart failure Mitral regurgitation Hypertension Dyslipidemia Plan: Resume patient's home cardiac medications Continue patient on IV Lasix 40 mg daily Monitor GRICELDA, daily weights, electrolytes and renal function Continue telemetry monitoring Schedule patient for electrocardioversion this afternoon No need to repeat echocardiogram as this was done in May Further recommendations to follow based upon clinical course Thank you kindly for this consultation. Nurse practitioner note has been reviewed, I agree with documented findings and plan of care. Patient was seen and examined. Past Medical History Past Medical History: Atrial Fibrillation Additional Past Medical History / Comment(s): torn meniscus left knee,varicose veins History of Any Multi-Drug Resistant Organisms: None Reported Past Surgical History: Cholecystectomy, Hysterectomy, Joint Replacement Additional Past Surgical History / Comment(s): right and left hip replacement, bunionectomy Past Anesthesia/Blood Transfusion Reactions: No Reported Reaction Past Psychological History: No Psychological Hx Reported Smoking Status: Never smoker Past Alcohol Use History: None Reported Past Drug Use History: None Reported - Past Family History Mother Family Medical History: No Reported History Sister(s) Family Medical History: Cancer Additional Family Medical History / Comment(s): breast,liver,stomach,MS Medications and Allergies Home Medications Medication Instructions Recorded Confirmed Type Apixaban [Eliquis] 5 mg PO BID #60 tab 06/08/23 07/03/23 Rx Famotidine [Pepcid] 20 mg PO DAILY #30 tab 06/08/23 07/03/23 Rx Flecainide Acetate [Tambocor] 100 mg PO Q12H 07/03/23 07/03/23 History Furosemide [Lasix] 20 mg PO DAILY@1400 07/03/23 07/03/23 History Furosemide [Lasix] 40 mg PO DAILY 07/03/23 07/03/23 History Metoprolol Tartrate [Lopressor] 100 mg PO Q12H 07/03/23 07/03/23 History Potassium Chloride [Klor-Con M10] 10 meq PO DAILY 07/03/23 07/03/23 History Allergies Allergy/AdvReac Type Severity Reaction Status Date / Time Sulfa (Sulfonamide Allergy Rash/Hives Verified 07/03/23 11:06 Antibiotics) codeine AdvReac Nausea Verified 07/03/23 11:06 hydrocodone [From Vicodin] AdvReac Nausea Verified 07/03/23 11:06 Physical Exam Vitals: Vital Signs Temp Pulse Pulse Resp BP BP Pulse Ox 07/04/23 09:53 96 07/04/23 08:50 98 F 79 17 131/94 98 07/04/23 03:19 97.6 F 82 14 112/74 96 07/03/23 23:10 97.5 F L 79 14 112/71 97 07/03/23 21:00 84 18 131/78 98 07/03/23 19:43 80 18 113/79 98 07/03/23 18:49 77 18 96 07/03/23 17:00 78 18 116/70 97 07/03/23 14:43 73 18 115/75 99 07/03/23 11:51 69 18 111/71 94 L Intake and Output 07/03/23 07/04/23 07/04/23 22:59 06:59 14:59 Intake Total 240 236 Output Total 1000 750 Balance -760 -514 Intake: Oral 240 236 Output: Urine 1000 750 Other: Voiding Method Indwelling Catheter Indwelling Catheter Weight 80.4 kg Results 07/04/23 10:10 07/04/23 10:10 Cardiac Enzymes 07/03/23 07/03/23 07/04/23 Range/Units 10:39 10:39 00:36 AST 1133 H 1168 H (14-36) U/L Troponin I 0.023 (0.000-0.034) ng/mL 07/04/23 Range/Units 10:10 AST 824 H (14-36) U/L Troponin I (0.000-0.034) ng/mL CBC 07/03/23 Range/Units 10:39 WBC 17.1 H (3.8-10.6) k/uL Comprehensive Metabolic Panel 07/03/23 07/03/23 07/03/23 Range/Units 10:39 16:34 17:28 Sodium 119 L* 120 L (137-145) mmol/L Potassium 5.8 H 7.0 H* 6.1 H* (3.5-5.1) mmol/L Chloride 86 L 92 L (98-107) mmol/L Carbon Dioxide 18 L 15 L (22-30) mmol/L BUN 52 H 52 H (7-17) mg/dL Creatinine 1.66 H 1.59 H (0.52-1.04) mg/dL Glucose 123 H 86 (74-99) mg/dL Calcium 8.8 8.6 (8.4-10.2) mg/dL Unconjugated Bilirubin 4.2 H (0.0-1.1) mg/dL AST 1133 H (14-36) U/L ALT 868 H (4-34) U/L Alkaline Phosphatase 244 H (38-126) U/L Total Protein 7.0 (6.3-8.2) g/dL Albumin 4.4 (3.5-5.0) g/dL 07/03/23 07/04/23 07/04/23 Range/Units 20:30 00:36 10:10 Sodium 120 L 122 L 125 L (137-145) mmol/L Potassium 5.2 H 4.7 4.5 (3.5-5.1) mmol/L Chloride 89 L 93 L 94 L (98-107) mmol/L Carbon Dioxide 21 L 20 L 26 (22-30) mmol/L BUN 54 H 54 H 51 H (7-17) mg/dL Creatinine 1.73 H 1.50 H 1.37 H (0.52-1.04) mg/dL Glucose 130 H 72 L 112 H (74-99) mg/dL Calcium 8.5 8.4 8.6 (8.4-10.2) mg/dL Unconjugated Bilirubin (0.0-1.1) mg/dL AST 1168 H 824 H (14-36) U/L ALT 939 H 892 H (4-34) U/L Alkaline Phosphatase 199 H 198 H (38-126) U/L Total Protein 5.4 L 5.7 L (6.3-8.2) g/dL Albumin 3.2 L 3.3 L (3.5-5.0) g/dL Current Medications Generic Name Dose Route Start Last Admin Trade Name Freq PRN Reason Stop Dose Admin Apixaban 2.5 mg 07/03/23 21:00 07/04/23 08:52 Apixaban 2.5 Mg Tablet PO 2.5 mg BID VIDHYA Administration Protocol Famotidine 20 mg 07/04/23 09:00 07/04/23 08:52 Famotidine 20 Mg Tab PO 20 mg DAILY VIDHYA Administration Flecainide Acetate 100 mg 07/03/23 21:00 07/04/23 08:52 Flecainide 50 Mg Tab PO 100 mg Q12H VIDHYA Administration Furosemide 40 mg 07/04/23 11:30 Furosemide 10 Mg/Ml 4 Ml Vial IV DAILY VIDHYA Sodium Chloride 1,000 mls @ 10 mls/hr 07/03/23 14:00 07/03/23 14:39 Saline 0.9% IV 50 mls/hr .Q24H VIDHYA Administration Metoprolol Tartrate 100 mg 07/03/23 21:00 07/04/23 08:52 Metoprolol Tartrate 50 Mg Tab PO 100 mg Q12H VIDHYA Administration Naloxone HCl 0.2 mg 07/03/23 13:54 Naloxone 0.4 Mg/Ml 1 Ml Vial IV Q2M PRN Opioid Reversal Intake and Output 07/03/23 07/04/23 07/04/23 22:59 06:59 14:59 Intake Total 240 236 Output Total 1000 750 Balance -760 -514 Intake: Oral 240 236 Output: Urine 1000 750 Other: Voiding Method Indwelling Catheter Indwelling Catheter Weight 80.4 kg 07/03/23 10:39 07/04/23 10:10
--- NOTE | 2023-07-04 14:02 | P.PN ---
Subjective Progress Note Date: 07/04/23 Principal diagnosis: Severe hyponatremia and acute on chronic diastolic congestive heart failure This is an 87-year-old female patient with a known history of osteoporosis, osteoarthritis, hyperlipidemia, hypertension and was recently hospitalized last month for new onset A-fib with RVR and congestive heart failure. She had been on Lasix for the past couple of weeks at 40 in the morning and 20 in the evening. She is anticoagulated with Eliquis. She presented back to the emergency room earlier today with progressive weakness and falling and unable to care for herself. Chest x-ray reveals cardiomegaly with pulmonary vascular congestion and bilateral pleural effusions. White count 17.1. Hemoglobin 13.7. Platelets 171. Sodium 119. Potassium 5.8. BUN 52. Creatinine 1.66. Glucose 123. AST 1133. ALT 868 viral screen negative. She is seen in consultation in the emergency department. She was being considered for possible ICU admission. She is currently sitting up on the stretcher. Awake and alert in no acute distress. She is somewhat slow to respond. Her family is at the bedside. She is maintaining good O2 saturations in the upper 90s on room air. She is afebrile. Hemodynamically stable. She received 500 cc of normal saline fluid bolus. She has normal saline at 50 MLS per hour. EKG reveals atrial fibrillation with a controlled ventricular response. Patient was reevaluated today on 07/03/2023, patient is looking much better today, remains on nasal cannula, but not in distress, patient was admitted with severe hyponatremia and a picture of acute on chronic diastolic congestive heart failure she was also noted to have acute kidney injury known to have history of severe mitral regurgitation and chronic diastolic congestive heart failure. Patient has been on diuretics recently for her congestive heart failure. Patient was seen by nephrology and she is getting diuresed, at the same time recommending fluid restriction down to 1200 cc/day sodium today is up to 125, patient came in with a sodium of 119, liver enzymes today are improving renal profile is improving initial creatinine was 1.73, today it is 1.37 patient did receive fluids on her initial presentation in the ER. Form of 0.9 normal saline chest x-ray continues to show evidence of bilateral pleural effusions left more so than right Objective - Vital Signs Vital signs: Vital Signs Temp 98 F 07/04/23 08:50 Pulse 79 07/04/23 08:50 Resp 17 07/04/23 08:50 BP 131/94 07/04/23 08:50 Pulse Ox 96 07/04/23 09:53 FiO2 Intake & Output 07/03/23 07/04/23 07/04/23 18:59 06:59 18:59 Intake Total 240 236 Output Total 1000 750 Balance -760 -514 Weight 80.4 kg 80.4 kg Intake: Oral 240 236 Output: Urine 1000 750 Other: Voiding Method Indwelling Catheter Indwelling Catheter - Exam General: Revealed 87-year-old female in no distress, on 2 L nasal cannula O2 saturation 96% HEAD: Normocephalic. EYES: Normal reaction of pupils, equal size. NOSE: Clear with pink turbinates. THROAT: No erythema or exudates. NECK: No masses, no JVD. CHEST: No chest wall deformity. LUNGS: Diminished breath sounds at the bases specially at the left base CVS: S1 and S2 normal with no audible murmur, irregular rhythm. ABDOMEN: No hepatosplenomegaly, normal bowel sounds, no guarding or rigidity. SKIN: No rashes CENTRAL NERVOUS SYSTEM: Alert and oriented x 3 no gross focal deficit EXTREMITIES: Trace of bipedal edema no cyanosis - Labs CBC & Chem 7: 07/04/23 10:10 07/04/23 10:10 Labs: Abnormal Lab Results - Last 24 Hours (Table) 07/03/23 07/03/23 07/03/23 Range/Units 14:23 15:20 16:34 WBC (3.8-10.6) k/uL MCV (80.0-100.0) fL RDW (11.5-15.5) % Plt Count (150-450) k/uL Macrocytosis Sodium 120 L (137-145) mmol/L Potassium 7.0 H* (3.5-5.1) mmol/L Chloride 92 L (98-107) mmol/L Carbon Dioxide 15 L (22-30) mmol/L BUN 52 H (7-17) mg/dL Creatinine 1.59 H (0.52-1.04) mg/dL Glucose (74-99) mg/dL Osmolality 270 L (275-295) mOsm/kg Plasma Lactic Acid Gualberto 3.6 H* (0.7-2.0) mmol/L Total Bilirubin (0.2-1.3) mg/dL AST (14-36) U/L ALT (4-34) U/L Alkaline Phosphatase (38-126) U/L Total Protein (6.3-8.2) g/dL Albumin (3.5-5.0) g/dL Ur Random Sodium <20 L (40-220) mmol/L 07/03/23 07/03/23 07/03/23 Range/Units 17:28 17:39 20:30 WBC (3.8-10.6) k/uL MCV (80.0-100.0) fL RDW (11.5-15.5) % Plt Count (150-450) k/uL Macrocytosis Sodium 120 L (137-145) mmol/L Potassium 6.1 H* 5.2 H (3.5-5.1) mmol/L Chloride 89 L (98-107) mmol/L Carbon Dioxide 21 L (22-30) mmol/L BUN 54 H (7-17) mg/dL Creatinine 1.73 H (0.52-1.04) mg/dL Glucose 130 H (74-99) mg/dL Osmolality (275-295) mOsm/kg Plasma Lactic Acid Gualberto 2.8 H* (0.7-2.0) mmol/L Total Bilirubin (0.2-1.3) mg/dL AST (14-36) U/L ALT (4-34) U/L Alkaline Phosphatase (38-126) U/L Total Protein (6.3-8.2) g/dL Albumin (3.5-5.0) g/dL Ur Random Sodium (40-220) mmol/L 07/03/23 07/04/23 07/04/23 Range/Units 20:30 00:36 10:10 WBC (3.8-10.6) k/uL MCV (80.0-100.0) fL RDW (11.5-15.5) % Plt Count (150-450) k/uL Macrocytosis Sodium 122 L 125 L (137-145) mmol/L Potassium (3.5-5.1) mmol/L Chloride 93 L 94 L (98-107) mmol/L Carbon Dioxide 20 L (22-30) mmol/L BUN 54 H 51 H (7-17) mg/dL Creatinine 1.50 H 1.37 H (0.52-1.04) mg/dL Glucose 72 L 112 H (74-99) mg/dL Osmolality (275-295) mOsm/kg Plasma Lactic Acid Gualberto 2.8 H* (0.7-2.0) mmol/L Total Bilirubin 5.3 H 5.5 H (0.2-1.3) mg/dL AST 1168 H 824 H (14-36) U/L ALT 939 H 892 H (4-34) U/L Alkaline Phosphatase 199 H 198 H (38-126) U/L Total Protein 5.4 L 5.7 L (6.3-8.2) g/dL Albumin 3.2 L 3.3 L (3.5-5.0) g/dL Ur Random Sodium (40-220) mmol/L 07/04/23 Range/Units 10:10 WBC 15.1 H (3.8-10.6) k/uL MCV 102.1 H (80.0-100.0) fL RDW 21.6 H (11.5-15.5) % Plt Count 131 L (150-450) k/uL Macrocytosis Marked A Sodium (137-145) mmol/L Potassium (3.5-5.1) mmol/L Chloride (98-107) mmol/L Carbon Dioxide (22-30) mmol/L BUN (7-17) mg/dL Creatinine (0.52-1.04) mg/dL Glucose (74-99) mg/dL Osmolality (275-295) mOsm/kg Plasma Lactic Acid Gualberto (0.7-2.0) mmol/L Total Bilirubin (0.2-1.3) mg/dL AST (14-36) U/L ALT (4-34) U/L Alkaline Phosphatase (38-126) U/L Total Protein (6.3-8.2) g/dL Albumin (3.5-5.0) g/dL Ur Random Sodium (40-220) mmol/L Assessment and Plan Assessment: Impression: Severe hyponatremia most likely secondary to diuretics, based on the clinical history, patient has been taking diuretics and has not taken much orally although the patient does have history of chronic diastolic congestive heart failure and she does have bilateral pleural effusions on this admission nonetheless the patient is responding to treatment, she received initially 0.9 normal saline, now she is on fluid restriction and she seems to be improving. History of chronic atrial fibrillation Chronic diastolic congestive heart failure Benign essential hypertension Acute kidney injury, possibly cardiorenal or could be related to diuretics, improving at present and renal functioning is steadily better. Acute transaminitis, improving Recommendation: Continue present supportive care measures Continue treatment of hyponatremia as per nephrology on the case, recommending more diuretics to be given and fluid restriction No plans to perform left-sided thoracentesis on the pleural effusion although that could be considered, I recommend medical treatment for pleural effusion rather than thoracentesis since it seems to be cardiac in nature. Will continue to follow Time with Patient: Less than 30
--- NOTE | 2023-07-04 14:50 | US ---
EXAMINATION TYPE: US carotid duplex BILAT DATE OF EXAM: 07/04/2023 COMPARISON: NONE CLINICAL INDICATION: Female, 87 years old with history of stenosis, fluid overload; patient denies an y signs or symptoms TECHNIQUE: Carotid duplex ultrasound examination. Indirect Doppler criteria was utilized. FINDINGS: EXAM MEASUREMENTS: RIGHT: Peak Systolic Velocity (PSV) cm/sec ----- Right CCA: 41 ----- Right ICA: 64 ----- Right ECA: 68 ICA/CCA ratio: 1.6 RIGHT: End Diastole cm/sec ----- Right CCA: 8 ----- Right ICA: 17 ----- Right ECA: 7 LEFT: Peak Systolic Velocity (PSV) cm/sec ----- Left CCA: 40 ----- Left ICA: 40 ----- Left ECA: 41 ICA/CCA ratio: 1.0 LEFT: End Diastole cm/sec ----- Left CCA: 13 ----- Left ICA: 15 ----- Left ECA: 6 VERTEBRALS (direction of flow): Right Vertebral: Antegrade Left Vertebral: Antegrade Rhythm: Arrhythmia DIRECTOR BLOOD BANK NOTES: No intimal thickening, plaque, or elevated velocities noted IMPRESSION: Less than 50% stenosis of the bilateral carotid bifurcations. Criteria for Assigning % of Stenosis / Diameter reduction (Estimation based on the indirect measurements of the internal carotid artery velocities (ICA PSV). 1. Normal (no stenosis)=ICA PSV < 125 cm/s: ratio < 2.0: ICA EDV<40 cm/s. 2. Less than 50% stenosis=ICA PSV < 125 cm/s: ratio < 2.0: ICA EDV<40 cm/s. 3. 50 to 69% stenosis=ICA PSV of 125 to 230 cm/s: ration 2.0 ? 4.0: ICA EDV 40-100 cm/s. 4. Greater than 70% stenosis to near occlusion= ICA PSV > 230 cm/s: ratio > 4.0: ICA EDV > 100 cm/s. 5. Near occlusion= ICA PSV velocities may be low or undetectable: variable ratio and ICA EDV. 6. Total occlusion=unable to detect flow.
--- NOTE | 2023-07-04 14:51 | US ---
EXAMINATION TYPE: US kidneys/renal and bladder DATE OF EXAM: 07/04/2023 COMPARISON: NONE CLINICAL INDICATION: Female, 87 years old with history of kaycee; patient denies any signs or symptoms a t this time EXAM MEASUREMENTS: Right Kidney: 10.8 x 4.9 x 5.2 cm Left Kidney: 10.4 x 4.6 x 5.7 cm Post Void Residual Volume: NA mL Right Kidney: wnl Left Kidney: Limited visualization due to overlying ribs and bowel gas, WNL as visualized Bladder: Hdez noted within, WNL as visualized Bilateral Jets seen: Not able to assess Normal Post Void Residual: NA There is no evidence for hydronephrosis at this point in time. No nephrolithiasis is seen. No az s are identified. The urinary bladder is anechoic. Trace fluid seen throughout abdomen. Bilateral pleural effusions noted IMPRESSION: 1. No evidence for obstructive uropathy. 2. Hdez catheter within the urinary bladder.
[2023-07-04] MEDS: SODIUM CHLORIDE 0.9% 1,000 ML IV SCH (15:08)
--- NOTE | 2023-07-04 16:09 | P.PN ---
Subjective Progress Note Date: 07/04/23 HISTORY OF PRESENT ILLNESS: 87-year-old office patient with active medical history of A-fib, hypertension, hyperlipidemia, osteoporosis who was diagnosed with new onset of A-fib with RVR caused significant diastolic congestive heart failure with fluid overload was hospitalized in June 04 for 3 days for A-fib with RVR was quite symptomatic. She mated to the emergency department after her discharge 1 time she seen cardiology and scheduled elective cardioversion on 07/04/2023. Patient currently to have significant sign and symptom of mild worsening shortness of breath dyspnea fluid overload with significant PND orthopnea palpitation ended up seeing in our office and seen cardiology and the plan again to keep that date for cardioversion for tomorrow. She ended up in the emergency department today 07/03/2023 because of severe Symptom consistent with generalized weakness fatigue tiredness lightheadedness with slight altered mental status her finding in the emergency department with EKG showing A-fib with pulse control in the 70s and 80s. Chest x-ray showed car diomegaly with pulmonary vascular congestion and bilateral pleural effusion correlate with congestive heart failure. Surprisingly laboratory value shows acute kidney injury with creatinine at 1.59 BUN 52 potassium was 6.1 and original sodium was 119 patient was diagnosed with severe hyponatremia and hyperkalemia with leukocytosis and transaminitis with AST 1153 ALT 868 alk phos 244 with normal ammonia level conjugated bilirubin 1.0 with unconjugated bilirubin at 4.2. BNP was 6800 troponin was normal lactic acid was 2.8. Patient be admitted to the hospital for the severity of her hyponatremia at this point with significant abnormality with her lab value and also to be seen cardiology her cardioversion probably will be delayed at this point, there is an evidence space for acute kidney injury from her diuretics and probably transaminitis from the severity of her heart failure and as a pump failure with hypoperfusion. 07/04/2023: Liver function test are still quite good off in the thousand with an AST and ALT total bilirubin still mildly elevated. Might do liver ultrasound patient eventually will need to see pathologist. Awaiting for nephrology today to see patient and still has not seen cardiology yet with the plan to have patient go for cardioversion today scheduled as an outpatient but pulse rate has been running in the 60s and 70s might not require cardioversion in the first place. REVIEW OF SYSTEMS: CONSTITUTIONAL: Elderly does not look in any respiratory distress. EYES: No icterus sclerae, no conjunctivitis. EARS, NOSE, MOUTH, THROAT, and FACE: No sore throat, lymphadenopathy, carotid bruits or deformity. RESPIRATORY: Positive shortness of breath cough wheezes. CARDIOVASCULAR: Positive PND orthopnea palpitation no angina. GASTROINTESTINAL: No Abd pain, Nausea or vomiting, no Diarrhea or constipation, No GI Bleed, no distention or masses. GENITOURINARY: Negative for Hematuria or UTI, no kidney stones. INTEGUMENT/BREAST: Negative for any muscular injury with mild osteoarthritis.. HEMATOLOGIC/LYMPHATIC: Negative for bleed or purpura. MUSCULOSKELTAL: Generalized muscle and joint pain. NEURLOGICAL: No LOC, Sz or syncope, blurred vision dizziness or abnormality.. BEHAVIORAL/PSYCH: Negative. ENDOCRINE: Negative. PHYSICAL EXAMINATION: General Appearance: Alert, cooperative, no distress, appears stated age. Neck HEENT: Supple, no lymphadenopathy, no thyroid enlargement, no carotid bruits. Lungs: Decreased breath sound bilaterally with fine rhonchi positive mild crackles in the bases spasmodics breath or wheezes. Chest Wall: Decreased expansion with deep inspiration especially in the right base, no tenderness and no deformity was found on exam, no costochondral pain or discomfort. There is a slight jaundice color on the surface part of the chest wall area. Heart: Irregular rate and rhythm, S1, S2 positive S3, positive jugular vein distention, positive systolic murmur with tachycardia of 140 bpm. Back: Symmetric, no curvature, ROM normal, no CVA tenderness. Abdomen: Soft, non-tender, bowel sounds active all four quadrants, no masses, significant hepatomegaly. Extremities: Extremities normal, atraumatic, no cyanosis or edema. Pulses: 2+ and symmetric. Skin: Jaundice with normal texture otherwise. Neurologic: Alert oriented x3 cranial nerves II through XII intact, no motor def icit, no abnormal balance or gait. ASSESSMENT AND PLAN: _Severe hyponatremia: Most likely the effect of the diuretics and SIADH: She will be seen nephrology continue to watch her fluid intake and urine output for now carefully repeat sodium in the next 24 hours fluid restriction will be done and also slow down on her diuretics. She does not require to be on 3% sodium c hloride yet. _Acute kidney injury with most likely acute tubular necrosis with possibility of cardiorenal syndrome, continue hydration watch symptoms carefully. _Metabolic acidosis: Secondary to acute kidney injury continue to treat underlying disease. _Hyperkalemia: With the severity of her acute kidney injury patient will have smaller dose of Lokelma 5 mg one-time. _Acute transaminitis: Repeat ultrasound again waiting for GI consult eventually. _Acute diastolic congestive heart failure: Most likely with worsening symptoms causing more fluid overload will require probably a little bit more aggressive diuretics management. _New onset of A-fib with rapid ventricular response had responded quite bit lately to the current antiarrhythmic she is on including flecainide and metoprolol still on anticoagulation. _Significant fluid overload with congestive heart failure with mild A-fib car diomyopathy, continue again with diuretics to watch kidney function carefully. _Leukocytosis: Most likely reactive leukocytosis we will continue to watch for any secondary infection repeat CBC again. _Hypertension: Has been on metoprolol resume medication. Will benefit from a smaller dose of ARB. _Mild altered mental status: Most likely from the severity of her hyponatremia treat underlying disease hopefully mentation will go back to normal. _Hyperlipidemia: Was supposed to be on smaller dose of atorvastatin. _GI prophylaxis: Patient be on Pepcid 20 mg daily. _DVT prophylaxis: Patient is on anticoagulation at this point. Prognosis: Fair. Discussion patient be seen nephrology, and cardiology today continue current management sodium has improved some on mental status slightly get better and patient cardiac arrhythmia and A-fib has been much better at this point. Objective - Vital Signs Vital signs: Vital Signs Temp 97.6 F 07/04/23 03:19 Pulse 82 07/04/23 03:19 Resp 14 07/04/23 03:19 BP 112/74 07/04/23 03:19 Pulse Ox 96 07/04/23 03:19 FiO2 Intake & Output 07/03/23 07/03/23 07/04/23 06:59 18:59 06:59 Intake Total 240 Output Total 1000 Balance -760 Weight 80.4 kg 80.4 kg Intake: Oral 240 Output: Urine 1000 Other: Voiding Method Indwelling Catheter - Labs CBC & Chem 7: 07/04/23 10:10 07/04/23 10:10 Labs: Abnormal Lab Results - Last 24 Hours (Table) 07/03/23 07/03/23 07/03/23 Range/Units 10:39 10:39 10:39 WBC 17.1 H (3.8-10.6) k/uL RDW 21.6 H (11.5-15.5) % Neutrophils # (Manual) 14.36 H (1.3-7.7) k/uL Monocytes # (Manual) 1.20 H (0-1.0) k/uL Nucleated RBCs 6 H (0-0) /100 WBC Sodium 119 L* (137-145) mmol/L Potassium 5.8 H (3.5-5.1) mmol/L Chloride 86 L (98-107) mmol/L Carbon Dioxide 18 L (22-30) mmol/L BUN 52 H (7-17) mg/dL Creatinine 1.66 H (0.52-1.04) mg/dL Glucose 123 H (74-99) mg/dL Osmolality (275-295) mOsm/kg Plasma Lactic Acid Gualberto 3.0 H* (0.7-2.0) mmol/L Total Bilirubin 6.0 H (0.2-1.3) mg/dL Conjugated Bilirubin 1.0 H (0.0-0.3) mg/dL Unconjugated Bilirubin 4.2 H (0.0-1.1) mg/dL Delta Bilirubin 0.8 H (0.0-0.2) mg/dL AST 1133 H (14-36) U/L ALT 868 H (4-34) U/L Alkaline Phosphatase 244 H (38-126) U/L Total Protein (6.3-8.2) g/dL Albumin (3.5-5.0) g/dL Urine Appearance (Clear) Urine Protein (Negative) Urine Bacteria (None) /hpf Hyaline Casts (0-2) /lpf Urine Mucus (None) /hpf Ur Random Sodium (40-220) mmol/L 07/03/23 07/03/23 07/03/23 Range/Units 11:47 14:23 15:20 WBC (3.8-10.6) k/uL RDW (11.5-15.5) % Neutrophils # (Manual) (1.3-7.7) k/uL Monocytes # (Manual) (0-1.0) k/uL Nucleated RBCs (0-0) /100 WBC Sodium (137-145) mmol/L Potassium (3.5-5.1) mmol/L Chloride (98-107) mmol/L Carbon Dioxide (22-30) mmol/L BUN (7-17) mg/dL Creatinine (0.52-1.04) mg/dL Glucose (74-99) mg/dL Osmolality (275-295) mOsm/kg Plasma Lactic Acid Gualberto 3.6 H* (0.7-2.0) mmol/L Total Bilirubin (0.2-1.3) mg/dL Conjugated Bilirubin (0.0-0.3) mg/dL Unconjugated Bilirubin (0.0-1.1) mg/dL Delta Bilirubin (0.0-0.2) mg/dL AST (14-36) U/L ALT (4-34) U/L Alkaline Phosphatase (38-126) U/L Total Protein (6.3-8.2) g/dL Albumin (3.5-5.0) g/dL Urine Appearance Cloudy H (Clear) Urine Protein 2+ H (Negative) Urine Bacteria Rare H (None) /hpf Hyaline Casts 17 H (0-2) /lpf Urine Mucus Rare H (None) /hpf Ur Random Sodium <20 L (40-220) mmol/L 07/03/23 07/03/23 07/03/23 Range/Units 16:34 17:28 17:39 WBC (3.8-10.6) k/uL RDW (11.5-15.5) % Neutrophils # (Manual) (1.3-7.7) k/uL Monocytes # (Manual) (0-1.0) k/uL Nucleated RBCs (0-0) /100 WBC Sodium 120 L (137-145) mmol/L Potassium 7.0 H* 6.1 H* (3.5-5.1) mmol/L Chloride 92 L (98-107) mmol/L Carbon Dioxide 15 L (22-30) mmol/L BUN 52 H (7-17) mg/dL Creatinine 1.59 H (0.52-1.04) mg/dL Glucose (74-99) mg/dL Osmolality 270 L (275-295) mOsm/kg Plasma Lactic Acid Gualberto 2.8 H* (0.7-2.0) mmol/L Total Bilirubin (0.2-1.3) mg/dL Conjugated Bilirubin (0.0-0.3) mg/dL Unconjugated Bilirubin (0.0-1.1) mg/dL Delta Bilirubin (0.0-0.2) mg/dL AST (14-36) U/L ALT (4-34) U/L Alkaline Phosphatase (38-126) U/L Total Protein (6.3-8.2) g/dL Albumin (3.5-5.0) g/dL Urine Appearance (Clear) Urine Protein (Negative) Urine Bacteria (None) /hpf Hyaline Casts (0-2) /lpf Urine Mucus (None) /hpf Ur Random Sodium (40-220) mmol/L 07/03/23 07/03/23 07/04/23 Range/Units 20:30 20:30 00:36 WBC (3.8-10.6) k/uL RDW (11.5-15.5) % Neutrophils # (Manual) (1.3-7.7) k/uL Monocytes # (Manual) (0-1.0) k/uL Nucleated RBCs (0-0) /100 WBC Sodium 120 L 122 L (137-145) mmol/L Potassium 5.2 H (3.5-5.1) mmol/L Chloride 89 L 93 L (98-107) mmol/L Carbon Dioxide 21 L 20 L (22-30) mmol/L BUN 54 H 54 H (7-17) mg/dL Creatinine 1.73 H 1.50 H (0.52-1.04) mg/dL Glucose 130 H 72 L (74-99) mg/dL Osmolality (275-295) mOsm/kg Plasma Lactic Acid Gualberto 2.8 H* (0.7-2.0) mmol/L Total Bilirubin 5.3 H (0.2-1.3) mg/dL Conjugated Bilirubin (0.0-0.3) mg/dL Unconjugated Bilirubin (0.0-1.1) mg/dL Delta Bilirubin (0.0-0.2) mg/dL AST 1168 H (14-36) U/L ALT 939 H (4-34) U/L Alkaline Phosphatase 199 H (38-126) U/L Total Protein 5.4 L (6.3-8.2) g/dL Albumin 3.2 L (3.5-5.0) g/dL Urine Appearance (Clear) Urine Protein (Negative) Urine Bacteria (None) /hpf Hyaline Casts (0-2) /lpf Urine Mucus (None) /hpf Ur Random Sodium (40-220) mmol/L
[2023-07-04] MEDS: LACTATED RINGERS 1,000 ML IV ONE (16:27)
[2023-07-04] MEDS ORDERED: PROPOFOL 10 MG/ML 20 ML VIAL IV ONE (16:35)
[2023-07-04] MEDS ORDERED: PHENYLEPHRINE 10 MG/ML VIAL ONE (16:35)
--- NOTE | 2023-07-04 17:20 | P.PCN ---
Description of Procedure: Procedure performed: Synchronized cardioversion Moderate conscious sedation: Moderate conscious sedation was supplied by anesthesia, see separate report. Complications: none Indications: Persistent A. fib, taking anticoagulation without fail PROCEDURE: After the risks, benefits and alternatives of the above mentioned procedure was explained in detail with the patient, informed consent was obtained. Patient was brought to the lab in a fasting state. Patient was given sedation by anesthesia, see separate report. Patient had been taking anticoagulation without fail for over 30 days. Therefore patient underwent synchronized cardioversion x 1 with 200J with resultant sinus rhythm. Patient tolerated the procedure well. Patient was transferred to the post procedure area in stable and satisfactory condition.
[2023-07-05 08:42] LABS: African American GFR (CKD) 46 (>60 ml/min/1.73 sqM); Anion Gap 10 mmol/L; Blood Urea Nitrogen 53 mg/dL (7-17); Calcium 8.3 mg/dL (8.4-10.2); Carbon Dioxide 22 mmol/L (22-30); Chloride 99 mmol/L (98-107); Glucose 110 mg/dL (74-99); Non-African American GFR(CKD) 40 (>60 ml/min/1.73 sqM); Potassium 4.2 mmol/L (3.5-5.1); Sodium 131 mmol/L (137-145)
[2023-07-05] MEDS: METOPROLOL TARTRATE 50 MG TAB PO SCH (10:35)
--- NOTE | 2023-07-05 11:36 | P.PN ---
Subjective Progress Note Date: 07/05/23 Principal diagnosis: Severe hyponatremia and acute on chronic diastolic congestive heart failure This is an 87-year-old female patient with a known history of osteoporosis, osteoarthritis, hyperlipidemia, hypertension and was recently hospitalized last month for new onset A-fib with RVR and congestive heart failure. She had been on Lasix for the past couple of weeks at 40 in the morning and 20 in the evening. She is anticoagulated with Eliquis. She presented back to the emergency room earlier today with progressive weakness and falling and unable to care for herself. Chest x-ray reveals cardiomegaly with pulmonary vascular congestion and bilateral pleural effusions. White count 17.1. Hemoglobin 13.7. Platelets 171. Sodium 119. Potassium 5.8. BUN 52. Creatinine 1.66. Glucose 123. AST 1133. ALT 868 viral screen negative. She is seen in consultation in the emergency department. She was being considered for possible ICU admission. She is currently sitting up on the stretcher. Awake and alert in no acute distress. She is somewhat slow to respond. Her family is at the bedside. She is maintaining good O2 saturations in the upper 90s on room air. She is afebrile. Hemodynamically stable. She received 500 cc of normal saline fluid bolus. She has normal saline at 50 MLS per hour. EKG reveals atrial fibrillation with a controlled ventricular response. Patient was reevaluated today on 07/03/2023, patient is looking much better today, remains on nasal cannula, but not in distress, patient was admitted with severe hyponatremia and a picture of acute on chronic diastolic congestive heart failure she was also noted to have acute kidney injury known to have history of severe mitral regurgitation and chronic diastolic congestive heart failure. Patient has been on diuretics recently for her congestive heart failure. Patient was seen by nephrology and she is getting diuresed, at the same time recommending fluid restriction down to 1200 cc/day sodium today is up to 125, patient came in with a sodium of 119, liver enzymes today are improving renal profile is improving initial creatinine was 1.73, today it is 1.37 patient did receive fluids on her initial presentation in the ER. Form of 0.9 normal saline chest x-ray continues to show evidence of bilateral pleural effusions left more so than right Reevaluate on 07/05/2023, patient is doing much better today, she underwent synchronized cardioversion yesterday by cardiology, and she converted to a sinus rhythm. Patient is feeling better, breathing easier, remains on diuretics in t he form of Lasix. Sodium is up to 131, basic metabolic profile is normal renal profile is improving and creatinine is down to 1.22 no liver enzymes noted today. PatientIs on room air, O2 sats is 94% Objective - Vital Signs Vital signs: Vital Signs Temp 97.8 F 07/05/23 08:40 Pulse 59 L 07/05/23 08:40 Resp 17 07/05/23 08:40 BP 110/55 07/05/23 08:40 Pulse Ox 94 L 07/05/23 08:40 FiO2 Intake & Output 07/04/23 07/05/23 07/05/23 18:59 06:59 18:59 Intake Total 336 240 118 Output Total 2850 400 Balance -2514 -160 118 Intake: IV 100 Oral 236 240 118 Output: Urine 2850 400 Other: Voiding Method Indwelling Catheter Indwelling Catheter Indwelling Catheter - Exam General: Revealed 87-year-old female in no distress, on room air HEAD: Normocephalic. EYES: Normal reaction of pupils, equal size. NOSE: Clear with pink turbinates. THROAT: No erythema or exudates. NECK: No masses, no JVD. CHEST: No chest wall deformity. LUNGS: Diminished breath sounds at the bases specially at the left base CVS: S1 and S2 normal with no audible murmur, regular rhythm noted. ABDOMEN: No hepatosplenomegaly, normal bowel sounds, no guarding or rigidity. SKIN: No rashes CENTRAL NERVOUS SYSTEM: Alert and oriented x 3 no gross focal deficit EXTREMITIES: Trace of bipedal edema no cyanosis - Labs CBC & Chem 7: 07/04/23 10:10 07/05/23 07:48 Labs: Abnormal Lab Results - Last 24 Hours (Table) 07/04/23 07/04/23 07/05/23 Range/Units 10:10 15:59 07:48 WBC 15.1 H (3.8-10.6) k/uL MCV 102.1 H (80.0-100.0) fL RDW 21.6 H (11.5-15.5) % Plt Count 131 L (150-450) k/uL Macrocytosis Marked A Sodium 132 L 131 L (137-145) mmol/L BUN 53 H (7-17) mg/dL Creatinine 1.22 H (0.52-1.04) mg/dL Glucose 110 H (74-99) mg/dL Calcium 8.3 L (8.4-10.2) mg/dL Microbiology - Last 24 Hours (Table) 07/03/23 13:50 Blood Culture - Preliminary Blood 07/03/23 13:35 Blood Culture - Preliminary Blood Assessment and Plan Assessment: Impression: Severe hyponatremia most likely secondary to diuretics, based on the clinical history, patient has been taking diuretics and has not taken much orally although the patient does have history of chronic diastolic congestive heart failure and she does have bilateral pleural effusions on this admission nonetheless the patient is responding to treatment, History of chronic atrial fibrillation, patient is status post cardioversion on 07/03 presently in sinus rhythm. Chronic diastolic congestive heart failure, on diuretics Benign essential hypertension Acute kidney injury, possibly cardiorenal or could be related to diuretics, improving at present and renal functioning is steadily better. Acute transaminitis Recommendation: Continue present supportive care measures Continue Lasix. No plans to perform left-sided thoracentesis Repeat chest x-ray on Friday Will continue to follow Time with Patient: Less than 30
[2023-07-05 11:44] LABS: Albumin 3.3 g/dL (3.5-5.0); Bilirubin, Conjugated 0.7 mg/dL (0.0-0.3); Bilirubin, Delta 0.6 mg/dL (0.0-0.2); Bilirubin,Unconjugated 4.1 mg/dL (0.0-1.1); Total Bilirubin 5.4 mg/dL (0.2-1.3); Total Protein 5.5 g/dL (6.3-8.2)
--- NOTE | 2023-07-05 13:17 | P.PN ---
Subjective Progress Note Date: 07/05/23 Patient seen in follow-up for MARSHA and hyponatremia. Feeling better and swelling continues to improve. Underwent cardioversion yesterday. Vital signs are stable. General: No acute distress. HEENT: Head exam is unremarkable. On nasal cannula. LUNGS: No audible rhonchi or wheezes. HEART: Rate and Rhythm are regular. ABDOMEN: Nontender. EXTREMITITES: Trace edema. Objective - Vital Signs Vital signs: Vital Signs Temp 98.2 F 07/05/23 03:30 Pulse 57 L 07/05/23 03:30 Resp 15 07/05/23 03:30 BP 102/67 07/05/23 03:30 Pulse Ox 93 L 07/05/23 08:01 FiO2 Intake & Output 07/04/23 07/05/23 07/05/23 18:59 06:59 18:59 Intake Total 336 240 118 Output Total 2850 400 Balance -2514 -160 118 Intake: IV 100 Oral 236 240 118 Output: Urine 2850 400 Other: Voiding Method Indwelling Catheter Indwelling Catheter - Labs CBC & Chem 7: 07/04/23 10:10 07/05/23 07:48 Labs: Abnormal Lab Results - Last 24 Hours (Table) 07/04/23 07/04/23 07/04/23 Range/Units 10:10 10:10 15:59 WBC 15.1 H (3.8-10.6) k/uL MCV 102.1 H (80.0-100.0) fL RDW 21.6 H (11.5-15.5) % Plt Count 131 L (150-450) k/uL Macrocytosis Marked A Sodium 125 L 132 L (137-145) mmol/L Chloride 94 L (98-107) mmol/L BUN 51 H (7-17) mg/dL Creatinine 1.37 H (0.52-1.04) mg/dL Glucose 112 H (74-99) mg/dL Calcium (8.4-10.2) mg/dL Total Bilirubin 5.5 H (0.2-1.3) mg/dL AST 824 H (14-36) U/L ALT 892 H (4-34) U/L Alkaline Phosphatase 198 H (38-126) U/L Total Protein 5.7 L (6.3-8.2) g/dL Albumin 3.3 L (3.5-5.0) g/dL 07/05/23 Range/Units 07:48 WBC (3.8-10.6) k/uL MCV (80.0-100.0) fL RDW (11.5-15.5) % Plt Count (150-450) k/uL Macrocytosis Sodium 131 L (137-145) mmol/L Chloride (98-107) mmol/L BUN 53 H (7-17) mg/dL Creatinine 1.22 H (0.52-1.04) mg/dL Glucose 110 H (74-99) mg/dL Calcium 8.3 L (8.4-10.2) mg/dL Total Bilirubin (0.2-1.3) mg/dL AST (14-36) U/L ALT (4-34) U/L Alkaline Phosphatase (38-126) U/L Total Protein (6.3-8.2) g/dL Albumin (3.5-5.0) g/dL Microbiology - Last 24 Hours (Table) 07/03/23 13:50 Blood Culture - Preliminary Blood 07/03/23 13:35 Blood Culture - Preliminary Blood Assessment and Plan Plan: Assessment: 1. Acute kidney injury secondary to ATN secondary to cardiorenal syndrome. Creatinine peaked at 1.73 this admission and is 1.22 today. Baseline creatinine near 1. Renal US no hydronephrosis. 2. Acute on chronic diastolic CHF with moderate mitral and tricuspid regurgitation. 3. Fluid overload. 4. Hypervolemic hyponatremia. Urine sodium less than 20 and urine osmolality 425. 5. Hyperkalemia secondary to acute kidney injury, metabolic acidosis, as well as potassium supplementation. Improved with medical management. 6. Metabolic acidosis secondary to acute kidney injury. Plan: Continue IV Lasix 40 mg once daily, transition to PO soon. OK to discontinue Hdez catheter. Encourage oral intake, particularly protein. Maintain 1200 cc fluid restriction. Clear for discharge form nephrology standpoint.
--- NOTE | 2023-07-05 13:56 | P.PN ---
Subjective Progress Note Date: 07/05/23 87-year-old patient with history of A-fib, hypertension, hyperlipidemia, osteoporosis who was diagnosed with new onset of A-fib with RVR caused significant diastolic congestive heart failure with fluid overload was hospitalized in June 04 for 3 days for A-fib with RVR was quite symptomatic. She was evaluated by cardiology cardiology and scheduled elective cardioversion on 07/04/2023. She ended up in the emergency department 07/03/2023 because of severe Symptom consistent with generalized weakness fatigue tiredness lightheadedness with slight altered mental status her finding in the emergency department with EKG showing A-fib with pulse control in the 70s and 80s. Chest x-ray showed cardiomegaly with pulmonary vascular congestion and bilateral pleural effusion correlate with congestive heart failure. Laboratory value shows acute kidney injury with creatinine at 1.59 BUN 52 potassium was 6.1 and original sodium was 119 patient was diagnosed with severe hyponatremia and hyperkalemia with leukocytosis and transaminitis with AST 1153 ALT 868 alk phos 244 with normal ammonia level conjugated bilirubin 1.0 with unconjugated bilirubin at 4.2. BNP was 6800 troponin was normal lactic acid was 2.8. Patient admitted to the hospital for the severity of her hyponatremia at this point with significant abnormality with her lab value and also to be seen cardiology her cardioversion probably will be delayed at this point, there is an evidence space for acute kidney injury from her diuretics and probably transaminitis from the severity of her heart failure and as a pump failure with hypoperfusion. --Patient reports severe constipation and reporting no bowel movement for over a week Lab review shows sodium is improved to 131, potassium is 4.2; liver enzymes remain elevated but continue to trend down slowly --Patient remains on Lasix 40 mg IV daily; will continue to monitor electrolytes closely and supplement as needed --Will add lactulose 20 g p.o. twice daily with further recommendations to Objective - Vital Signs Vital signs: Vital Signs Temp 98.2 F 07/05/23 03:30 Pulse 57 L 07/05/23 03:30 Resp 15 07/05/23 03:30 BP 102/67 07/05/23 03:30 Pulse Ox 93 L 07/05/23 08:01 FiO2 Intake & Output 07/04/23 07/05/23 07/05/23 18:59 06:59 18:59 Intake Total 336 240 118 Output Total 2850 400 Balance -2514 -160 118 Intake: IV 100 Oral 236 240 118 Output: Urine 2850 400 Other: Voiding Method Indwelling Catheter Indwelling Catheter - Exam Neck HEENT: Supple, no lymphadenopathy, no thyroid enlargement, no carotid bruits. Lungs: Decreased breath sound bilaterally with fine rhonchi positive mild crackles in the bases spasmodics breath or wheezes. Chest Wall: Decreased expansion with deep inspiration especially in the right base, no tenderness and no deformity was found on exam, no costochondral pain or discomfort. There is a slight jaundice color on the surface part of the chest wall area. Heart: Irregular rate and rhythm, S1, S2 positive S3, positive jugular vein distention, positive systolic murmur with tachycardia of 140 bpm. Back: Symmetric, no curvature, ROM normal, no CVA tenderness. Abdomen: Soft, non-tender, bowel sounds active all four quadrants, no masses, significant hepatomegaly. Extremities: Extremities normal, atraumatic, no cyanosis or edema. Pulses: 2+ and symmetric. Skin: Jaundice with normal texture otherwise. Neurologic: Alert oriented x3 cranial nerves II through XII intact, no motor deficit, no abnormal balance or gait. - Labs CBC & Chem 7: 07/04/23 10:10 07/05/23 07:48 Labs: Abnormal Lab Results - Last 24 Hours (Table) 07/04/23 07/04/23 07/04/23 Range/Units 10:10 10:10 15:59 WBC 15.1 H (3.8-10.6) k/uL MCV 102.1 H (80.0-100.0) fL RDW 21.6 H (11.5-15.5) % Plt Count 131 L (150-450) k/uL Macrocytosis Marked A Sodium 125 L 132 L (137-145) mmol/L Chloride 94 L (98-107) mmol/L BUN 51 H (7-17) mg/dL Creatinine 1.37 H (0.52-1.04) mg/dL Glucose 112 H (74-99) mg/dL Calcium (8.4-10.2) mg/dL Total Bilirubin 5.5 H (0.2-1.3) mg/dL AST 824 H (14-36) U/L ALT 892 H (4-34) U/L Alkaline Phosphatase 198 H (38-126) U/L Total Protein 5.7 L (6.3-8.2) g/dL Albumin 3.3 L (3.5-5.0) g/dL 07/05/23 Range/Units 07:48 WBC (3.8-10.6) k/uL MCV (80.0-100.0) fL RDW (11.5-15.5) % Plt Count (150-450) k/uL Macrocytosis Sodium 131 L (137-145) mmol/L Chloride (98-107) mmol/L BUN 53 H (7-17) mg/dL Creatinine 1.22 H (0.52-1.04) mg/dL Glucose 110 H (74-99) mg/dL Calcium 8.3 L (8.4-10.2) mg/dL Total Bilirubin (0.2-1.3) mg/dL AST (14-36) U/L ALT (4-34) U/L Alkaline Phosphatase (38-126) U/L Total Protein (6.3-8.2) g/dL Albumin (3.5-5.0) g/dL Microbiology - Last 24 Hours (Table) 07/03/23 13:50 Blood Culture - Preliminary Blood 07/03/23 13:35 Blood Culture - Preliminary Blood Assessment and Plan Assessment: 1. Severe hyponatremia: Most likely the effect of the diuretics and SIADH: Sodium level slowly trending up and is at 131 this morning 2. Acute kidney injury with most likely acute tubular necrosis with possibility of cardiorenal syndrome, continue hydration watch symptoms carefully. Creatinine continues to improve slowly 3. Metabolic acidosis: Secondary to acute kidney injury continue to treat underlying disease. 4. Hyperkalemia: With the severity of her acute kidney injury patient will have smaller dose of Lokelma 5 mg one-time. Potassium within normal limit at 4.2 thi s morning 5. Acute transaminitis: Repeat ultrasound again waiting for GI consult eventually. Hepatic ultrasound is significant for hepatic steatosis; liver enzymes are being monitored and are continuing to Trend down 6. Acute diastolic congestive heart failure: Lasix 40 mg IV daily; monitor str ict GRICELDA's, daily weights, low-salt and fluid restricted diet 7. New onset atrial fibrillation with RVR; patient is status post cardioversion and converted to normal sinus rhythm 8. Hypertension: Has been on metoprolol resume medication. Will benefit from a smaller dose of ARB. 9. Mild altered mental status: Most likely from the severity of her hyponatremia treat underlying disease hopefully mentation will go back to normal. 10. Hyperlipidemia: Was supposed to be on smaller dose of atorvastatin. DVT prophylaxis: Patient is on anticoagulation at this point. CODE STATUS; DNR
--- NOTE | 2023-07-05 14:42 | P.PN ---
Subjective Progress Note Date: 07/05/23 Consult reason: congestive heart failure History of present illness: History of present illness: This is an 87-year-old female patient of Dr. Marcelino with past medical history of atrial fibrillation, mitral regurgitation, hypertension, dyslipidemia. We have been asked to evaluate the patient for CHF. Patient states that she had a fall where she was trying to get out of a chair and fell backwards into the chair. There was no loss of consciousness. She states she has not been feeling well for a while. She had been sleeping in her chair all night. She denies having any chest pain or chest pressure. She states she has not been eating or drinking very much. She denies nausea and no abdominal pain. She did have some edema which is decreased. She has had a Hdez catheter placed. Shortness of breath is improved. Patient has been started on IV Lasix 40 mg daily by nephrology. Discussed that it seems atrial fibrillation seems to be exace rbating all of her other symptoms. Option of cardioversion was discussed with the patient and she is agreeable to move forward. EKG atrial fibrillation at a ventricular rate of 71 bpm Chest x-ray: Cardiomegaly, pulmonary vascular congestion and bilateral pleural effusion WBC 15, hemoglobin 12.7, platelet count 131. Sodium 135, potassium 4.5, chloride 94, CO2 26, BUN 51 creatinine 1.37. Liver function tests are elevated. Magnesium 2.0. TSH 0.771. Home cardiac medications: Eliquis 5 mg twice daily, flecainide 100 mg every 12 hours, Lasix 40 mg daily and 20 mg at 2 PM, Lopressor 100 mg every 12 hours, potassium chloride 10 mill equivalents daily Echocardiogram performed 06/05/2023 reveals EF of 50% - 55% moderate mitral regurgitation. Mild aortic regurgitation. Moderate tricuspid regurgitation. Mild pulmonary hypertension. 07/04 Patient is seen today in follow-up. She is up in a chair. She denies any lightheadedness or dizziness. Yesterday, she underwent cardioversion and she r emains in a sinus rhythm. She states she has not noticed a big difference but definitely better from before. Blood pressure 107/59, heart rate 51, pulse ox 95% on room air. Repeat blood work reveals sodium 131, potassium 4.2, BUN 53 creatinine 1.22. Liver function test remain elevated. Patient has been maintained on IV Lasix 40 mg daily by nephrology. Patient has a negative fluid balance. Physical examination: Gen: This is an 87-year-old female in no acute distress appears to be unwell. VS: reviewed, blood pressure 131/94, heart rate 79, pulse ox 90% on 2 L nasal cannula. HEENT: Head is atraumatic, normocephalic. Pupils equal, round. Sclerae is anicteric. NECK: Supple. No JVD. LUNGS: Diminished breath sounds. No intercostal retractions. HEART: Irregular rate and rhythm. No murmur. ABDOMEN: Soft No tenderness. EXTREMITIES: Minimal pedal edema. No calf tenderness. NEUROLOGICAL: Patient is awake, alert and oriented x3. Assessment: Acute kidney injury Hyperkalemia Hyponatremia Metabolic acidosis Elevated liver function test Persistent atrial fibrillation status post synchronized cardioversion on 07/03 Acute diastolic heart failure Mitral regurgitation Hypertension Dyslipidemia Plan: Continue patient's home cardiac medications Continue patient on IV Lasix 40 mg daily per nephrology Monitor GRICELDA, daily weights, electrolytes and renal function Continue telemetry monitoring Further recommendations to follow based upon clinical course Nurse practitioner note has been reviewed, I agree with documented findings and plan of care. Patient was seen and examined. Objective - Vital Signs Vital signs: Vital Signs Temp 98.2 F 07/05/23 03:30 Pulse 57 L 07/05/23 03:30 Resp 15 07/05/23 03:30 BP 102/67 07/05/23 03:30 Pulse Ox 93 L 07/05/23 08:01 FiO2 Intake & Output 07/04/23 07/05/23 07/05/23 18:59 06:59 18:59 Intake Total 336 240 118 Output Total 2850 400 Balance -2514 -160 118 Intake: IV 100 Oral 236 240 118 Output: Urine 2850 400 Other: Voiding Method Indwelling Catheter Indwelling Catheter - Labs CBC & Chem 7: 07/04/23 10:10 07/05/23 07:48 Labs: Abnormal Lab Results - Last 24 Hours (Table) 07/04/23 07/04/23 07/04/23 Range/Units 10:10 10:10 15:59 WBC 15.1 H (3.8-10.6) k/uL MCV 102.1 H (80.0-100.0) fL RDW 21.6 H (11.5-15.5) % Plt Count 131 L (150-450) k/uL Macrocytosis Marked A Sodium 125 L 132 L (137-145) mmol/L Chloride 94 L (98-107) mmol/L BUN 51 H (7-17) mg/dL Creatinine 1.37 H (0.52-1.04) mg/dL Glucose 112 H (74-99) mg/dL Calcium (8.4-10.2) mg/dL Total Bilirubin 5.5 H (0.2-1.3) mg/dL AST 824 H (14-36) U/L ALT 892 H (4-34) U/L Alkaline Phosphatase 198 H (38-126) U/L Total Protein 5.7 L (6.3-8.2) g/dL Albumin 3.3 L (3.5-5.0) g/dL 07/05/23 Range/Units 07:48 WBC (3.8-10.6) k/uL MCV (80.0-100.0) fL RDW (11.5-15.5) % Plt Count (150-450) k/uL Macrocytosis Sodium 131 L (137-145) mmol/L Chloride (98-107) mmol/L BUN 53 H (7-17) mg/dL Creatinine 1.22 H (0.52-1.04) mg/dL Glucose 110 H (74-99) mg/dL Calcium 8.3 L (8.4-10.2) mg/dL Total Bilirubin (0.2-1.3) mg/dL AST (14-36) U/L ALT (4-34) U/L Alkaline Phosphatase (38-126) U/L Total Protein (6.3-8.2) g/dL Albumin (3.5-5.0) g/dL Microbiology - Last 24 Hours (Table) 07/03/23 13:50 Blood Culture - Preliminary Blood 07/03/23 13:35 Blood Culture - Preliminary Blood
[2023-07-05] MEDS: LACTULOSE 20 GM/30 ML CUP PO SCH (15:57)
[2023-07-06] MEDS: FUROSEMIDE 40 MG TAB PO SCH (08:02)
[2023-07-06 09:19] LABS: Anisocytosis Moderate; Basophils # (A) 0.1 k/uL (0-0.2); Basophils % (A) 1 %; Eosinophils # (A) 0.4 k/uL (0-0.7); Eosinophils % (A) 5 %; HGB 12.5 gm/dL (11.4-16.0); Hypochromasia Slight; Lymphocytes % (A) 11 %; MCH 32.3 pg (25.0-35.0); MCHC 31.2 g/dL (31.0-37.0); MCV 103.5 fL (80.0-100.0); Macrocytosis Marked; Mean Platelet Volume 13.3; Monocytes % (A) 10 %; Neutrophils # (A) 6.9 k/uL (1.3-7.7); Neutrophils % (A) 72 %; RBC 3.87 m/uL (3.80-5.40); RDW 21.8 % (11.5-15.5); WBC 9.5 k/uL (3.8-10.6)
[2023-07-06 09:29] LABS: ALT 575 U/L (4-34); AST 312 U/L (14-36); African American GFR (CKD) 51 (>60 ml/min/1.73 sqM); Albumin 3.5 g/dL (3.5-5.0); Alkaline Phosphatase 266 U/L (38-126); Anion Gap 7 mmol/L; Bilirubin, Conjugated 0.3 mg/dL (0.0-0.3); Bilirubin, Delta 0.9 mg/dL (0.0-0.2); Bilirubin,Unconjugated 3.9 mg/dL (0.0-1.1); Blood Urea Nitrogen 50 mg/dL (7-17); Calcium 8.4 mg/dL (8.4-10.2); Carbon Dioxide 29 mmol/L (22-30); Chloride 97 mmol/L (98-107); Glucose 151 mg/dL (74-99); Non-African American GFR(CKD) 44 (>60 ml/min/1.73 sqM); Potassium 3.8 mmol/L (3.5-5.1); Sodium 133 mmol/L (137-145); Total Bilirubin 5.1 mg/dL (0.2-1.3); Total Protein 5.8 g/dL (6.3-8.2)
[2023-07-06 09:34] LABS: Platelet Count 103 k/uL (150-450)
--- NOTE | 2023-07-06 10:52 | P.PN ---
Subjective Progress Note Date: 07/06/23 Consult reason: congestive heart failure History of present illness: History of present illness: This is an 87-year-old female patient of Dr. Marcelino with past medical history of atrial fibrillation, mitral regurgitation, hypertension, dyslipidemia. We have been asked to evaluate the patient for CHF. Patient states that she had a fall where she was trying to get out of a chair and fell backwards into the chair. There was no loss of consciousness. She states she has not been feeling well for a while. She had been sleeping in her chair all night. She denies having any chest pain or chest pressure. She states she has not been eating or drinking very much. She denies nausea and no abdominal pain. She did have some edema which is decreased. She has had a Hdez catheter placed. Shortness of breath is improved. Patient has been started on IV Lasix 40 mg daily by nephrology. Discussed that it seems atrial fibrillation seems to be exace rbating all of her other symptoms. Option of cardioversion was discussed with the patient and she is agreeable to move forward. EKG atrial fibrillation at a ventricular rate of 71 bpm Chest x-ray: Cardiomegaly, pulmonary vascular congestion and bilateral pleural effusion WBC 15, hemoglobin 12.7, platelet count 131. Sodium 135, potassium 4.5, chloride 94, CO2 26, BUN 51 creatinine 1.37. Liver function tests are elevated. Magnesium 2.0. TSH 0.771. Home cardiac medications: Eliquis 5 mg twice daily, flecainide 100 mg every 12 hours, Lasix 40 mg daily and 20 mg at 2 PM, Lopressor 100 mg every 12 hours, potassium chloride 10 mill equivalents daily Echocardiogram performed 06/05/2023 reveals EF of 50% - 55% moderate mitral regurgitation. Mild aortic regurgitation. Moderate tricuspid regurgitation. Mild pulmonary hypertension. 07/04 Patient is seen today in follow-up. She is up in a chair. She denies any lightheadedness or dizziness. Yesterday, she underwent cardioversion and she r emains in a sinus rhythm. She states she has not noticed a big difference but definitely better from before. Blood pressure 107/59, heart rate 51, pulse ox 95% on room air. Repeat blood work reveals sodium 131, potassium 4.2, BUN 53 creatinine 1.22. Liver function test remain elevated. Patient has been maintained on IV Lasix 40 mg daily by nephrology. Patient has a negative fluid balance. 07/05 Last night, patient was in slow sinus rythm in the 30s. This morning, she converted to afib in the 50s about 30 mins ago. Patient denies increased fatigue since she converted. She complains of a little cough this morning. No chest pain. Nephrology has changed IV lasix to oral. Blood pressure 106/66, pulse ox 96% on room air. Repeat blood work reveals hemoglobin 12.5. Sodium 138, potassium 3.8, BUN 50 and creatinine 1.12. Liver function test remain elevated but improving with AST of 312, ALT 575 and alkaline phosphatase 266. Carotid ultrasound reveals less than 50% carotid stenosis bilaterally. Physical examination: Gen: This is an 87-year-old female in no acute distress appears to be unwell. VS: reviewed HEENT: Head is atraumatic, normocephalic. Pupils equal, round. Sclerae is a nicteric. NECK: Supple. No JVD. LUNGS: Clear to auscultation. No intercostal retractions. HEART: Irregular rate and rhythm. No murmur. ABDOMEN: Soft No tenderness. EXTREMITIES: No pedal edema. No calf tenderness. NEUROLOGICAL: Patient is awake, alert and oriented x3. Assessment: Acute kidney injury Hyperkalemia Hyponatremia Metabolic acidosis Acute transaminitis Persistent atrial fibrillation status post synchronized cardioversion on 07/03, back in afib 07/05 Acute diastolic heart failure Mitral regurgitation Hypertension Dyslipidemia Plan: Continue patient's home cardiac medications Continue patient on po Lasix 40 mg daily per nephrology Monitor GRICELDA, daily weights, electrolytes and renal function May consider amiodarone if patient's liver function tests show improvement. Increase patient activity Continue telemetry monitoring Further recommendations to follow based upon clinical course Nurse practitioner note has been reviewed, I agree with documented findings and plan of care. Patient was seen and examined. Objective - Vital Signs Vital signs: Vital Signs Temp 97.9 F 07/06/23 03:52 Pulse 53 L 07/06/23 03:52 Resp 19 07/06/23 03:52 BP 98/61 07/06/23 03:52 Pulse Ox 96 07/06/23 03:52 FiO2 Intake & Output 07/05/23 07/06/23 07/06/23 18:59 06:59 18:59 Intake Total 236 0 Output Total 400 625 Balance -164 -625 Weight 56.5 kg Intake: Oral 236 0 Output: Urine 400 625 Other: Voiding Method Indwelling Catheter Indwelling Catheter - Labs CBC & Chem 7: 07/06/23 08:55 07/06/23 08:55 Labs: Abnormal Lab Results - Last 24 Hours (Table) 07/05/23 07/05/23 Range/Units 07:48 07:48 Sodium 131 L (137-145) mmol/L BUN 53 H (7-17) mg/dL Creatinine 1.22 H (0.52-1.04) mg/dL Glucose 110 H (74-99) mg/dL Calcium 8.3 L (8.4-10.2) mg/dL Total Bilirubin 5.4 H (0.2-1.3) mg/dL Conjugated Bilirubin 0.7 H (0.0-0.3) mg/dL Unconjugated Bilirubin 4.1 H (0.0-1.1) mg/dL Delta Bilirubin 0.6 H (0.0-0.2) mg/dL AST 564 H (14-36) U/L ALT 703 H (4-34) U/L Alkaline Phosphatase 295 H (38-126) U/L Total Protein 5.5 L (6.3-8.2) g/dL Albumin 3.3 L (3.5-5.0) g/dL Microbiology - Last 24 Hours (Table) 07/03/23 13:50 Blood Culture - Preliminary Blood 07/03/23 13:35 Blood Culture - Preliminary Blood
--- NOTE | 2023-07-06 11:57 | P.PN ---
Subjective Progress Note Date: 07/06/23 Patient seen in follow-up for MARSHA and hyponatremia. Feeling better and swelling continues to improve. Vital signs are stable. General: No acute distress. HEENT: Head exam is unremarkable. On nasal cannula. LUNGS: No audible rhonchi or wheezes. HEART: Rate and Rhythm are regular. ABDOMEN: Nontender. EXTREMITITES: Trace edema. Objective - Vital Signs Vital signs: Vital Signs Temp 97.7 F 07/06/23 08:00 Pulse 58 L 07/06/23 08:00 Resp 17 07/06/23 08:00 BP 106/66 07/06/23 08:00 Pulse Ox 96 07/06/23 08:00 FiO2 Intake & Output 07/05/23 07/06/23 07/06/23 18:59 06:59 18:59 Intake Total 236 0 Output Total 400 625 Balance -164 -625 Weight 56.5 kg Intake: Oral 236 0 Output: Urine 400 625 Other: Voiding Method Indwelling Catheter Indwelling Catheter Indwelling Catheter - Labs CBC & Chem 7: 07/06/23 08:55 07/06/23 08:55 Labs: Abnormal Lab Results - Last 24 Hours (Table) 07/05/23 07/06/23 07/06/23 Range/Units 07:48 08:55 08:55 MCV 103.5 H (80.0-100.0) fL RDW 21.8 H (11.5-15.5) % Plt Count 103 L (150-450) k/uL Macrocytosis Marked A Sodium 133 L (137-145) mmol/L Chloride 97 L (98-107) mmol/L BUN 50 H (7-17) mg/dL Creatinine 1.12 H (0.52-1.04) mg/dL Glucose 151 H (74-99) mg/dL Total Bilirubin 5.4 H 5.1 H (0.2-1.3) mg/dL Conjugated Bilirubin 0.7 H (0.0-0.3) mg/dL Unconjugated Bilirubin 4.1 H 3.9 H (0.0-1.1) mg/dL Delta Bilirubin 0.6 H 0.9 H (0.0-0.2) mg/dL AST 564 H 312 H (14-36) U/L ALT 703 H 575 H (4-34) U/L Alkaline Phosphatase 295 H 266 H (38-126) U/L Total Protein 5.5 L 5.8 L (6.3-8.2) g/dL Albumin 3.3 L (3.5-5.0) g/dL Microbiology - Last 24 Hours (Table) 07/03/23 13:50 Blood Culture - Preliminary Blood 07/03/23 13:35 Blood Culture - Preliminary Blood Assessment and Plan Plan: Assessment: 1. Acute kidney injury secondary to ATN secondary to cardiorenal syndrome. Creatinine peaked at 1.73 this admission and is 1.12 today. Baseline creatinine near 1. Renal US no hydronephrosis. 2. Acute on chronic diastolic CHF with moderate mitral and tricuspid regurgitation. 3. Fluid overload. 4. Hypervolemic hyponatremia. Urine sodium less than 20 and urine osmolality 425. 5. Hyperkalemia secondary to acute kidney injury, metabolic acidosis, as well as potassium supplementation. Improved with medical management. 6. Metabolic acidosis secondary to acute kidney injury. Plan: Transition to Lasix PO 40mg daily. OK to discontinue Hdez catheter. Encourage oral intake, particularly protein. Maintain 1200 cc fluid restriction. Clear for discharge form nephrology standpoint.
--- NOTE | 2023-07-06 12:52 | P.PN ---
Subjective Progress Note Date: 07/06/23 Principal diagnosis: Severe hyponatremia and acute on chronic diastolic congestive heart failure This is an 87-year-old female patient with a known history of osteoporosis, osteoarthritis, hyperlipidemia, hypertension and was recently hospitalized last month for new onset A-fib with RVR and congestive heart failure. She had been on Lasix for the past couple of weeks at 40 in the morning and 20 in the evening. She is anticoagulated with Eliquis. She presented back to the emergency room earlier today with progressive weakness and falling and unable to care for herself. Chest x-ray reveals cardiomegaly with pulmonary vascular congestion and bilateral pleural effusions. White count 17.1. Hemoglobin 13.7. Platelets 171. Sodium 119. Potassium 5.8. BUN 52. Creatinine 1.66. Glucose 123. AST 1133. ALT 868 viral screen negative. She is seen in consultation in the emergency department. She was being considered for possible ICU admission. She is currently sitting up on the stretcher. Awake and alert in no acute distress. She is somewhat slow to respond. Her family is at the bedside. She is maintaining good O2 saturations in the upper 90s on room air. She is afebrile. Hemodynamically stable. She received 500 cc of normal saline fluid bolus. She has normal saline at 50 MLS per hour. EKG reveals atrial fibrillation with a controlled ventricular response. Patient was reevaluated today on 07/03/2023, patient is looking much better today, remains on nasal cannula, but not in distress, patient was admitted with severe hyponatremia and a picture of acute on chronic diastolic congestive heart failure she was also noted to have acute kidney injury known to have history of severe mitral regurgitation and chronic diastolic congestive heart failure. Patient has been on diuretics recently for her congestive heart failure. Patient was seen by nephrology and she is getting diuresed, at the same time recommending fluid restriction down to 1200 cc/day sodium today is up to 125, patient came in with a sodium of 119, liver enzymes today are improving renal profile is improving initial creatinine was 1.73, today it is 1.37 patient did receive fluids on her initial presentation in the ER. Form of 0.9 normal saline chest x-ray continues to show evidence of bilateral pleural effusions left more so than right Reevaluate on 07/05/2023, patient is doing much better today, she underwent synchronized cardioversion yesterday by cardiology, and she converted to a sinus rhythm. Patient is feeling better, breathing easier, remains on diuretics in t he form of Lasix. Sodium is up to 131, basic metabolic profile is normal renal profile is improving and creatinine is down to 1.22 no liver enzymes noted today. PatientIs on room air, O2 sats is 94% Patient was reevaluated today on 07/06/2023, patient continues to do well, she is on room air, not in any distress. Her sodium has corrected nicely it is up to 133 today. Her renal functioning is improving steadily her electrolytes are normal, liver enzymes are significantly better today compared to liver enzymes on admission but nonetheless remain abnormal but improving steadily. Objective - Vital Signs Vital signs: Vital Signs Temp 97.7 F 07/06/23 08:00 Pulse 58 L 07/06/23 08:00 Resp 17 07/06/23 08:00 BP 106/66 07/06/23 08:00 Pulse Ox 96 07/06/23 08:00 FiO2 Intake & Output 07/05/23 07/06/23 07/06/23 18:59 06:59 18:59 Intake Total 236 0 240 Output Total 400 625 Balance -164 -625 240 Weight 56.5 kg Intake: Oral 236 0 240 Output: Urine 400 625 Other: Voiding Method Indwelling Catheter Indwelling Catheter Indwelling Catheter - Exam General: Revealed 87-year-old female in no distress, on room air HEAD: Normocephalic. EYES: Normal reaction of pupils, equal size. NOSE: Clear with pink turbinates. THROAT: No erythema or exudates. NECK: No masses, no JVD. CHEST: No chest wall deformity. LUNGS: Diminished breath sounds at the bases specially at the left base CVS: S1 and S2 normal with no audible murmur, regular rhythm noted. ABDOMEN: No hepatosplenomegaly, normal bowel sounds, no guarding or rigidity. SKIN: No rashes CENTRAL NERVOUS SYSTEM: Alert and oriented x 3 no gross focal deficit EXTREMITIES: Trace of bipedal edema no cyanosis - Labs CBC & Chem 7: 07/06/23 08:55 07/06/23 08:55 Labs: Abnormal Lab Results - Last 24 Hours (Table) 07/06/23 07/06/23 Range/Units 08:55 08:55 MCV 103.5 H (80.0-100.0) fL RDW 21.8 H (11.5-15.5) % Plt Count 103 L (150-450) k/uL Macrocytosis Marked A Sodium 133 L (137-145) mmol/L Chloride 97 L (98-107) mmol/L BUN 50 H (7-17) mg/dL Creatinine 1.12 H (0.52-1.04) mg/dL Glucose 151 H (74-99) mg/dL Total Bilirubin 5.1 H (0.2-1.3) mg/dL Unconjugated Bilirubin 3.9 H (0.0-1.1) mg/dL Delta Bilirubin 0.9 H (0.0-0.2) mg/dL AST 312 H (14-36) U/L ALT 575 H (4-34) U/L Alkaline Phosphatase 266 H (38-126) U/L Total Protein 5.8 L (6.3-8.2) g/dL Microbiology - Last 24 Hours (Table) 07/03/23 13:50 Blood Culture - Preliminary Blood 07/03/23 13:35 Blood Culture - Preliminary Blood Assessment and Plan Assessment: Impression: Severe hyponatremia most likely secondary to diuretics, based on the clinical history, patient has been taking diuretics and has not taken much orally although the patient does have history of chronic diastolic congestive heart failure and she does have bilateral pleural effusions on this admission nonetheless the patient is responding to treatment, History of chronic atrial fibrillation, patient is status post cardioversion on 07/03 presently in sinus rhythm. Chronic diastolic congestive heart failure, on diuretics Benign essential hypertension Acute kidney injury, possibly cardiorenal or could be related to diuretics, improving at present and renal functioning is steadily better. Acute transaminitis, improving steadily. Recommendation: Continue present supportive care measures Continue Lasix. No plans to perform left-sided thoracentesis Repeat chest x-ray on Friday Will continue to follow Time with Patient: Less than 30
--- NOTE | 2023-07-06 17:10 | P.PN ---
Subjective Progress Note Date: 07/06/23 87-year-old patient with history of A-fib, hypertension, hyperlipidemia, osteoporosis who was diagnosed with new onset of A-fib with RVR caused significant diastolic congestive heart failure with fluid overload was hospitalized in June 04 for 3 days for A-fib with RVR was quite symptomatic. She was evaluated by cardiology cardiology and scheduled elective cardioversion on 07/04/2023. She ended up in the emergency department 07/03/2023 because of severe Symptom consistent with generalized weakness fatigue tiredness lightheadedness with slight altered mental status her finding in the emergency department with EKG showing A-fib with pulse control in the 70s and 80s. Chest x-ray showed cardiomegaly with pulmonary vascular congestion and bilateral pleural effusion correlate with congestive heart failure. Laboratory value shows acute kidney injury with creatinine at 1.59 BUN 52 potassium was 6.1 and original sodium was 119 patient was diagnosed with severe hyponatremia and hyperkalemia with leukocytosis and transaminitis with AST 1153 ALT 868 alk phos 244 with normal ammonia level conjugated bilirubin 1.0 with unconjugated bilirubin at 4.2. BNP was 6800 troponin was normal lactic acid was 2.8. Patient admitted to the hospital for the severity of her hyponatremia at this point with significant abnormality with her lab value and also to be seen cardiology her cardioversion probably will be delayed at this point, there is an evidence space for acute kidney injury from her diuretics and probably transaminitis from the severity of her heart failure and as a pump failure with hypoperfusion. --Patient reports severe constipation and reporting no bowel movement for over a week Lab review shows sodium is improved to 131, potassium is 4.2; liver enzymes remain elevated but continue to trend down slowly --Patient remains on Lasix 40 mg IV daily; will continue to monitor electrolytes closely and supplement as needed --Will add lactulose 20 g p.o. twice daily with further recommendations to follow 07/06/2023 Patient is seen and evaluated in room at bedside; patient continues to complain of constipation Vital signs are reviewed and are stable with temperature of 97.7, pulse 58, respirations 17 and blood pressure 106/66 with O2 saturation 96% Lab review shows improved sodium at 133, potassium 3.8, BUNs/creatinine of 50/1.12 and blood glucose of 151, WBC of 9.5, hemoglobin of 12.5 and platelet count of 103; liver enzymes continue to trend down with total bilirubin remaining steady at 5.1, AST of 312 and ALT of 575; patient has had workup completed in the past for elevated liver enzymes which has been unremarkable; would recommend GI evaluation versus MRI/MRCP for further evaluation --Patient remains on Lasix 40 mg IV every 12 hours for CHF exacerbation; continues to diurese well We will continue to monitor renal function electrolytes and supplement as needed Objective - Vital Signs Vital signs: Vital Signs Temp 97.7 F 07/06/23 08:00 Pulse 58 L 07/06/23 08:00 Resp 17 07/06/23 08:00 BP 106/66 07/06/23 08:00 Pulse Ox 96 07/06/23 08:00 FiO2 Intake & Output 07/05/23 07/06/23 07/06/23 18:59 06:59 18:59 Intake Total 236 0 240 Output Total 400 625 Balance -164 -625 240 Weight 56.5 kg Intake: Oral 236 0 240 Output: Urine 400 625 Other: Voiding Method Indwelling Catheter Indwelling Catheter Indwelling Catheter - Exam Neck HEENT: Supple, no lymphadenopathy, no thyroid enlargement, no carotid bruits. Lungs: Decreased breath sound bilaterally with fine rhonchi positive mild crackles in the bases spasmodics breath or wheezes. Chest Wall: Decreased expansion with deep inspiration especially in the right base, no tenderness and no deformity was found on exam, no costochondral pain or discomfort. There is a slight jaundice color on the surface part of the chest wall area. Heart: Irregular rate and rhythm, S1, S2 positive S3, positive jugular vein distention, positive systolic murmur with tachycardia of 140 bpm. Back: Symmetric, no curvature, ROM normal, no CVA tenderness. Abdomen: Soft, non-tender, bowel sounds active all four quadrants, no masses, significant hepatomegaly. Extremities: Extremities normal, atraumatic, no cyanosis or edema. Pulses: 2+ and symmetric. Skin: Jaundice with normal texture otherwise. Neurologic: Alert oriented x3 cranial nerves II through XII intact, no motor deficit, no abnormal balance or gait. - Labs CBC & Chem 7: 07/06/23 08:55 07/06/23 08:55 Labs: Abnormal Lab Results - Last 24 Hours (Table) 07/05/23 07/06/23 07/06/23 Range/Units 07:48 08:55 08:55 MCV 103.5 H (80.0-100.0) fL RDW 21.8 H (11.5-15.5) % Plt Count 103 L (150-450) k/uL Macrocytosis Marked A Sodium 133 L (137-145) mmol/L Chloride 97 L (98-107) mmol/L BUN 50 H (7-17) mg/dL Creatinine 1.12 H (0.52-1.04) mg/dL Glucose 151 H (74-99) mg/dL Total Bilirubin 5.4 H 5.1 H (0.2-1.3) mg/dL Conjugated Bilirubin 0.7 H (0.0-0.3) mg/dL Unconjugated Bilirubin 4.1 H 3.9 H (0.0-1.1) mg/dL Delta Bilirubin 0.6 H 0.9 H (0.0-0.2) mg/dL AST 564 H 312 H (14-36) U/L ALT 703 H 575 H (4-34) U/L Alkaline Phosphatase 295 H 266 H (38-126) U/L Total Protein 5.5 L 5.8 L (6.3-8.2) g/dL Albumin 3.3 L (3.5-5.0) g/dL Microbiology - Last 24 Hours (Table) 07/03/23 13:50 Blood Culture - Preliminary Blood 07/03/23 13:35 Blood Culture - Preliminary Blood Assessment and Plan Assessment: 1. Severe hyponatremia: Most likely the effect of the diuretics and SIADH: Sodium level slowly trending up and is at 131 this morning 2. Acute kidney injury with most likely acute tubular necrosis with possibility of cardiorenal syndrome, continue hydration watch symptoms carefully. Creatinine continues to improve slowly 3. Metabolic acidosis: Secondary to acute kidney injury continue to treat underlying disease. 4. Hyperkalemia: With the severity of her acute kidney injury patient will have smaller dose of Lokelma 5 mg one-time. Potassium within normal limit at 4.2 t his morning 5. Acute transaminitis: Repeat ultrasound again waiting for GI consult eventually. Hepatic ultrasound is significant for hepatic steatosis; liver enzymes are being monitored and are continuing to Trend down 6. Acute diastolic congestive heart failure: Lasix 40 mg IV daily; monitor s trict GRICELDA's, daily weights, low-salt and fluid restricted diet 7. New onset atrial fibrillation with RVR; patient is status post cardioversion and converted to normal sinus rhythm 8. Hypertension: Has been on metoprolol resume medication. Will benefit from a smaller dose of ARB. 9. Mild altered mental status: Most likely from the severity of her hyponatremia treat underlying disease hopefully mentation will go back to normal. 10. Hyperlipidemia: Was supposed to be on smaller dose of atorvastatin. DVT prophylaxis: Patient is on anticoagulation at this point. CODE STATUS; DNR
--- NOTE | 2023-07-07 09:02 | P.PN ---
Subjective Progress Note Date: 07/07/23 Consult reason: congestive heart failure History of present illness: History of present illness: This is an 87-year-old female patient of Dr. Marcelino with past medical history of atrial fibrillation, mitral regurgitation, hypertension, dyslipidemia. We have been asked to evaluate the patient for CHF. Patient states that she had a fall where she was trying to get out of a chair and fell backwards into the chair. There was no loss of consciousness. She states she has not been feeling well for a while. She had been sleeping in her chair all night. She denies having any chest pain or chest pressure. She states she has not been eating or drinking very much. She denies nausea and no abdominal pain. She did have some edema which is decreased. She has had a Hdez catheter placed. Shortness of breath is improved. Patient has been started on IV Lasix 40 mg daily by nephrology. Discussed that it seems atrial fibrillation seems to be exace rbating all of her other symptoms. Option of cardioversion was discussed with the patient and she is agreeable to move forward. EKG atrial fibrillation at a ventricular rate of 71 bpm Chest x-ray: Cardiomegaly, pulmonary vascular congestion and bilateral pleural effusion WBC 15, hemoglobin 12.7, platelet count 131. Sodium 135, potassium 4.5, chloride 94, CO2 26, BUN 51 creatinine 1.37. Liver function tests are elevated. Magnesium 2.0. TSH 0.771. Home cardiac medications: Eliquis 5 mg twice daily, flecainide 100 mg every 12 hours, Lasix 40 mg daily and 20 mg at 2 PM, Lopressor 100 mg every 12 hours, potassium chloride 10 mill equivalents daily Echocardiogram performed 06/05/2023 reveals EF of 50% - 55% moderate mitral regurgitation. Mild aortic regurgitation. Moderate tricuspid regurgitation. Mild pulmonary hypertension. 07/04 Patient is seen today in follow-up. She is up in a chair. She denies any lightheadedness or dizziness. Yesterday, she underwent cardioversion and she r emains in a sinus rhythm. She states she has not noticed a big difference but definitely better from before. Blood pressure 107/59, heart rate 51, pulse ox 95% on room air. Repeat blood work reveals sodium 131, potassium 4.2, BUN 53 creatinine 1.22. Liver function test remain elevated. Patient has been maintained on IV Lasix 40 mg daily by nephrology. Patient has a negative fluid balance. 07/05 Last night, patient was in slow sinus rythm in the 30s. This morning, she converted to afib in the 50s about 30 mins ago. Patient denies increased fatigue since she converted. She complains of a little cough this morning. No chest pain. Nephrology has changed IV lasix to oral. Blood pressure 106/66, pulse ox 96% on room air. Repeat blood work reveals hemoglobin 12.5. Sodium 138, potassium 3.8, BUN 50 and creatinine 1.12. Liver function test remain elevated but improving with AST of 312, ALT 575 and alkaline phosphatase 266. Carotid ultrasound reveals less than 50% carotid stenosis bilaterally. 07/06 Patient is seen today in follow-up on the [facility] floor. She complains of a cough. No chest pain or pressure. She denies dizziness but has not been out of bed today. No palpitations. No nausea. She does state that she has a decreased appetite. Patient remains in atrial fibrillation with rate control. Blood pressure 115/71, pulse ox 92% on room air. Physical examination: Gen: This is an 87-year-old female in no acute distress appears to be unwell. VS: reviewed HEENT: Head is atraumatic, normocephalic. Pupils equal, round. Sclerae is anicteric. NECK: Supple. No JVD. LUNGS: Clear to auscultation. No intercostal retractions. HEART: Irregular rate and rhythm. ABDOMEN: Soft No tenderness. EXTREMITIES: No pedal edema. No calf tenderness. NEUROLOGICAL: Patient is awake, alert and oriented x3. Assessment: Acute kidney injury Hyperkalemia Hyponatremia Metabolic acidosis Acute transaminitis Persistent atrial fibrillation status post synchronized cardioversion on 07/03, back in afib 07/05 Acute diastolic heart failure Mitral regurgitation Hypertension Dyslipidemia Plan: Continue patient's home cardiac medications Continue patient on po Lasix 40 mg daily per nephrology Monitor GRICELDA, daily weights, electrolytes and renal function May consider amiodarone if patient's liver function tests show improvement. Increase patient activity Continue telemetry monitoring No plan for any further intervention by cardiology at this time. Patient is cleared for discharge and may follow-up with Dr. Marcelino in the office in 1 to 2 weeks. Nurse practitioner note has been reviewed, I agree with documented findings and plan of care. Patient was seen and examined. Objective - Vital Signs Vital signs: Vital Signs Temp 97.4 F L 07/07/23 02:00 Pulse 78 07/07/23 02:00 Resp 16 07/07/23 02:00 BP 115/71 07/07/23 02:00 Pulse Ox 90 L 07/07/23 02:00 FiO2 Intake & Output 07/06/23 07/07/23 07/07/23 18:59 06:59 18:59 Intake Total 720 Balance 720 Intake: Oral 720 Other: Voiding Method Indwelling Catheter Indwelling Catheter # Voids 1 4 - Labs CBC & Chem 7: 07/06/23 08:55 07/06/23 08:55 Labs: Abnormal Lab Results - Last 24 Hours (Table) 07/06/23 07/06/23 Range/Units 08:55 08:55 MCV 103.5 H (80.0-100.0) fL RDW 21.8 H (11.5-15.5) % Plt Count 103 L (150-450) k/uL Macrocytosis Marked A Sodium 133 L (137-145) mmol/L Chloride 97 L (98-107) mmol/L BUN 50 H (7-17) mg/dL Creatinine 1.12 H (0.52-1.04) mg/dL Glucose 151 H (74-99) mg/dL Total Bilirubin 5.1 H (0.2-1.3) mg/dL Unconjugated Bilirubin 3.9 H (0.0-1.1) mg/dL Delta Bilirubin 0.9 H (0.0-0.2) mg/dL AST 312 H (14-36) U/L ALT 575 H (4-34) U/L Alkaline Phosphatase 266 H (38-126) U/L Total Protein 5.8 L (6.3-8.2) g/dL Microbiology - Last 24 Hours (Table) 07/03/23 13:50 Blood Culture - Preliminary Blood 07/03/23 13:35 Blood Culture - Preliminary Blood
--- NOTE | 2023-07-07 11:56 | P.PN ---
Subjective Progress Note Date: 07/07/23 This is an 87-year-old female patient with a known history of osteoporosis, osteoarthritis, hyperlipidemia, hypertension and was recently hospitalized last month for new onset A-fib with RVR and congestive heart failure. She had been on Lasix for the past couple of weeks at 40 in the morning and 20 in the evening. She is anticoagulated with Eliquis. She presented back to the emergency room earlier today with progressive weakness and falling and unable to care for herself. Chest x-ray reveals cardiomegaly with pulmonary vascular congestion and bilateral pleural effusions. White count 17.1. Hemoglobin 13.7. Platelets 171. Sodium 119. Potassium 5.8. BUN 52. Creatinine 1.66. Glucose 123. AST 1133. ALT 868 viral screen negative. She is seen in consultation in the emergency department. She was being considered for possible ICU admission. She is currently sitting up on the stretcher. Awake and alert in no acute distress. She is somewhat slow to respond. Her family is at the bedside. She is maintaining good O2 saturations in the upper 90s on room air. She is afebrile. Hemodynamically stable. She received 500 cc of normal saline fluid bolus. She has normal saline at 50 MLS per hour. EKG reveals atrial fibrillation with a controlled ventricular response. Patient was reevaluated today on 07/03/2023, patient is looking much better today, remains on nasal cannula, but not in distress, patient was admitted with severe hyponatremia and a picture of acute on chronic diastolic congestive heart failure she was also noted to have acute kidney injury known to have history of severe mitral regurgitation and chronic diastolic congestive heart failure. Patient has been on diuretics recently for her congestive heart failure. Patient was seen by nephrology and she is getting diuresed, at the same time recommending fluid restriction down to 1200 cc/day sodium today is up to 125, patient came in with a sodium of 119, liver enzymes today are improving renal profile is improving initial creatinine was 1.73, today it is 1.37 patient did receive fluids on her initial presentation in the ER. Form of 0.9 normal saline chest x-ray continues to show evidence of bilateral pleural effusions left more so than right Reevaluate on 07/05/2023, patient is doing much better today, she underwent synchronized cardioversion yesterday by cardiology, and she converted to a sinus rhythm. Patient is feeling better, breathing easier, remains on diuretics in the form of Lasix. Sodium is up to 131, basic metabolic profile is normal renal profile is improving and creatinine is down to 1.22 no liver enzymes noted today. PatientIs on room air, O2 sats is 94% Patient was reevaluated today on 07/06/2023, patient continues to do well, she is on room air, not in any distress. Her sodium has corrected nicely it is up to 133 today. Her renal functioning is improving steadily her electrolytes are normal, liver enzymes are significantly better today compared to liver enzymes on admission but nonetheless remain abnormal but improving steadily. The patient is seen today July 07, 2023 in follow-up on the regular medical floor. She is currently awake and alert in no acute distress. She is maintaining good O2 saturations in the 90s on room air. Her recent sodium is 133. Blood cultures revealed no growth. No new labs today. She remains on oral diuretics. Anticoagulated with Eliquis Objective - Vital Signs Vital signs: Vital Signs Temp 97.7 F 07/07/23 08:00 Pulse 77 07/07/23 08:00 Resp 18 07/07/23 08:00 BP 124/73 07/07/23 08:00 Pulse Ox 92 L 07/07/23 08:06 FiO2 Intake & Output 07/06/23 07/07/23 07/07/23 18:59 06:59 18:59 Intake Total 720 237 Balance 720 237 Intake: Oral 720 237 Other: Voiding Method Indwelling Catheter Indwelling Catheter # Voids 1 4 - Exam GENERAL EXAM: Alert, pleasant 87-year-old female, on room air, comfortable in no apparent distress. HEAD: Normocephalic. EYES: Normal reaction of pupils, equal size. NOSE: Clear with pink turbinates. THROAT: No erythema or exudates. NECK: No masses, no JVD. CHEST: No chest wall deformity. LUNGS: Equal air entry with no crackles, wheeze, rhonchi or dullness. Diminished left base. CVS: S1 and S2 normal with no audible murmur, regular rhythm. ABDOMEN: No hepatosplenomegaly, normal bowel sounds, no guarding or rigidity. SPINE: No scoliosis or deformity SKIN: No rashes CENTRAL NERVOUS SYSTEM: No focal deficits, tone is normal in all 4 extremities. EXTREMITIES: There is no peripheral edema. No clubbing, no cyanosis. Peripheral pulses are intact. - Labs CBC & Chem 7: 07/06/23 08:55 07/06/23 08:55 Labs: Microbiology - Last 24 Hours (Table) 07/03/23 13:50 Blood Culture - Preliminary Blood 07/03/23 13:35 Blood Culture - Preliminary Blood Assessment and Plan Assessment: Generalized weakness with falls secondary to hyponatremia and dehydration Acute kidney injury secondary to dehydration and poor oral intake, recently on diuretics Hyperkalemia secondary to above, recovered Hyponatremia secondary to above, improved currently 133 Transaminitis, trending down Leukocytosis, recovered Recent admission for atrial fibrillation with rapid ventricular response currently in a controlled rate, anticoagulated with Eliquis History of diastolic congestive heart failure History of osteoarthritis Plan: The patient was seen and evaluated Medications reviewed Currently stable and on room air Plan is for subacute rehab at discharge This patient was seen independently by the pulmonary nurse practitioner addressing pulmonary issues I have personally seen and examined the patient, performed the documentation and the assessment and plan as written. Number of minutes spent on the visit: 24.
--- NOTE | 2023-07-07 12:30 | P.PN ---
Subjective patient is seen for follow-up for acute kidney injury and hyponatremia. Overall feeling better. Complaining of constipation today. serum sodium 133 yesterday. Labs are pending from today. Serum creatinine decreased to 1.1 yesterday. Objective - Vital Signs Vital signs: Vital Signs Temp 97.7 F 07/07/23 08:00 Pulse 77 07/07/23 08:00 Resp 18 07/07/23 08:00 BP 124/73 07/07/23 08:00 Pulse Ox 92 L 07/07/23 08:06 FiO2 Intake & Output 07/06/23 07/07/23 07/07/23 18:59 06:59 18:59 Intake Total 720 237 Balance 720 237 Intake: Oral 720 237 Other: Voiding Method Indwelling Catheter Indwelling Catheter # Voids 1 4 - Exam patient is awake, comfortable, no acute distress. 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 Acute kidney injury secondary to ATN secondary to cardiorenal syndrome. Creatinine peaked at 1.73 this admission and is 1.12 yesterday. Baseline creatinine near 1. Renal US no hydronephrosis. 2. Acute on chronic diastolic CHF with moderate mitral and tricuspid regurgitation. 3. Fluid overload. 4. Hypervolemic hyponatremia. Urine sodium less than 20 and urine osmolality 425. 5. Hyperkalemia secondary to acute kidney injury, metabolic acidosis, as well as potassium supplementation. Improved with medical management. 6. Metabolic acidosis secondary to acute kidney injury. Plan: continue with salt and fluid restriction Continue with oral Lasix Repeat labs as outpatient in about 4-5 days.
[2023-07-07 12:55] LABS: ALT 419 U/L (8-44); AST 171 U/L (13-35); Albumin 3.6 g/dL (3.8-4.9); Albumin/Globulin Ratio 2.12 Ratio (1.60-3.17); Alkaline Phosphatase 248 U/L (41-126); Bilirubin, Conjugated 0.84 mg/dL (0.20-0.40); Bilirubin,Unconjugated 2.66 mg/dL (0.20-1.00); Blood Urea Nitrogen 30.2 mg/dL (9.0-27.0); Calcium 8.7 mg/dL (8.7-10.3); Carbon Dioxide 25.9 mmol/L (21.6-31.8); Chloride 99 mmol/L (96-109); Globulin 1.7 g/dL (1.6-3.3); Glucose 97 mg/dL (70-110); Potassium 4.6 mmol/L (3.5-5.5); Sodium 138 mmol/L (135-145); Total Bilirubin 3.5 mg/dL (0.3-1.2); Total Protein 5.3 g/dL (6.2-8.2)
--- NOTE | 2023-07-07 13:39 | P.PN ---
Subjective Progress Note Date: 07/07/23 HISTORY OF PRESENT ILLNESS: 87-year-old office patient with active medical history of A-fib, hypertension, hyperlipidemia, osteoporosis who was diagnosed with new onset of A-fib with RVR caused significant diastolic congestive heart failure with fluid overload was hospitalized in June 04 for 3 days for A-fib with RVR was quite symptomatic. She mated to the emergency department after her discharge 1 time she seen cardiology and scheduled elective cardioversion on 07/04/2023. Patient currently to have significant sign and symptom of mild worsening shortness of breath dyspnea fluid overload with significant PND orthopnea palpitation ended up seeing in our office and seen cardiology and the plan again to keep that date for cardioversion for tomorrow. She ended up in the emergency department today 07/03/2023 because of severe Symptom consistent with generalized weakness fatigue tiredness lightheadedness with slight altered mental status her finding in the emergency department with EKG showing A-fib with pulse control in the 70s and 80s. Chest x-ray showed car diomegaly with pulmonary vascular congestion and bilateral pleural effusion correlate with congestive heart failure. Surprisingly laboratory value shows acute kidney injury with creatinine at 1.59 BUN 52 potassium was 6.1 and original sodium was 119 patient was diagnosed with severe hyponatremia and hyperkalemia with leukocytosis and transaminitis with AST 1153 ALT 868 alk phos 244 with normal ammonia level conjugated bilirubin 1.0 with unconjugated bilirubin at 4.2. BNP was 6800 troponin was normal lactic acid was 2.8. Patient be admitted to the hospital for the severity of her hyponatremia at this point with significant abnormality with her lab value and also to be seen cardiology her cardioversion probably will be delayed at this point, there is an evidence space for acute kidney injury from her diuretics and probably transaminitis from the severity of her heart failure and as a pump failure with hypoperfusion. 07/04/2023: Liver function test are still quite good off in the thousand with an AST and ALT total bilirubin still mildly elevated. Might do liver ultrasound patient eventually will need to see pathologist. Awaiting for nephrology today to see patient and still has not seen cardiology yet with the plan to have patient go for cardioversion today scheduled as an outpatient but pulse rate has been running in the 60s and 70s might not require cardioversion in the first place. 07/08/2023: The patient had cardioversion on Friday by cardiology had felt slightly better she is converted to sinus rhythm with oxygenation is much better and improving creatinine. Her sodium yesterday is up to 133 electrolytes are much better. Patient weight went down from 60 kg to 56 kg within a few days. Sodium improved significantly, her liver enzymes continue to improve with her pulse being more regular. She had cardioversion on Friday and ended up flipping into A-fib on Friday the pulse rate still well-controlled. Sodium and electrolyte are much better, her liver enzyme has improved significantly but still not close to normal. Patient mobility significantly decreased require probably help with SNF and rehab. REVIEW OF SYSTEMS: CONSTITUTIONAL: Elderly does not look in any respiratory distress. EYES: No icterus sclerae, no conjunctivitis. EARS, NOSE, MOUTH, THROAT, and FACE: No sore throat, lymphadenopathy, carotid bruits or deformity. RESPIRATORY: Positive shortness of breath cough wheezes. CARDIOVASCULAR: Positive PND orthopnea palpitation no angina. GASTROINTESTINAL: No Abd pain, Nausea or vomiting, no Diarrhea or constipation, No GI Bleed, no distention or masses. GENITOURINARY: Negative for Hematuria or UTI, no kidney stones. INTEGUMENT/BREAST: Negative for any muscular injury with mild osteoarthritis.. HEMATOLOGIC/LYMPHATIC: Negative for bleed or purpura. MUSCULOSKELTAL: Generalized muscle and joint pain. NEURLOGICAL: No LOC, Sz or syncope, blurred vision dizziness or abnormality.. BEHAVIORAL/PSYCH: Negative. ENDOCRINE: Negative. PHYSICAL EXAMINATION: General Appearance: Alert, cooperative, no distress, appears stated age. Neck HEENT: Supple, no lymphadenopathy, no thyroid enlargement, no carotid bruits. Lungs: Decreased breath sound bilaterally with fine rhonchi positive mild crackles in the bases spasmodics breath or wheezes. Chest Wall: Decreased expansion with deep inspiration especially in the right base, no tenderness and no deformity was found on exam, no costochondral pain or discomfort. There is a slight jaundice color on the surface part of the chest wall area. Heart: Irregular rate and rhythm, S1, S2 positive S3, positive jugular vein distention, positive systolic murmur with tachycardia of 140 bpm. Back: Symmetric, no curvature, ROM normal, no CVA tenderness. Abdomen: Soft, non-tender, bowel sounds active all four quadrants, no masses, significant hepatomegaly. Extremities: Extremities normal, atraumatic, no cyanosis or edema. Pulses: 2+ and symmetric. Skin: Jaundice with normal texture otherwise. Neurologic: Alert oriented x3 cranial nerves II through XII intact, no motor deficit, no abnormal balance or gait. ASSESSMENT AND PLAN: _Severe hyponatremia: Most likely volume expansion from her CHF much better so far on current treatment management sodium is up to 135. _New onset of A-fib with rapid ventricular response had responded quite bit lately to the current antiarrhythmic, she ended up having cardioversion on Friday with back into A-fib again with pulse rates under control on Friday and Friday. _Significant fluid overload with congestive heart failure with mild A-fib cardiomyopathy, continue again with diuretics to watch kidney function carefully. _Acute kidney injury with most likely acute tubular necrosis with possibility of cardiorenal syndrome, improving kidney function is close to normal. _Metabolic acidosis: Secondary to acute kidney injury continue to treat underlying disease. _Hyperkalemia: With the severity of her acute kidney injury patient will have smaller dose of Lokelma 5 mg one-time. _Acute transaminitis: Repeat ultrasound again waiting for GI consult eventually. _Acute diastolic congestive heart failure: Most likely with worsening symptoms causing more fluid overload will require probably a little bit more aggressive diuretics management. _Leukocytosis: Most likely reactive leukocytosis we will continue to watch for any secondary infection repeat CBC again. _Hypertension: Has been on metoprolol resume medication. Will benefit from a smaller dose of ARB. _Mild altered mental status: Most likely from the severity of her hyponatremia treat underlying disease hopefully mentation will go back to normal. _Hyperlipidemia: Was supposed to be on smaller dose of atorvastatin. _GI prophylaxis: Patient be on Pepcid 20 mg daily. _DVT prophylaxis: Patient is on anticoagulation at this point. Prognosis: Fair. Objective - Vital Signs Vital signs: Vital Signs Temp 97.4 F L 07/07/23 02:00 Pulse 78 07/07/23 02:00 Resp 16 07/07/23 02:00 BP 115/71 07/07/23 02:00 Pulse Ox 90 L 07/07/23 02:00 FiO2 Intake & Output 07/06/23 07/06/23 07/07/23 06:59 18:59 06:59 Intake Total 0 720 Output Total 625 Balance -625 720 Weight 56.5 kg Intake: Oral 0 720 Output: Urine 625 Other: Voiding Method Indwelling Catheter Indwelling Catheter Indwelling Catheter # Voids 1 4 - Labs CBC & Chem 7: 07/06/23 08:55 07/07/23 06:08 Labs: Abnormal Lab Results - Last 24 Hours (Table) 07/06/23 07/06/23 Range/Units 08:55 08:55 MCV 103.5 H (80.0-100.0) fL RDW 21.8 H (11.5-15.5) % Plt Count 103 L (150-450) k/uL Macrocytosis Marked A Sodium 133 L (137-145) mmol/L Chloride 97 L (98-107) mmol/L BUN 50 H (7-17) mg/dL Creatinine 1.12 H (0.52-1.04) mg/dL Glucose 151 H (74-99) mg/dL Total Bilirubin 5.1 H (0.2-1.3) mg/dL Unconjugated Bilirubin 3.9 H (0.0-1.1) mg/dL Delta Bilirubin 0.9 H (0.0-0.2) mg/dL AST 312 H (14-36) U/L ALT 575 H (4-34) U/L Alkaline Phosphatase 266 H (38-126) U/L Total Protein 5.8 L (6.3-8.2) g/dL Microbiology - Last 24 Hours (Table) 07/03/23 13:50 Blood Culture - Preliminary Blood 07/03/23 13:35 Blood Culture - Preliminary Blood
--- NOTE | 2023-07-07 13:42 | P.DS ---
Providers Date of admission: 07/03/23 13:55 Attending physician: Esau Wiley Consults: 07/03/23 12:23 Consult Physician Routine Consulting Provider: Stanely Morrison Consult Reason/Comments: chf Do you want consulting provider notified?: Yes 07/03/23 13:24 Consult Physician Routine Consulting Provider: Enrico Murillo Consult Reason/Comments: hyponatremia Do you want consulting provider notified?: Yes Primary care physician: [facility] Course: HISTORY OF PRESENT ILLNESS: 87-year-old office patient with active medical history of A-fib, hypertension, hyperlipidemia, osteoporosis who was diagnosed with new onset of A-fib with RVR caused significant diastolic congestive heart failure with fluid overload was hospitalized in June 04 for 3 days for A-fib with RVR was quite symptomatic. She mated to the emergency department after her discharge 1 time she seen cardiology and scheduled elective cardioversion on 07/04/2023. Patient currently to have significant sign and symptom of mild worsening shortness of breath dyspnea fluid overload with significant PND orthopnea palpitation ended up seeing in our office and seen cardiology and the plan again to keep that date for cardioversion for tomorrow. She ended up in the emergency department today 07/03/2023 because of severe Symptom consistent with generalized weakness fatigue tiredness lightheadedness with slight altered mental status her finding in the emergency department with EKG showing A-fib with pulse control in the 70s and 80s. Chest x-ray showed cardiomegaly with pulmonary vascular congestion and bilateral pleural effusion correlate with congestive heart failure. Surprisingly laboratory value shows acute kidney injury with creatinine at 1.59 BUN 52 potassium was 6.1 and original sodium was 119 patient was diagnosed with severe hyponatremia and hyperkalemia with leukocytosis and transaminitis with AST 1153 ALT 868 alk phos 244 with normal ammonia level conjugated bilirubin 1.0 with unconjugated bilirubin at 4.2. BNP was 6800 troponin was normal lactic acid was 2.8. Patient be admitted to the hospital for the severity of her hyponatremia at this point with significant abnormality with her lab value and also to be seen cardiology her cardioversion probably will be delayed at this point, there is an evidence space for acute kidney injury from her diuretics and probably transaminitis from the severity of her heart failure and as a pump failure with hypoperfusion. 07/04/2023: Liver function test are still quite good off in the thousand with an AST and ALT total bilirubin still mildly elevated. Might do liver ultrasound patient eventually will need to see pathologist. Awaiting for nephrology today to see patient and still has not seen cardiology yet with the plan to have patient go for cardioversion today scheduled as an outpatient but pulse rate has been running in the 60s and 70s might not require cardioversion in the first place. 07/08/2023: The patient had cardioversion on Friday by cardiology had felt slightly better she is converted to sinus rhythm with oxygenation is much better and improving creatinine. Her sodium yesterday is up to 133 electrolytes are much better. Patient weight went down from 60 kg to 56 kg within a few days. Sodium improved significantly, her liver enzymes continue to improve with her pulse being more regular. She had cardioversion on Friday and ended up flipping into A-fib on Friday the pulse rate still well-controlled. Sodium and electrolyte are much better, her liver enzyme has improved significantly but still not close to normal. Patient mobility significantly decreased require probably help with SNF and rehab. REVIEW OF SYSTEMS: CONSTITUTIONAL: Elderly does not look in any respiratory distress. EYES: No icterus sclerae, no conjunctivitis. EARS, NOSE, MOUTH, THROAT, and FACE: No sore throat, lymphadenopathy, carotid bruits or deformity. RESPIRATORY: Positive shortness of breath cough wheezes. CARDIOVASCULAR: Positive PND orthopnea palpitation no angina. GASTROINTESTINAL: No Abd pain, Nausea or vomiting, no Diarrhea or constipation, No GI Bleed, no distention or masses. GENITOURINARY: Negative for Hematuria or UTI, no kidney stones. INTEGUMENT/BREAST: Negative for any muscular injury with mild osteoarthritis.. HEMATOLOGIC/LYMPHATIC: Negative for bleed or purpura. MUSCULOSKELTAL: Generalized muscle and joint pain. NEURLOGICAL: No LOC, Sz or syncope, blurred vision dizziness or abnormality.. BEHAVIORAL/PSYCH: Negative. ENDOCRINE: Negative. PHYSICAL EXAMINATION: General Appearance: Alert, cooperative, no distress, appears stated age. Neck HEENT: Supple, no lymphadenopathy, no thyroid enlargement, no carotid bruits. Lungs: Decreased breath sound bilaterally with fine rhonchi positive mild crackles in the bases spasmodics breath or wheezes. Chest Wall: Decreased expansion with deep inspiration especially in the right base, no tenderness and no deformity was found on exam, no costochondral pain or discomfort. There is a slight jaundice color on the surface part of the chest wall area. Heart: Irregular rate and rhythm, S1, S2 positive S3, positive jugular vein distention, positive systolic murmur with tachycardia of 140 bpm. Back: Symmetric, no curvature, ROM normal, no CVA tenderness. Abdomen: Soft, non-tender, bowel sounds active all four quadrants, no masses, significant hepatomegaly. Extremities: Extremities normal, atraumatic, no cyanosis or edema. Pulses: 2+ and symmetric. Skin: Jaundice with normal texture otherwise. Neurologic: Alert oriented x3 cranial nerves II through XII intact, no motor deficit, no abnormal balance or gait. ASSESSMENT AND PLAN: _Severe hyponatremia: Most likely volume expansion from her CHF much better so far on current treatment management sodium is up to 135. _New onset of A-fib with rapid ventricular response had responded quite bit lately to the current antiarrhythmic, she ended up having cardioversion on Friday with back into A-fib again with pulse rates under control on Friday and Friday. _Significant fluid overload with congestive heart failure with mild A-fib cardiomyopathy, continue again with diuretics to watch kidney function carefully. _Acute kidney injury with most likely acute tubular necrosis with possibility of cardiorenal syndrome, improving kidney function is close to normal. _Metabolic acidosis: Secondary to acute kidney injury continue to treat underlying disease. _Hyperkalemia: With the severity of her acute kidney injury patient will have smaller dose of Lokelma 5 mg one-time. _Acute transaminitis: Repeat ultrasound again waiting for GI consult eventually. _Acute diastolic congestive heart failure: Most likely with worsening symptoms causing more fluid overload will require probably a little bit more aggressive diuretics management. _Leukocytosis: Most likely reactive leukocytosis we will continue to watch for any secondary infection repeat CBC again. _Hypertension: Has been on metoprolol resume medication. Will benefit from a smaller dose of ARB. _Mild altered mental status: Most likely from the severity of her hyponatremia treat underlying disease hopefully mentation will go back to normal. _Hyperlipidemia: Was supposed to be on smaller dose of atorvastatin. _GI prophylaxis: Patient be on Pepcid 20 mg daily. _DVT prophylaxis: Patient is on anticoagulation at this point. Prognosis: Fair. Hospital course: Patient was admitted to the hospital on 07/03/2023 with generalized weakness fatigue tiredness lightheadedness with significant altered mental status, found to have severe hyponatremia with sodium down to 118 with acute kidney injury with creatinine up to 1.59 and bun 52 potassium of 6.1. Patient BNP was 6800 troponin was normal lactic acid was 2.8. Patient transaminitis including her liver function tests were extremely high the time and most likely from hypoperfusion with no sign of hepatitis CT and ultrasound did not show any major abnormality in the liver at the time. Patient ended up seeing nephrology and cardiology with nephrology her sodium improved significantly with improving kidney function over time with hydration has done quite well also with diuretics made a huge difference on her water retention. Cardiology undergoing cardioversion on Friday which corrected her A-fib for short period of time into sinus rhythm and end up going back into A-fib afterwards. Remain on anticoagulation and still on beta-tiffany doing much be tter on medication. Her mobility still significantly decreased at this point and patient requiring bit more help balance and gait is not the best. Patient will be doing physical therapy and rehab will be [facility] the [facility] for at least the next 2 weeks. Time spent on patient discharge was over 35 minutes. Patient Condition at Discharge: Fair Plan - Discharge Summary Discharge Rx Participant: No New Discharge Prescriptions: New Metoprolol Tartrate [Lopressor] 50 mg PO Q12H #60 tab Lactulose [Cephulac] 10 gm PO BID #250 ml Furosemide [Lasix] 40 mg PO DAILY #30 tab Continue Apixaban [Eliquis] 5 mg PO BID #60 tab Flecainide Acetate [Tambocor] 100 mg PO Q12H Famotidine [Pepcid] 20 mg PO DAILY #30 tab Discontinued Furosemide [Lasix] 20 mg PO DAILY@1400 Furosemide [Lasix] 40 mg PO DAILY Metoprolol Tartrate [Lopressor] 100 mg PO Q12H Potassium Chloride [Klor-Con M10] 10 meq PO DAILY Discharge Medication List Apixaban [Eliquis] 5 mg PO BID #60 tab 06/08/23 [Rx] Famotidine [Pepcid] 20 mg PO DAILY #30 tab 06/08/23 [Rx] Flecainide Acetate [Tambocor] 100 mg PO Q12H 07/03/23 [History] Furosemide [Lasix] 40 mg PO DAILY #30 tab 07/07/23 [Rx] Lactulose [Cephulac] 10 gm PO BID #250 ml 07/07/23 [Rx] Metoprolol Tartrate [Lopressor] 50 mg PO Q12H #60 tab 07/07/23 [Rx] Follow up Appointment(s)/Referral(s): Esau Wiley MD [Primary Care Provider] - 1-2 days Stanley Morrison DO [STAFF PHYSICIAN] - 1 Week Discharge Disposition: TRANSFER TO SNF/ECF
[2023-07-07] MEDS: NA PHOS,M-B/NA PHOS,DI-BA 133 ML ENEMA RECTAL ONE (14:40)
[2023-07-07 15:04] VITALS: BP 108/65; PULSE 68; RESP 16; TEMP 97.4
--- NOTE | 2023-07-09 15:43 | CDI ---
Documentation Clarification Form Date: 07/09/2023 03:30:00 PM From: Suzy Romeo Phone: Admit Date: 07/03/2023 01:55:00 PM Patient Name: Rossy Weir Visit Number: [id number] Discharge Date: 07/07/2023 03:53:00 PM ATTENTION: The Clinical Documentation Specialists (CDI) and [facility] Coding Staff appreciate your assistance in clarifying documentation. Please respond to the clarification below the line at the bottom and electronically sign. The CDI & [facility] Coding staff will review the response and follow-up if needed. Please note: Queries are made part of the Legal Health Record. If you have any questions, please contact the author of this message via ITS. Dr. Edward Mcmillan Cardiorenal syndrome is documented per Nephrology Consult and Progress Notes. Additional clarification regarding the stage of CKD is requested. History/Risk Factors: 87yo F, severehyponatremia, ACDHF, HTN, ATN on CKD, A Fib, CM, metabolic acidosis, hyperkalemia, acutetransaminases, AMS, DNR, HLD Creatinine peaked at 1.73 this admission and is 1.5 today. Baseline creatinine near 1. Clinical Indicators: BUN: 52 CR: 1.66 AfAm: 32 NonAf: 28 Treatment: Hdez catheterand is nonoliguric; Continue present supportive care measures. Continue treatment ofhyponatremiaas per nephrology on the case, recommending more diuretics to be given and fluidrestriction Please clarify the stage of the CKD, if known: [ ] CKD Stage 3a [ ] CKD Stage 3b [ x ] CKD Stage 4 [ ] Other, please specify [ ] Unable to determine Reference: [employer] Stage 1 eGFR = 90 and kidney damage for =3 months Stage 2 eGFR 60-89 and kidney damage for =3 months Stage 3a eGFR 45-59 and kidney damage for =3 months Stage 3b eGFR 30-44 and kidney damage for =3 months Stage 4 eGFR 15-29 r and kidney damage for =3 months Stage 5 eGFR <15 and kidney damage for =3 months (Template last revised: February 2023) MTDD
== END 2023-07-07 15:53 | DRG 291 ==
LOC: EC 09:57 → 3SCARD 13:55 → 6NMEDSUR 07-06 17:26
PROVIDERS: ADMIT Internal Medicine Geriatric Medicine; ATTEND Internal Medicine Geriatric Medicine
DX: I13.0 Hypertensive heart and chronic kidney disease with heart failure and stage 1 through stage 4 chronic kidney disease, or unspecified chronic kidney disease (principal); I50.33 Acute on chronic diastolic (congestive) heart failure; N17.0 Acute kidney failure with tubular necrosis; E22.2 Syndrome of inappropriate secretion of antidiuretic hormone; I48.19 Other persistent atrial fibrillation; E87.20 Acidosis, unspecified; N18.4 Chronic kidney disease, stage 4 (severe); I27.20 Pulmonary hypertension, unspecified; I42.9 Cardiomyopathy, unspecified; E86.0 Dehydration; K76.0 Fatty (change of) liver, not elsewhere classified; Z79.01 Long term (current) use of anticoagulants; I08.3 Combined rheumatic disorders of mitral, aortic and tricuspid valves; I65.23 Occlusion and stenosis of bilateral carotid arteries; Z66 Do not resuscitate; Z74.2 Need for assistance at home and no other household member able to render care; K59.00 Constipation, unspecified; T50.2X5A Adverse effect of carbonic-anhydrase inhibitors, benzothiadiazides and other diuretics, initial encounter; E87.5 Hyperkalemia; E78.5 Hyperlipidemia, unspecified; M19.90 Unspecified osteoarthritis, unspecified site; D72.828 Other elevated white blood cell count; M81.0 Age-related osteoporosis without current pathological fracture; R29.6 Repeated falls; W07.XXXA Fall from chair, initial encounter; Y92.009 Unspecified place in unspecified non-institutional (private) residence as the place of occurrence of the external cause; Z96.643 Presence of artificial hip joint, bilateral; Z91.81 History of falling; Z79.899 Other long term (current) drug therapy; Z88.2 Allergy status to sulfonamides; Z88.5 Allergy status to narcotic agent; Z11.52 Encounter for screening for COVID-19
CPT/HCPCS: 36415; 51702; 71046; 76705; 76770; 80048; 80053; 80076; 81001; 82140; 82248; 83605; 83735; 83880; 83930; 83935; 84132; 84295; 84300; 84443; 84484; 85025; 85027; 87040; 87636; 92960; 93005; 93880; 94760; 96361; 96365; 96375; 99285